=== PATIENT | female | born 1930 | race Caucasian/White ===

== ENCOUNTER 2016-10-19 08:50 | Inpatient (IN) | payer OTHER ==
[2016-10-19] VITALS (21 sets, daily range): BP systolic 119–140; BP diastolic 58–93; PULSE 67–80; RESP 10–22; Ht 152.4 cm; Wt 50.0 kg
[~2016-10-19] VITALS: Ht 152.4 cm; Wt 50.0 kg
[~2016-10-19 08:50] MED LIST: ACET-2047 PO; AMIO100T4 PO; BENA20TA65 PO; BISA5TAB6 PO; CALC-277 PO; CLOP75TA27 PO; CRAN425C PO; DOCU-159 PO; DULR PR; FLEETOIL PR; FURO-109 PO; HYDR-3498 PO; IPRA3AMP HHN; ISOS20TA19 PO; MAGN400O4 PO; METO-448 PO; MULT-551 PO; NIT4 SL; PANT40TA4 PO
[2016-10-19] MEDS ORDERED: CEFAZOLIN 1 GM/50 ML (PMX) 50 ML IVPB ONE (09:00)
[2016-10-19] MEDS ORDERED: IPRA3AMP INHALATION (09:48)
[2016-10-19] MEDS ORDERED: ZOLP5TAB PO (09:48)
[2016-10-19 10:06] LABS: ADD SCAN DIFF NO
[2016-10-19 10:12] LABS: BASOPHIL # 0.1 10^3/ul (0.0-0.1); BASOPHILS % 0.8 % (0.0-2.0); EOSINOPHILS # 0.1 10^3/ul (0.0-0.5); EOSINOPHILS % 1.1 % (0.0-7.0); HEMOGLOBIN 11.5 g/dl (12.0-16.0); LYMPHOCYTES # 1.7 10^3/ul (0.8-2.9); LYMPHOCYTES % 26.8 % (15.0-51.0); MEAN CORPUSCULAR HEMOGLOBIN 27.7 pg (29.0-33.0); MEAN CORPUSCULAR HGB CONC 30.3 g/dl (32.0-37.0); MEAN CORPUSCULAR VOLUME 91.6 fl (82.0-101.0); MEAN PLATELET VOLUME 9.8 fl (7.4-10.4); MONOCYTE # 0.6 10^3/ul (0.3-0.9); MONOCYTES % 8.8 % (0.0-11.0); NEUTROPHILS % 62.2 % (39.0-77.0); PLATELET COUNT 324 10^3/UL (140-415); RED BLOOD COUNT 4.15 10^6/ul (4.20-5.40); RED CELL DISTRIBUTION WIDTH 16.9 % (11.5-14.5); WHITE BLOOD COUNT 6.4 10^3/ul (4.8-10.8)
[2016-10-19] MEDS ORDERED: OMEPRAZOLE (10:22)
[2016-10-19 10:28] LABS: INR 1.15; PARTIAL THROMBOPLASTIN TIME 30.6 Sec (25.0-35.0); POTASSIUM 3.7 mmol/L (3.5-5.1); PROTIME 14.7 Sec (12.2-14.2); PT RATIO 1.1
[2016-10-19 10:29] LABS: CALCIUM 8.6 mg/dl (8.4-10.2); CREATININE 1.03 mg/dl (0.44-1.00)
[2016-10-19] MEDS ORDERED: HEPARIN 1000 UNITS/NS (A-LINE) 1,000 ML ONE (12:32)
[2016-10-19] MEDS ORDERED: LIDOCAINE 1% (MDV) 20 ML INJ ONE (12:32)
[2016-10-19] MEDS ORDERED: IODIXANOL LOCM 100 ML BTL ONE (12:32)
[2016-10-19] MEDS ORDERED: FENTAnyl 50 MCG/ML VIAL ONE (12:55)
[2016-10-19] MEDS ORDERED: IODIXANOL LOCM 50 ML BTL ONE (13:12)
[2016-10-19] MEDS ORDERED: CLOPIDOGREL 75 MG TAB PO SCH (14:00)
[2016-10-19] MEDS: SOD CHLORIDE 0.45% 1,000 ML IV SCH (14:33)
[2016-10-19] MEDS: ASPIRIN 81 MG TAB PO SCH (14:47)
--- NOTE | 2016-10-19 16:01 | RADRPT ---
Vent Rate: 73 bpm RR Interval: 0 msec [place] Interval: 208 msec QRS Duration: 90 msec QT Interval: 420 msec QTC Interval: 462 msec P-R-T [place]: 23 - 58 - 42 degrees Normal sinus rhythm Normal ECG Electronically Signed By: Adelfo Muse [id number]
--- NOTE | 2016-10-19 16:02 | RADRPT ---
Vent Rate: 75 bpm RR Interval: 0 msec VT Interval: 188 msec QRS Duration: 86 msec QT Interval: 400 msec QTC Interval: 446 msec P-R-T [place]: 50 - 59 - 53 degrees Normal sinus rhythm Septal infarct , age undetermined Abnormal ECG Electronically Signed By: Adelfo Muse [id number]
--- NOTE | 2016-10-19 20:23 | QN ---
Documentation Comment [id number] CHANTEL COLLINS MD Oct 19, 2016 20:23
[2016-10-19] MEDS ORDERED: BISACODYL 10 MG SUPP PR PRN (20:30)
[2016-10-19] MEDS ORDERED: MAGNESIUM HYDROXIDE 30ML CUP PO PRN (20:30)
[2016-10-19] MEDS ORDERED: ACETAMINOPHEN 325 MG TAB PO PRN (20:30)
[2016-10-19] MEDS ORDERED: HYDROCODONE/APAP (5/325) TAB PO PRN (20:30)
[2016-10-19] MEDS ORDERED: ZOLPIDEM 5 MG TAB PO PRN (20:30)
[2016-10-19] MEDS ORDERED: DOCUSATE SODIUM 100 MG CAP PO PRN (20:30)
[2016-10-19] MEDS ORDERED: ALBUTEROL/IPRATROPIUM (NEB) 3 ML AMP HHN PRN (20:30)
[2016-10-19] MEDS ORDERED: NITROGLYCERIN (SL) 0.4 MG TAB SL PRN (20:30)
[2016-10-19] MEDS ORDERED: BISACODYL (EC) 5 MG TAB PO PRN (20:30)
[2016-10-19] MEDS ORDERED: FUROSEMIDE 40 MG TAB PO SCH (21:00)
[2016-10-19] MEDS: ALBUTEROL/IPRATROPIUM (NEB) 3 ML AMP HHN SCH (21:39)
[2016-10-19] MEDS: METOPROLOL 25 MG TAB PO SCH (22:12)
[2016-10-19] MEDS: FUROSEMIDE 40 MG TAB PO SCH (22:12)
[2016-10-19] MEDS: ISOSORBIDE DINITRATE 20 MG TAB PO SCH (22:12)
[2016-10-20] VITALS (23 sets, daily range): BP systolic 102–133; BP diastolic 65–91; PULSE 61–73; RESP 10–22
[2016-10-20] MEDS: ALBUTEROL/IPRATROPIUM (NEB) 3 ML AMP HHN SCH ×4 (01:59→19:32)
--- NOTE | 2016-10-20 03:11 | HP ---
DATE OF ADMISSION: 10/19/2016 HISTORY OF PRESENT ILLNESS: The patient is a long term resident with history of CAD, CHF, CKD wh o presented here and underwent left heart catheterization with possible intervention by Dr. Dany sheridan. The patient has electrolyte imbalance and will need further treatment and is admitted for f urther management. The patient herself is unable to give any detailed history. PAST MEDICAL HISTORY: Positive for dyslipidemia, CKD, CAD, CHF. The patient has a history of diabe abdiel mellitus, congestive heart failure, hypertension, hyperlipidemia, atrial fibrillation, CAD, mitr al valve regurgitation, severe aortic stenosis, CAD status post PCI of the LAD. The patient has his tory of decreased ejection fraction, resolving. ALLERGIES: Negative. MEDICATION HISTORY: The patient is on 1. Tylenol. 2. Hydrocodone. 3. Albuterol. 4. Amiodarone. 5. Benazepril. 6. Bisacodyl. 7. Calcium carbonate. 8. Plavix. 9. Cranberry extract. 10. Docusate sodium. 11. Lasix. 12. Isosorbide. 13. Magnesium. 14. Metoprolol. 15. Mineral oil. 16. Multiple vitamin. 17. Nitroglycerin. 18. Protonix. 19. Ambien. REVIEW OF SYSTEMS: Cannot be obtained since the patient has been sleepy, weak. PHYSICAL EXAMINATION: GENERAL: The patient is a thin-looking female, awake, alert. VITAL SIGNS: Pulse 71, blood pressure 122/80. HEENT: Head is atraumatic, normocephalic. Pupils appear reactive. Conjunctivae have no icterus. NECK: Supple. LUNGS: Clear. CARDIOVASCULAR: S1, S2 normal. The patient has at least IV/ systolic murmur noted. ABDOMEN: Soft, nontender. Bowel sounds present. No palpable mass. EXTREMITIES: No cyanosis, clubbing. Edema positive. CENTRAL NERVOUS SYSTEM: The patient is awake, alert, no focal deficit. LABORATORY DATA: Hematocrit 38. Sodium 130, potassium 3.7, BUN 40, creatinine 1.03. IMPRESSION: 1. The patient is status post coronary angiogram. 2. Chronic kidney disease, coronary artery disease, diabetes mellitus, congestive heart failure. T he patient has aortic stenosis. The patient has mitral regurgitation. History of coronary artery d isease status post percutaneous coronary intervention, diabetes mellitus, hyperlipidemia, cardiac ar rhythmia. PLAN: To continue to follow recommendation from Dr. Dany He. The patient will have home med ications reviewed and continued. Orders were done. Dictated By: CHANTEL COLLINS MD BS/NTS Conf#: [id number] DID#: [id number]
--- NOTE | 2016-10-20 04:11 | OPR ---
DATE OF OPERATION: 10/19/2016 INDICATION FOR THE PROCEDURE: Chest pain, shortness of breath, abnormal cardiac stress test, histor y of stent placements. The patient has a stent in the RCA and a stent in the LAD already. PROCEDURE: 1. Left heart catheterization. 2. Selective right coronary angiography. 3. Selective left coronary angiography. 4. Left ventriculogram. 5. Right femoral artery angiography. 6. Conscious sedation for 1 hour. 7. Autonomic nervous system interrogation. 8. Defibrillator pad placement anteriorly and posteriorly. DESCRIPTION OF PROCEDURE: After informed consent was obtained by the patient, the patient was broug ht into the cardiac catheterization laboratory where the patient's right groin and left groin were p repped and draped in usual sterile fashion. Following this, 1% lidocaine was used in order to infil trate the right groin. Then, following this, the patient then received a 6-Luxembourger sheath into the r ight femoral artery with no complications followed by sheaths placed over the wire system into the r ight coronary artery, left coronary artery, as well as the left ventricle. FINDINGS: 1. The left main coronary artery was patent. 2. The patient had a stent in the LAD, proximal region; however, prior to the stent, there was appr oximately 20% to 30% narrowing. 3. The RCA had a stent in the proximal region; however, distally, the patient had diffuse disease, approximately 80% to 90%. 4. The circumflex coronary artery had approximately 60 to 80% lesion. I have recommended for the patient to be seen by Dr. Sandoval for intervention. He will evaluate her and follow through from here. Left ventriculogram was performed, and ejection fraction was not well visualized. As a result, the patient will require an echocardiogram. IMPRESSION AND PLAN: The patient has coronary artery disease which will be stented by Dr. Sandoval to morning. Ejection fraction will be evaluated by an echo. In addition to this, the patient h as chronic kidney disease with a creatinine that is elevated. Therefore, the patient will require I V hydration tonight. Dictated By: DEJAH CAICEDO MD LP/NTS Conf#: [id number] DID#: [id number]
[2016-10-20] MEDS: SOD CHLORIDE 0.45% 1,000 ML IV SCH (04:38)
[2016-10-20] MEDS: FUROSEMIDE 40 MG TAB PO SCH ×2 (06:24→18:19)
[2016-10-20] MEDS ORDERED: IODIXANOL LOCM 100 ML BTL ONE (06:53)
[2016-10-20] MEDS ORDERED: LIDOCAINE 1% (MDV) 20 ML INJ ONE (06:53)
[2016-10-20] MEDS ORDERED: NITROGLYCERIN (IC) 100 MCG/ML INJ ONE (06:54)
[2016-10-20] MEDS ORDERED: VERAPAMIL 5 MG INJ ONE (06:54)
[2016-10-20] MEDS ORDERED: FENTAnyl 50 MCG/ML VIAL ONE (06:55)
[2016-10-20] MEDS ORDERED: MIDAZOLAM 1 MG/ML 2 ML INJ ONE (06:55)
[2016-10-20 07:09] LABS: ADD SCAN DIFF NO
[2016-10-20 07:13] LABS: BASOPHILS % 0.7 % (0.0-2.0); EOSINOPHILS % 0.7 % (0.0-7.0); HEMATOCRIT 33.7 % (37.0-47.0); HEMOGLOBIN 10.4 g/dl (12.0-16.0); LYMPHOCYTES # 1.8 10^3/ul (0.8-2.9); LYMPHOCYTES % 29.9 % (15.0-51.0); MEAN CORPUSCULAR HEMOGLOBIN 28.4 pg (29.0-33.0); MEAN CORPUSCULAR HGB CONC 30.9 g/dl (32.0-37.0); MEAN CORPUSCULAR VOLUME 92.1 fl (82.0-101.0); MONOCYTE # 0.4 10^3/ul (0.3-0.9); NEUTROPHIL # 3.6 10^3/ul (1.6-7.5); NEUTROPHILS % 61.2 % (39.0-77.0); PLATELET COUNT 316 10^3/UL (140-415); RED BLOOD COUNT 3.66 10^6/ul (4.20-5.40); RED CELL DISTRIBUTION WIDTH 16.8 % (11.5-14.5); WHITE BLOOD COUNT 5.9 10^3/ul (4.8-10.8)
[2016-10-20] MEDS ORDERED: BIVALIRUDIN 250MG /NS 50 ML 50 ML IVPB ONE (07:27)
[2016-10-20 07:30] LABS: POTASSIUM 3.8 mmol/L (3.5-5.1)
[2016-10-20 07:32] LABS: BILIRUBIN,INDIRECT 0.4 mg/dl (0-1.1); BILIRUBIN,TOTAL 0.4 mg/dl (0.2-1.3); CREATININE 1.01 mg/dl (0.44-1.00)
[2016-10-20 07:33] LABS: CALCIUM 8.1 mg/dl (8.4-10.2)
[2016-10-20] MEDS ORDERED: CLOPIDOGREL 75 MG TAB ONE (08:28)
[2016-10-20] MEDS ORDERED: ASPIRIN 81 MG TAB ONE (08:29)
--- NOTE | 2016-10-20 08:40 | CONS ---
DATE OF ADMISSION: 10/19/2016 DATE OF CONSULTATION: 10/20/2016 INTERVENTIONAL CARDIOLOGY CONSULTATION REFERRING PHYSICIAN: Dejah He MD REASON FOR CONSULTATION: Coronary artery disease, need for intervention. CHIEF COMPLAINT: Dyspnea on exertion. HISTORY OF PRESENT ILLNESS: Thank you for this referral. History is obtained from the patient, rev iew of the old chart. A patient of Dr. He. This is an 86-year-old female with history of c oronary artery disease, status post PCI of LAD, paroxysmal atrial fibrillation, congestive heart elyssa lure, mitral valve disorder who underwent diagnostic angiography yesterday because of her symptomati c dyspnea on exertion consistent with her anginal equivalent. The patient was noted to have severe right coronary artery stenosis. We were kindly asked to evaluate the patient, and after hydration f or intervention. The patient has chronic kidney disease and was felt, as mentioned, maybe better hy dration prior to intervention. PAST MEDICAL HISTORY: History of coronary artery disease, status post PCI of LAD, history of paroxy smal atrial fibrillation, history of chronic kidney disease, congestive heart failure, history of mi tral valve regurgitation appeared to be CVA, history of aortic stenosis. History of dyslipidemia, d iabetes. MEDICATIONS: As per medication reconciliation, personally reviewed. Eliquis on hold now. ALLERGIES: NO KNOWN DRUG ALLERGIES. SOCIAL HISTORY: Does not smoke, lives in a halfway. FAMILY HISTORY: No reported coronary artery disease. REVIEW OF SYSTEMS: As above mentioned. Is not very active, uses assistance to walk. PHYSICAL EXAMINATION: VITAL SIGNS: Temperature 97.4, heart rate of 66, blood pressure 115/70, respiratory rate of 14, sat urating 96%. HEENT: Normocephalic, atraumatic. Pupils are equal. CARDIOVASCULAR: ____ systolic murmur. PULMONARY: With no wheezes heard. GASTROINTESTINAL: Soft, nontender. EXTREMITIES: No significant trivial lower extremity edema. NEUROLOGIC: Awake and alert, responds. PSYCHIATRIC: Appears to be calm and pleasant. LABORATORY DATA: Shows sodium 137, potassium 3.7, BUN of 40, creatinine of 1.03, glucose of 98. Mo st recent one showed hemoglobin of 10.4, platelets of 316. Cardiac catheterization done by Dr. Dejah He was personally reviewed which showed right [place] ry artery is heavily calcified, diffusely diseased, up to 80% to 90% stenosis. ASSESSMENT AND PLAN: 1. Angina equivalent. 2. Dyspnea on exertion. 3. Significant coronary artery disease. 4. History of paroxysmal atrial fibrillation 5. Hypertension. 6. Dyslipidemia. 7. Diabetes. 8. History of mitral valve regurgitation. 9. Congestive heart failure. 10. Chronic kidney disease. RECOMMENDATIONS: Will plan for PCI of the right coronary artery. Risks and benefits have been disc ussed with the patient including infection, vascular complication, bleeding complication, MD, stroke , arrhythmia, , renal failure, etc., discussed with the patient. Consent has been obtained. Dictated By: MELIDA FENTON MD AV/NTS Conf#: [id number] DID#: [id number] CC: DEJAH HE MD;*End*
[2016-10-20] MEDS ORDERED: SOD CHLORIDE 0.9% 1,000 ML IV SCH (08:45)
[2016-10-20] MEDS: METOPROLOL 25 MG TAB PO SCH ×2 (09:00→20:50)
[2016-10-20] MEDS: ISOSORBIDE DINITRATE 20 MG TAB PO SCH ×3 (09:00→20:50)
[2016-10-20] MEDS ORDERED: ACETAMINOPHEN 325 MG TAB PO PRN (09:00)
[2016-10-20] MEDS: BENAZEPRIL 20 MG TAB PO SCH (09:00)
[2016-10-20] MEDS: PANTOPRAZOLE (EC) 40 MG TAB PO SCH (09:00)
[2016-10-20] MEDS: AMIODARONE 200 MG TAB PO SCH (09:00)
[2016-10-20] MEDS ORDERED: OXYCODONE/ACETAMINOPHEN (5/325) TAB PO PRN (09:00)
[2016-10-20] MEDS: CALCIUM/VITAMIN D (500/200) TAB PO SCH (09:00)
--- NOTE | 2016-10-20 09:17 | SP ---
DATE OF PROCEDURE: 10/20/2016 NAME OF PROCEDURE: 1. Selective right coronary angiography. 2. Successful percutaneous transluminal coronary angioplasty and stenting of the distal right coron brandy artery and subsequent angioplasty of the posterior descending artery. SURGEON: Melida Sandoval MD INDICATIONS: This is a pleasant 86-year-old female who was recommended to undergo PCI of the right coronary artery after diagnostic angiography done by Dr. Dejah He which showed significant rig ht coronary artery stenosis. The patient also with angina equivalent symptoms. FINDINGS: Right coronary is diffusely diseased. Distally, up to 80 to 90% stenosis. The posterior descending artery is a small vessel and had about 90% stenosis. After successful PTCA stenting of the distal right coronary artery and angioplasty of the PDA, there was less than 10% residual stenos is left. DESCRIPTION OF PROCEDURE: Written informed consent was obtained after risks and benefits discussed with the patient in detail. The patient was brought to the phlebotomist lab assistant and placed in supine position, prepped and draped in sterile fashion. Right coronary was anesthetized with 1% lidocaine, modified Seldinger technique, a 6-Slovak sheath in the right femoral artery. Right femoral angiogram was per formed. The right side was perclosed, and a 6-Slovak long sheath was placed in right femoral artery . JR4 catheter was advanced to the right coronary artery. Angiogram was obtained. BMW wire used t o cross the lesion in the posterior descending artery. A 2.0 balloon was used and inflated in the p osterior descending artery as well as distal right coronary artery. Angiogram was obtained. She ap peared to have a heavily calcified lesion in the distal right coronary artery. A 2.0 noncompliant b alloon was used to predilate this vessel with a noncompliant balloon. Angiogram was obtained. Then , I used a yudi wire to advance a 2.5 x 24 mm Seldinger drug-eluting to the distal right coronary a rtery. Angiogram was obtained. It was deployed. Then, another 2.5 x 32 mm was placed proximal to i t into the mid to distal right coronary artery and deployed at 18 atmospheres. The balloon was adva nced. The overlapping area was post-dilated up to 16 atmospheres. Angiogram was obtained. Then, I used a 3.0 noncompliant balloon to open up the distal portion which appeared to be not completely e xpanding. It was postdilated up to 20 atmospheres. Finally, I used a 2.0 balloon which was placed across the posterior descending artery which was ballooned and dilated at 8 atmospheres. Final rito ogram was obtained with LISA 3 flow, no evidence of dissection, and less than 10% residual stenosis. Catheter and Glidewire were removed. Perclose was successfully deployed. The patient tolerated t he procedure well with no apparent complication. TOTAL CONTRAST USED: 45 mL RECOMMENDATIONS: Aggressive medical therapy, dual antiplatelet therapy. Dictated By: MELIDA SANDOVAL MD AV/JOVANY Conf#: [id number] DID#: [id number] CC: DEJAH HE MD;*End*
[2016-10-20] MEDS: ASPIRIN 81 MG TAB PO SCH (10:05)
[2016-10-20] MEDS: CLOPIDOGREL 75 MG TAB PO SCH (10:11)
--- NOTE | 2016-10-20 12:12 | CONS ---
Date/Time of Note Date/Time of Note DATE: 10/20/16 TIME: 12:09 Assessment/Plan Assessment/Plan Chief Complaint/Hosp Course 1. Status post coronary angiogram, pt is stable. 2. Chronic kidney disease, 3. coronary artery disease, 4. Diabetes mellitus, controlled 5. CHF, exacerbation 6. hyperlipidemia, Problems: Additional Assessment/Plan 1/. PT can be transferred to telemetry service 2. continue oxygen therapy Consultation Date/Type/Reason Admit Date/Time Oct 19, 2016 at 15:45 Initial Consult Date 24 HR Interval Summary Constitutional: improved Exam/Review of Systems Vital Signs Vitals Vital Signs Date Time Temp Pulse Resp B/P Pulse Ox O2 Delivery O2 Flow Rate FiO2 10/20/16 10:30 61 17 127/91 100 Nasal Cannula 10/20/16 09:30 97.5 10/20/16 09:15 2.0 10/19/16 21:48 21 Intake and Output 10/19/16 10/19/16 10/20/16 15:00 23:00 07:00 Intake Total 120 ml 1550 ml Balance 120 ml 1550 ml Exam Constitutional: alert, oriented Psych: no complaints Head: normocephalic Eyes: nl conjunctiva ENMT: nl external ears & nose Neck: supple Respiratory: crackles/rales Cardiovascular: regular rate and rhythm Gastrointestinal: soft Musculoskeletal: muscle weakness Results Result Diagram: 10/20/16 0648 10/20/16 0635 Results 24 hrs Laboratory Tests Test 10/20/16 06:35 10/20/16 06:48 Sodium Level 133 L Potassium Level 3.8 Chloride Level 97 Carbon Dioxide Level 29 Anion Gap 11 Blood Urea Nitrogen 35 H Creatinine 1.01 H Glucose Level 84 Calcium Level 8.1 L Total Bilirubin 0.4 Direct Bilirubin 0.00 Indirect Bilirubin 0.4 Aspartate Amino Transf (AST/SGOT) 31 Alanine Aminotransferase (ALT/SGPT) 28 Alkaline Phosphatase 132 H Total Protein 6.0 L Albumin 3.0 L Globulin 3.00 Albumin/Globulin Ratio 1.00 White Blood Count 5.9 Red Blood Count 3.66 L Hemoglobin 10.4 L Hematocrit 33.7 L Mean Corpuscular Volume 92.1 Mean Corpuscular Hemoglobin 28.4 L Mean Corpuscular Hemoglobin Concent 30.9 L Red Cell Distribution Width 16.8 H Platelet Count 316 Mean Platelet Volume 10.0 Neutrophils % 61.2 Lymphocytes % 29.9 Monocytes % 7.0 Eosinophils % 0.7 Basophils % 0.7 Nucleated Red Blood Cells % 0.0 Neutrophils # 3.6 Lymphocytes # 1.8 Monocytes # 0.4 Eosinophils # 0.0 Basophils # 0.0 Nucleated Red Blood Cells # 0.0 Medications Medications Current Medications Sodium Chloride (1/2 NS) 1,000 ml @ 75 mls/hr [id number] IV Last administered on 10/20/16 04:38; Admin Dose 75 MLS/HR; Start 10/19/16 at 14:00; Stop 10/20/16 at 14:00 Aspirin (Aspirin) 81 mg DAILY PO Last administered on 10/20/16 10:05; Admin Dose 81 MG; Start 10/19/16 at 14:00 Acetaminophen (Tylenol Tab) 650 mg Q6H PRN PO PAIN AND OR ELEVATED TEMP; Start 10/19/16 at 20:30 Amiodarone HCl (Cordarone) 100 mg DAILY PO ; Start 10/20/16 at 09:00 Benazepril HCl (Lotensin) 20 mg DAILY PO ; Start 10/20/16 at 09:00 Bisacodyl (Dulcolax) 5 mg DAILY PRN PO CONSTIPATION; Start 10/19/16 at 20:30 Bisacodyl (Dulcolax Supp) 10 mg DAILY PRN [place] CONSTIPATION; Start 10/19/16 at 20 :30 Calcium/Vitamin D (Oyster Shell/ Vit-D (500/200)) 1 tab DAILY PO ; Start at 09:00 Clopidogrel Bisulfate (plaVIX) 75 mg DAILY PO Last administered on 10/20/16 10 :11; Admin Dose 75 MG; Start 10/20/16 at 09:00 Docusate Sodium (Colace) 200 mg QHS PRN PO CONSTIPATION; Start 10/19/16 at 20: 30 Isosorbide Dinitrate (Isordil) 20 mg TID PO Last administered on 10/19/16 22: 12; Admin Dose 20 MG; Start 10/19/16 at 21:00 Magnesium Hydroxide (Milk Of Mag) 30 ml DAILY PRN PO CONSTIPATION; Start at 20:30 Metoprolol Tartrate (Lopressor) 25 mg BID PO Last administered on 10/19/16 22: 12; Admin Dose 25 MG; Start 10/19/16 at 21:00 Nitroglycerin (Nitroglycerin (Sl Tab) 0.4 Mg) 1 tab Q5M PRN SL ANGINA; Start at 20:30 Pantoprazole (Protonix Tab) 40 mg DAILY PO ; Start 10/20/16 at 09:00 Zolpidem Tartrate (Ambien) 2.5 mg QHS PRN PO INSOMNIA; Start 10/19/16 at 20:30 Influenza Virus Vaccine (Fluzone) 0.5 ml ONCE ONCE IM* ; Start 10/23/16 at 09:00 ; Stop 10/23/16 at 09:01 Acetaminophen (Tylenol Tab) 650 mg Q4H PRN PO NON-CARDIAC PAIN LEVEL 1-3; Start 10/20/16 at 09:00 Oxycodone/ Acetaminophen 1 tab 1 tab Q4H PRN PO REPORTED NON-CARDIAC PAIN 4-7; Start 10/20/16 at 09:00 Sodium Chloride (NS) 1,000 ml @ 75 mls/hr [id number] IV Last administered on 10/20t 10:05; Admin Dose 75 MLS/HR; Start 10/20/16 at 08:45; Stop 10/20/16 at 22: 04 Atorvastatin Calcium (Lipitor) 20 mg HS PO ; Start 10/20/16 at 21:00 KAVON BLANK Oct 20, 2016 12:12
--- NOTE | 2016-10-20 14:14 | RADRPT ---
Vent Rate: 64 bpm RR Interval: 0 msec [place] Interval: 230 msec QRS Duration: 92 msec QT Interval: 456 msec QTC Interval: 470 msec P-R-T [place]: 24 - 54 - 36 degrees Sinus rhythm with 1st degree AV block Otherwise normal ECG Electronically Signed By: Adelfo Muse [id number]
[2016-10-20] MEDS ORDERED: GLUCOSE GEL 15 GRAM TUBE PO PRN ×2 (18:30)
[2016-10-20] MEDS ORDERED: DEXTROSE 50% 50 ML SYRINGE IV PRN ×2 (18:30)
[2016-10-20] MEDS ORDERED: GLUCAGON 1 MG INJ IM PRN (18:30)
[2016-10-20] MEDS ORDERED: GLUCOSE GEL 15 GRAM TUBE BUCCAL PRN (18:30)
[2016-10-20] MEDS ORDERED: ONDANSETRON 4 MG INJ IV PRN (18:30)
[2016-10-20] MEDS: INSULIN ASPART [NOVOLOG] 3 ML PEN SC SCH (20:50)
[2016-10-20] MEDS ORDERED: ATORVASTATIN 20 MG TAB PO SCH (21:00)
[2016-10-21] VITALS (17 sets, daily range): BP systolic 107–146; BP diastolic 69–85; PULSE 60–83; RESP 11–25
[2016-10-21] MEDS: ALBUTEROL/IPRATROPIUM (NEB) 3 ML AMP HHN SCH ×3 (01:08→14:44)
[2016-10-21] MEDS ORDERED: ACCU-CHEK XX SCH (02:00)
[2016-10-21 05:08] LABS: ADD SCAN DIFF NO
[2016-10-21 05:17] LABS: BASOPHIL # 0.1 10^3/ul (0.0-0.1); BASOPHILS % 0.8 % (0.0-2.0); EOSINOPHILS # 0.1 10^3/ul (0.0-0.5); EOSINOPHILS % 0.9 % (0.0-7.0); HEMATOCRIT 34.6 % (37.0-47.0); HEMOGLOBIN 10.3 g/dl (12.0-16.0); LYMPHOCYTES # 1.6 10^3/ul (0.8-2.9); MEAN CORPUSCULAR HEMOGLOBIN 27.5 pg (29.0-33.0); MEAN CORPUSCULAR HGB CONC 29.8 g/dl (32.0-37.0); MEAN CORPUSCULAR VOLUME 92.5 fl (82.0-101.0); MEAN PLATELET VOLUME 9.9 fl (7.4-10.4); MONOCYTE # 0.7 10^3/ul (0.3-0.9); MONOCYTES % 10.9 % (0.0-11.0); NEUTROPHIL # 4.1 10^3/ul (1.6-7.5); NEUTROPHILS % 62.8 % (39.0-77.0); PLATELET COUNT 280 10^3/UL (140-415); RED BLOOD COUNT 3.74 10^6/ul (4.20-5.40); RED CELL DISTRIBUTION WIDTH 17.1 % (11.5-14.5); WHITE BLOOD COUNT 6.6 10^3/ul (4.8-10.8)
[2016-10-21] MEDS: FUROSEMIDE 40 MG TAB PO SCH (05:26)
[2016-10-21 05:33] LABS: POTASSIUM 3.8 mmol/L (3.5-5.1)
[2016-10-21 05:36] LABS: CREATININE 1.09 mg/dl (0.44-1.00)
[2016-10-21 05:37] LABS: CALCIUM 7.9 mg/dl (8.4-10.2)
[2016-10-21] MEDS: INSULIN ASPART [NOVOLOG] 3 ML PEN SC SCH ×2 (07:35→11:30)
--- NOTE | 2016-10-21 07:45 | PDOCDIS ---
Discharge Instructions CONDITION Patient Condition: Stable HOME CARE INSTRUCTIONS: Diet Instructions: Low Fat /Cholesterol ACTIVITY: Activity Restrictions: Slowly Increase Activity FOLLOW UP/APPOINTMENTS Appointments F/U W DR COLLINS AT [facility] [address] [address] CHANTEL COLLINS MD Oct 21, 2016 07:45
[2016-10-21] MEDS ORDERED: ASPI81TA3 PO (07:47)
[2016-10-21] MEDS ORDERED: ACET325T40 PO (07:47)
[2016-10-21] MEDS ORDERED: Oxycodone/Acetamin (5/325) PO (07:47)
[2016-10-21] MEDS ORDERED: ATOR20TA65 PO (07:47)
[2016-10-21] MEDS: METOPROLOL 25 MG TAB PO SCH (09:00)
[2016-10-21] MEDS: PANTOPRAZOLE (EC) 40 MG TAB PO SCH (09:19)
[2016-10-21] MEDS: CLOPIDOGREL 75 MG TAB PO SCH (09:19)
[2016-10-21] MEDS: ISOSORBIDE DINITRATE 20 MG TAB PO SCH ×2 (09:20→13:18)
[2016-10-21] MEDS: CALCIUM/VITAMIN D (500/200) TAB PO SCH (09:20)
[2016-10-21] MEDS: BENAZEPRIL 20 MG TAB PO SCH (09:21)
[2016-10-21] MEDS: AMIODARONE 200 MG TAB PO SCH (09:23)
[2016-10-21] MEDS: ASPIRIN 81 MG TAB PO SCH (09:24)
[2016-10-23] MEDS ORDERED: INFLUENZA VIRUS VACCINE 0.5 ML SYG IM* ONE (09:00)
== END 2016-10-21 17:50 | DRG 247 ==
LOC: SDS 08:50 → MS4 15:45 → ICU 10-20 08:57
PROVIDERS: ADMIT Internal Medicine; ATTEND Internal Medicine
PROC: B2111ZZ Fluoroscopy of Multiple Coronary Arteries using Low Osmolar Contrast (ICD-10-PCS; 2016-10-19)
PROC: B2151ZZ Fluoroscopy of Left Heart using Low Osmolar Contrast (ICD-10-PCS; 2016-10-19)
PROC: 4A023N7 Measurement of Cardiac Sampling and Pressure, Left Heart, Percutaneous Approach (ICD-10-PCS; principal; 2016-10-19 11:30)
PROC: 027035Z Dilation of Coronary Artery, One Artery with Two Drug-eluting Intraluminal Devices, Percutaneous Approach (ICD-10-PCS; 2016-10-20 07:30)
DX: I25.119 Atherosclerotic heart disease of native coronary artery with unspecified angina pectoris (principal); E11.9 Type 2 diabetes mellitus without complications; I12.9 Hypertensive chronic kidney disease with stage 1 through stage 4 chronic kidney disease, or unspecified chronic kidney disease; Z95.5 Presence of coronary angioplasty implant and graft; Z79.02 Long term (current) use of antithrombotics/antiplatelets; N18.9 Chronic kidney disease, unspecified
CPT/HCPCS: 80048; 80053; 82962; 85025; 85610; 85730; 87081; 93005; 93454; 93458; 94640; 94664; C1725; C1760; C1769; C1874; C1887; C1894; J0583; J1644; J1815; J2250; J2405; J3010; J7030; Q9967

== ENCOUNTER 2017-02-15 15:03 | Emergency (ER) | payer OTHER ==
[~2017-02-15] VITALS: Ht 149.9 cm; Wt 55.0 kg
[~2017-02-15 15:03] MED LIST changes: +ACET325T40 PO; +ASPI81TA3 PO; +ATOR20TA65 PO; +BISA10SU75 PR; -DULR PR; -FLEETOIL PR; +IPRA3AMP INHALATION; +MINE133E23 PR; +OMEPRAZOLE; +Oxycodone/Acetamin (5/325) PO; +ZOLP5TAB PO
[2017-02-15] MEDS ORDERED: SOD CHLORIDE 0.9% 500 ML IV STA (15:13)
[2017-02-15 15:20] VITALS: Ht 149.9 cm; Wt 55.0 kg
[2017-02-15 15:27] LABS: BASOPHIL # 0.1 10^3/ul (0.0-0.1); BASOPHILS % 0.9 % (0.0-2.0); EOSINOPHILS # 0.2 10^3/ul (0.0-0.5); EOSINOPHILS % 2.4 % (0.0-7.0); HEMATOCRIT 28.5 % (37.0-47.0); HEMOGLOBIN 9.3 g/dl (12.0-16.0); LYMPHOCYTES # 1.1 10^3/ul (0.8-2.9); LYMPHOCYTES % 16.6 % (15.0-51.0); MEAN CORPUSCULAR HEMOGLOBIN 32.1 pg (29.0-33.0); MEAN CORPUSCULAR HGB CONC 32.6 g/dl (32.0-37.0); MEAN CORPUSCULAR VOLUME 98.3 fl (82.0-101.0); MEAN PLATELET VOLUME 9.3 fl (7.4-10.4); MONOCYTE # 0.5 10^3/ul (0.3-0.9); MONOCYTES % 8.2 % (0.0-11.0); NEUTROPHIL # 4.5 10^3/ul (1.6-7.5); NEUTROPHILS % 71.3 % (39.0-77.0); PLATELET COUNT 359 10^3/UL (140-415); RED CELL DISTRIBUTION WIDTH 14.6 % (11.5-14.5); WHITE BLOOD COUNT 6.3 10^3/ul (4.8-10.8)
[2017-02-15 15:45] LABS: INR 1.24; PARTIAL THROMBOPLASTIN TIME 30.8 Sec (25.0-35.0); PROTIME 15.7 Sec (12.2-14.2); PT RATIO 1.2
--- NOTE | 2017-02-15 15:48 | RADRPT ---
PROCEDURE: XR Chest. CLINICAL INDICATION: Shortness of breath. TECHNIQUE: A single portable view of the chest was obtained. COMPARISON: 09/12/2016 FINDINGS: The aorta is tortuous and atherosclerotic. The cardiomediastinal silhouette is otherwise enlarged. Diffuse pulmonary vascular congestion is seen with underlying pulmonary edema. Bilateral pleural eff usions are seen. The soft tissues and osseous structures demonstrate benign age related senescent ch anges. IMPRESSION: Radiographic findings consistent with congestive heart failure as described above. RPTAT: [facility] Physician Marla Date Time Electronically viewed and signed by Physician Marla on 02/15/2017 15:47 /
[2017-02-15 16:42] LABS: ALANINE AMINOTRANSFERASE 23 IU/L (13-69); ALBUMIN 2.3 g/dl (3.3-4.9); ALBUMIN/GLOBULIN RATIO 0.88; ALKALINE PHOSPHATASE 87 IU/L (42-121); ANION GAP 18 (8-16); ASPARTATE AMINO TRANSFERASE 18 IU/L (15-46); BILIRUBIN,INDIRECT 0.2 mg/dl (0-1.1); BILIRUBIN,TOTAL 0.2 mg/dl (0.2-1.3); BLOOD UREA NITROGEN 37 mg/dl (7-20); CALCIUM 7.9 mg/dl (8.4-10.2); CARBON DIOXIDE 25 mmol/L (21-31); CHLORIDE 103 mmol/L (97-110); CREATININE 0.68 mg/dl (0.44-1.00); GLUCOSE 117 mg/dl (70-220); POTASSIUM 3.6 mmol/L (3.5-5.1); SODIUM 142 mmol/L (135-144); TOTAL PROTEIN 4.9 g/dl (6.1-8.1)
[2017-02-15 16:55] LABS: TROPONIN-I < 0.012 ng/ml (0.00-0.12)
[2017-02-15] MEDS ORDERED: HYDR-906 PO (16:55)
[2017-02-15] MEDS ORDERED: RTPRO5 IH (16:57)
[2017-02-15] MEDS ORDERED: AMIO200T2 PO (16:59)
[2017-02-15] MEDS ORDERED: ASPI-664 PO (17:00)
[2017-02-15] MEDS ORDERED: BENA5TAB2 PO (17:00)
[2017-02-15] MEDS ORDERED: BRIM15DR7 BOTH EYES (17:01)
[2017-02-15] MEDS ORDERED: CILO100T PO (17:02)
[2017-02-15] MEDS ORDERED: DOCU-159 PO (17:02)
[2017-02-15] MEDS ORDERED: FER325 PO (17:03)
[2017-02-15] MEDS ORDERED: IPRA12.93 INHALATION (17:04)
[2017-02-15] MEDS ORDERED: MAGN400T28 PO (17:04)
[2017-02-15] MEDS ORDERED: MULT-105 PO (17:05)
--- NOTE | 2017-02-15 17:05 | ERD ---
ER Documentation Chief Complaint Date/Time DATE: 02/15/17 TIME: 17:03 Chief Complaint pt was recently discharged and sent to [facility]; pt hypotensive HPI This is an 87-year-old female who presents to the emergency room for evaluation of hypotension. The patient is unable to give a history secondary to her cognitive deficits at this time. This patient was recently discharged and was sent to a rehabilitation facility by her primary care physician, Dr. collins, the patient has been afebrile, and the snf was not comfortable accepting this patient in transfer the patient to the emergency room. ROS All systems reviewed and are negative except as per history of present illness. Medications Home Meds Active Scripts [Oxycodone/Acetamin (5/325)] 1 TAB TAB No Conflict Check, 1 TAB PO Q4H Y for REPORTED NON-CARDIAC PAIN 4-7 for 10 Days Prov:CHANTEL COLLINS MD 10/21/16 Acetaminophen (MAPAP) 325 Mg Tablet, 650 MG PO Q4H Y for NON-CARDIAC PAIN LEVEL 1-3 for 10 Days, TAB Prov:CHANTEL COLLINS MD 10/21/16 Atorvastatin Calcium (Atorvastatin Calcium) 20 Mg Tablet, 20 MG PO HS for 28 Days, #30 TAB Prov:CHANTEL COLLINS MD 10/21/16 Nitroglycerin* (Nitrostat*) 0.4 Mg Tab.subl, 1 TAB SL Q5M Y for ANGINA for 28 Days Prov:CHANTEL COLLINS MD 03/20/16 Metoprolol Tartrate* (Lopressor*) 25 Mg Tab, 25 MG PO BID for 28 Days, TAB Prov:CHANTEL COLLINS MD 03/20/16 Clopidogrel Bisulfate (Clopidogrel) 75 Mg Tablet, 75 MG PO DAILY for 28 Days, TAB Prov:CHANTEL COLLINS MD 03/20/16 Reported Medications Docusate Sodium* (Docusate Sodium*) 100 Mg Capsule, 100 MG PO BID, #60 CAP 02/15/17 Cilostazol* (Cilostazol*) 100 Mg Tablet, 100 MG PO DAILY, TAB 02/15/17 Brimonidine Tartrate* (Brimonidine Tartrate*) 0.2%-15ML Drop Opht, 1 DROP BOTH EYES BID, #1 EA 02/15/17 Benazepril Hcl* (Benazepril Hcl*) 5 Mg Tablet, 5 MG PO DAILY, #30 TAB 02/15/17 Aspirin* (Aspirin* EC) 81 Mg Tablet.dr, 81 MG PO DAILY, TAB 02/15/17 Amiodarone Hcl* (Amiodarone Hcl*) 200 Mg Tablet, 100 MG PO DAILY, #30 TAB 02/15/17 Albuterol Sulfate (Albuterol Sulfate) 2.5 Mg/0.5 Ml Vial.neb, 0.5 ML IH Q6H AND Q4H NEEDED DYSPNEA 02/15/17 Hydrocodone/Acetaminophen ([place] 5-325 Tablet) 1 Each Tablet, 1 EACH PO Q4H Y for PAIN, TAB 02/15/17 [Omeprazole] No Conflict Check 10/19/16 Magnesium Hydroxide* (Milk Of Magnesia*) 400 Mg/5 Ml Oral.susp, 30 ML PO DAILY Y for CONSTIPATION, ML 09/12/16 Furosemide* (Lasix*) 40 Mg Tablet, 40 MG PO BID, TAB 09/12/16 Bisacodyl* (Bisacodyl*) 10 Mg Supp, 10 MG [place] DAILY Y for CONSTIPATION, SUPP 09/12/16 Cranberry Extract (Cranberry) 425 Mg Capsule, 425 MG PO DAILY, CAP 09/12/16 Calcium Carbonate/Vitamin D3 (OYSTER SHELL 500 MG + VIT D TB) 1 Each Tablet, 1 EACH PO DAILY, TAB 09/12/16 Pantoprazole* (Pantoprazole*) 40 Mg Tablet.dr, 40 MG PO DAILY, TAB 04/07/16 Discontinued Reported Medications Ipratropium-Albuterol (Ipratropium-Albuterol) 0.5-3 Mg/3 Ml Ampul.neb, 3 ML INHALATION Q6, #30 VIAL 10/19/16 Zolpidem Tartrate* (Ambien*) 5 Mg Tablet, 2.5 MG PO QHS Y for INSOMNIA, #30 TAB 10/19/16 Acetaminophen* (Acetaminophen*) 650 Mg Tablet, 650 MG PO Q6H Y for PAIN AND OR ELEVATED TEMP, #30 TAB 09/12/16 Multivitamin (Once Daily) 1 Each Tablet, 1 EACH PO DAILY, TAB 09/12/16 Benazepril Hcl* (Lotensin*) 20 Mg Tablet, 20 MG PO DAILY, #30 TAB 09/12/16 Mineral Oil* (Fleet* Mineral Oil Enema) 133 Ml Oil, 133 ML [place] NEEDED Y for CONSTIPATION, ENEMA 2/21/17 Docusate Sodium* (Docusate Sodium*) 100 Mg Capsule, 200 MG PO QHS Y for CONSTIPATION, #30 CAP 09/12/16 Amiodarone Hcl* (Amiodarone Hcl*) 100 Mg Tablet, 100 MG PO DAILY, #30 TAB HOLD IF HR BELOW 60 09/12/16 Isosorbide Dinitrate* (Isosorbide Dinitrate*) 20 Mg Tablet, 20 MG PO TID, TAB 04/07/16 Discontinued Scripts Aspirin (Aspirin) 81 Mg Chew, 81 MG PO DAILY for 28 Days, TAB Prov:CHANTEL COLLINS MD 10/21/16 Ipratropium-Albuterol (Ipratropium-Albuterol) 0.5-3 Mg/3 Ml Ampul.neb, 3 ML HHN Q2H RESP THERAPY Y for SHORTNESS OF BREATH for 28 Days Prov:CHANTEL COLLINS MD 04/13/16 Hydrocodone Bit-Acetaminophen (Hydrocodone Bit-APAP) 5-325MG Tablet, 1 TAB PO Q6H Y for MODERATE PAIN LEVEL 4-6 for 14 Days, TAB Prov:CHANTEL COLLINS MD 04/13/16 Bisacodyl* (Bisacodyl*) 5 Mg Tablet.dr, 5 MG PO DAILY Y for CONSTIPATION for 28 Days Prov:CHANTEL COLLINS MD 03/20/16 Allergies Allergies: Coded Allergies: No Known Allergy (Unverified , 02/15/17) PMhx/Soc History of Surgery: Yes (HERNIA SX, RT LOWER EXT FOR CIRCULATION) Anesthesia Reaction: No Hx Neurological Disorder: No Hx Respiratory Disorders: No Hx Cardiac Disorders: Yes (ASHD, PVD, CAD,HTN) Hx Psychiatric Problems: No Hx Miscellaneous Medical Probl: Yes (HX MRSA) Hx Alcohol Use: No Hx Substance Use: No Hx Tobacco Use: No Smoking Status: Never smoker Physical Exam Vitals Vital Signs Date Time Temp Pulse Resp B/P Pulse Ox O2 Delivery O2 Flow Rate FiO2 02/15/17 16:46 63 18 99/53 97 Room Air 02/15/17 15:20 97.1 72 18 86/47 96 Physical Exam INITIAL VITAL SIGNS: Reviewed by me GENERAL: The patient is frail-appearing elderly female in no acute distress HEENT: Dry mucous members, pupils equal, round, and reactive to light. EOMI. There is no scleral icterus. NECK: C-spine is soft and supple, there is no meningismus. There is no cervical lymphadenopathy. LUNGS: Clear to auscultation bilaterally. There are no rales, wheezes or rhonchi. HEART: Regular rate and rhythm, no murmurs, clicks, rubs or gallops. ABDOMEN: Soft, non-tender, non-distended. There are bowel sounds in all four quadrants. No rebound or guarding. EXTREMITIES: There is no peripheral cyanosis or edema. No focal swelling or erythema. NEUROLOGICAL: The patient moves all four extremities with 5/5 strength. Cranial nerves II - XII are intact. Normal gait. Alert and oriented SKIN: There is no apparent rash or petechiae. HEME/LYMPHATIC: There is no evidence of excessive bruising or lymphedema. PSYCHIATRIC: The patient does not appear anxious or depressed. Result Diagram: 02/15/17 1515 02/15/17 1515 Results 24 hrs Laboratory Tests Test 02/15/17 15:15 White Blood Count 6.310^3/ul Red Blood Count 2.9010^6/ul Hemoglobin 9.3g/dl Hematocrit 28.5% Mean Corpuscular Volume 98.3fl Mean Corpuscular Hemoglobin 32.1pg Mean Corpuscular Hemoglobin Concent 32.6g/dl Red Cell Distribution Width 14.6% Platelet Count 20954^3/UL Mean Platelet Volume 9.3fl Neutrophils % 71.3% Lymphocytes % 16.6% Monocytes % 8.2% Eosinophils % 2.4% Basophils % 0.9% Nucleated Red Blood Cells % 0.0/100WBC Neutrophils # 4.510^3/ul Lymphocytes # 1.110^3/ul Monocytes # 0.510^3/ul Eosinophils # 0.210^3/ul Basophils # 0.110^3/ul Nucleated Red Blood Cells # 0.010^3/ul Prothrombin Time 15.7Sec Prothrombin Time Ratio 1.2 INR International Normalized Ratio 1.24 Activated Partial Thromboplast Time 30.8Sec Sodium Level 142mmol/L Potassium Level 3.6mmol/L Chloride Level 103mmol/L Carbon Dioxide Level 25mmol/L Anion Gap 18 Blood Urea Nitrogen 37mg/dl Creatinine 0.68mg/dl Glucose Level 117mg/dl Calcium Level 7.9mg/dl Total Bilirubin 0.2mg/dl Direct Bilirubin 0.00mg/dl Indirect Bilirubin 0.2mg/dl Aspartate Amino Transf (AST/SGOT) 18IU/L Alanine Aminotransferase (ALT/SGPT) 23IU/L Alkaline Phosphatase 87IU/L Troponin I < 0.012ng/ml Total Protein 4.9g/dl Albumin 2.3g/dl Globulin 2.60g/dl Albumin/Globulin Ratio 0.88 Lipase 34U/L Current Medications Medications (Trade) Dose Ordered Sig/You Route PRN Reason Start Time Stop Time Status Last Admin Dose Admin Sodium Chloride (NS) 500 ml @ 500 mls/hr Q1H STAT IV 02/15/17 15:13 02/15/17 16:12 DC Procedures/MDM EKG: Rate/Rhythm: [Normal Sinus Rhythm] QRS, ST, T-waves: [No changes consistent w/ acute ischemia] Impression: [No evidence of ischemia or arrhythmia] Chest X-ray 1V Interpreted by me: Soft Tissue: No acute abnormalities Bones: No acute abnormalities Mediastinum/Cardiac Silhouette/Lungs: [No acute abnormalities] This 87-year-old female presents to the emergency room for evaluation of hypotension. When I evaluated this patient she was nontoxic-appearing, was afebrile. She was not tachycardic and not hypoxic. Lab work was obtained including a urinalysis which is within normal limits. Chest x-ray does show mild pulmonary vascular congestion EKG is nonischemic. The patient was given 500 cc of IV normal saline and upon my reevaluation she does have a systolic blood pressure of 99. I have contacted her primary care physician, Dr. Collins who states this patient's normal blood pressure is 90 systolic. He states that the patient can be discharged back to the snf. I have relayed this information to the patient's nurse who will coordinate with the snf and advised him of the patient's baseline blood pressure is 90 systolic. Departure Diagnosis: Primary Impression: Hypotension Additional Impression: Normocytic anemia Condition: Stable DIANA RIBEIRO DO Feb 15, 2017 17:05
[2017-02-15] MEDS ORDERED: SENN-53 PO (17:06)
[2017-02-15] MEDS ORDERED: ZOLP5TAB7 PO (17:07)
[2017-02-15 17:21] LABS: ADD UMIC YES; UR ASCORBIC ACID NEGATIVE (NEGATIVE); UR BACTERIA MODERATE /HPF (NONE SEEN); UR BILIRUBIN (Dip) NEGATIVE (NEGATIVE); UR BLOOD (Dip) 3+ mg/dL (NEGATIVE); UR CLARITY CLOUDY (CLEAR); UR COLOR YELLOW (YELLOW); UR GLUCOSE (Dip) NEGATIVE (NEGATIVE); UR KETONES (Dip) NEGATIVE (NEGATIVE); UR LEUKOCYTE ESTERASE (Dip) 3+ Leu/ul (NEGATIVE); UR NITRITE (Dip) NEGATIVE (NEGATIVE); UR RBC 20 /HPF (0-5); UR SQUAMOUS EPITHELIAL CELL FEW /HPF (FEW); UR TOTAL PROTEIN (Dip) NEGATIVE (NEGATIVE); UR UROBILINOGEN (Dip) NEGATIVE (NEGATIVE); UR WBC CLUMPS MANY /HPF (NONE SEEN)
[2017-02-15 18:25] VITALS: BP 94/54; PULSE 66; RESP 18
== END 2017-02-15 18:29 | disposition home or self-care (01) ==
LOC: E/R 15:03
DX: I95.9 Hypotension, unspecified (principal); D64.9 Anemia, unspecified; I10 Essential (primary) hypertension; I25.10 Atherosclerotic heart disease of native coronary artery without angina pectoris; Z79.01 Long term (current) use of anticoagulants; Z79.82 Long term (current) use of aspirin
CPT/HCPCS: 36415; 71010; 80053; 81001; 83690; 84484; 85025; 85610; 85730; 93005; J7040; Z7502

== ENCOUNTER 2017-05-15 18:34 | Inpatient (IN) | payer OTHER ==
[~2017-05-15] VITALS: Ht 147.3 cm; Wt 40.0 kg
[~2017-05-15 18:34] MED LIST changes: -ACET-2047 PO; -AMIO100T4 PO; +AMIO200T2 PO; +ASPI-664 PO; -ASPI81TA3 PO; -BENA20TA65 PO; +BENA5TAB2 PO; -BISA5TAB6 PO; +BRIM15DR7 BOTH EYES; +CILO100T PO; -CRAN425C PO; +CRAN425C2 PO; +FER325 PO; -HYDR-3498 PO; +HYDR-906 PO; +IPRA12.93 INHALATION; -IPRA3AMP HHN; -IPRA3AMP INHALATION; -ISOS20TA19 PO; +MAGN400T28 PO; -MINE133E23 PR; +MULT-105 PO; -MULT-551 PO; -OMEPRAZOLE; +RTPRO5 IH; +SENN-53 PO; -ZOLP5TAB PO; +ZOLP5TAB7 PO
[2017-05-15] MEDS ORDERED: FUROSEMIDE 40 MG INJ IV STA (18:43)
[2017-05-15] MEDS ORDERED: ONDANSETRON 4 MG INJ IV PRN (19:30)
[2017-05-15] MEDS ORDERED: ACETAMINOPHEN 325 MG TAB PO PRN (19:30)
--- NOTE | 2017-05-15 20:18 | RADRPT ---
PROCEDURE: XR Chest. CLINICAL INDICATION: Chest pain. TECHNIQUE: Portable AP semi erect view of the chest was obtained. COMPARISON: 02/15/2017 FINDINGS: Marked cardiac silhouette enlargement is again noted. Diffuse pulmonary vascular congestion is gio lar to the prior study. Interval increase in right greater than left pleural effusions and compress praveena atelectasis of the right lower lobe. Right lower lobe pneumonia is difficult to entirely exclude in the proper clinical setting. Diffuse demineralization is again identified but there is no evide nce of acute osseous abnormality. RPTAT:HJJR IMPRESSION: 1. Chronic congestive heart failure changes are worse compared to 02/15/2017. 2. Interval enlargement of right greater than left pleural effusions with worsening right lower lob e consolidation possibly atelectasis however pneumonia with parapneumonic effusion is difficult to e xclude in the proper clinical setting. Correlation with fever and leukocytosis is recommended. Physician Sahra Date Time Electronically viewed and signed by Physician Sahra on 05/15/2017 20:18 /
[2017-05-15] MEDS ORDERED: ASCO-110 PO (22:09)
[2017-05-15] MEDS ORDERED: CRAN3875 PO (22:09)
[2017-05-15] MEDS ORDERED: TYL500 PO (22:11)
[2017-05-15] MEDS ORDERED: LEVO50TA74 PO (22:11)
[2017-05-15] MEDS ORDERED: MYL80 PO (22:12)
[2017-05-15] MEDS ORDERED: SILD20TA13 PO (22:12)
[2017-05-15] MEDS ORDERED: METO25TA4 PO (22:15)
[2017-05-15] MEDS ORDERED: AMIO100T4 PO (22:17)
[2017-05-15] MEDS ORDERED: DOCU-144 PO (22:21)
[2017-05-15] MEDS ORDERED: FLEETPED PR (22:22)
[2017-05-15 22:24] VITALS: TEMP 97.7
[2017-05-15] MEDS ORDERED: FURO-110 PO (22:24)
[2017-05-15] MEDS ORDERED: IPRA3AMP INHALATION (22:25)
--- NOTE | 2017-05-15 22:34 | ERD ---
ER Documentation Chief Complaint Chief Complaint FROM [facility],SENT BY DR. COLLINS FOR BILAT FEET SWELLING HPI Patient is an 87-year-old female with coronary disease, CHF, and hypertension who presents with bilateral feet swelling. The patient was brought in by ambulance. The patient has a history of CHF. The patient has anemia as well. The patient was given oxycodone prior to transfer. The patient has no pain currently. Please note the history and physical exam is limited secondary to the patient's mental status. Upon review of old medical records the patient has multiple visits to the ER with admissions for CHF. She was previously admitted to Dr. Collins. ROS All systems reviewed and are negative except as per history of present illness. Medications Home Meds Active Scripts [Oxycodone/Acetamin (5/325)] 1 TAB TAB No Conflict Check, 1 TAB PO Q4H Y for REPORTED NON-CARDIAC PAIN 4-7 for 10 Days Prov:CHANTEL COLLINS MD 10/21/16 Acetaminophen (MAPAP) 325 Mg Tablet, 650 MG PO Q4H Y for NON-CARDIAC PAIN LEVEL 1-3 for 10 Days, TAB Prov:CHANTEL COLLINS MD 10/21/16 Atorvastatin Calcium (Atorvastatin Calcium) 20 Mg Tablet, 20 MG PO HS for 28 Days, #30 TAB Prov:CHANTEL COLLINS MD 10/21/16 Nitroglycerin* (Nitrostat*) 0.4 Mg Tab.subl, 1 TAB SL Q5M Y for ANGINA for 28 Days Prov:CHANTEL COLLINS MD 03/20/16 Clopidogrel Bisulfate (Clopidogrel) 75 Mg Tablet, 75 MG PO DAILY for 28 Days, TAB Prov:CHANTEL COLLINS MD 03/20/16 Reported Medications Ipratropium-Albuterol (Ipratropium-Albuterol) 0.5-3 Mg/3 Ml Ampul.neb, 3 ML INHALATION Q6, #30 VIAL 05/15/17 Furosemide* (Lasix*) 20 Mg Tablet, 10 MG PO BID, TAB 05/15/17 Sod Phosphate/Sod Biphosphate* (Fleet* Enema Pediatric) 66.6 Ml Soln, 66.6 ML [place] Q2D Y for CONSTIPATION, ENEMA 05/15/17 Docusate Sodium* (Colace*) 100 Mg Capsule, 200 MG PO QHS, #30 CAP 05/15/17 Amiodarone Hcl* (Amiodarone Hcl*) 100 Mg Tablet, 100 MG PO DAILY, #30 TAB HOLD FOR HR BELOW60/MIN 05/15/17 Metoprolol Tartrate* (Lopressor*) 25 Mg Tablet, 25 MG PO BID, #60 TAB HOLD FOR SBP BELOW 110 OR HR BELOW 60 05/15/17 Sildenafil Citrate* (Revatio*) 20 Mg Tab, 20 MG PO TID, TAB 05/15/17 Simethicone* (Mylicon*) 80 Mg Tab, 80 MG PO BID, TAB 05/15/17 Levothyroxine Sodium* (Levothyroxine Sodium*) 50 Mcg Tablet, 50 MCG PO BEFORE BREAKFAST, #30 TAB 05/15/17 Acetaminophen* (Tylenol*) 500 Mg Tab, 1000 MG PO Q4H Y for PAIN, TAB FOR PAIN 4-12/3005/15/17 Cran/Vitc/Mannose/Inulin/Brom (Uti-Stat Liquid) 3,875 Mg/30 Ml Liquid, 30 ML PO DAILY 05/15/17 Ascorbate Calcium (Vitamin C) 500 Mg Tablet, 500 MG PO DAILY, TAB 05/15/17 Sennosides* (Senna Lax*) 8.6 Mg Tablet, 2 TAB PO NEEDED, TAB 02/15/17 Multivitamin with Minerals (Multivitamins with Minerals) 1 Each Tablet, 1 EACH PO DAILY, TAB 02/15/17 Magnesium Oxide* (Magnesium Oxide*) 400 Mg Tablet, 400 MG PO BID, TAB 02/15/17 Ferrous Sulfate* (Ferrous Sulfate*) 325 Mg Tabec, 325 MG PO DAILY, TAB 02/15/17 Docusate Sodium* (Docusate Sodium*) 100 Mg Capsule, 100 MG PO DAILY, #60 CAP 02/15/17 Cilostazol* (Cilostazol*) 100 Mg Tablet, 100 MG PO DAILY, TAB 02/15/17 Brimonidine Tartrate* (Brimonidine Tartrate*) 0.2%-15ML Drop Opht, 1 DROP BOTH EYES BID, #1 EA 02/15/17 Benazepril Hcl* (Benazepril Hcl*) 5 Mg Tablet, 5 MG PO DAILY, #30 TAB HOLD FOR SBP BELOW 110 OR HR BELOW 60 02/15/17 Aspirin* (Aspirin* EC) 81 Mg Tablet.dr, 81 MG PO DAILY, TAB 02/15/17 Magnesium Hydroxide* (Milk Of Magnesia*) 400 Mg/5 Ml Oral.susp, 30 ML PO QHS Y for CONSTIPATION, ML 09/12/16 Bisacodyl* (Bisacodyl*) 10 Mg Supp, 10 MG [place] DAILY Y for CONSTIPATION, SUPP 09/12/16 Cranberry Extract (Cranberry) 425 Mg Capsule, 425 MG PO DAILY, CAP 09/12/16 Calcium Carbonate/Vitamin D3 ([place] 500 MG + VIT D TB) 1 Each Tablet, 1 EACH PO DAILY, TAB 09/12/16 Pantoprazole* (Pantoprazole*) 40 Mg Tablet.dr, 40 MG PO DAILY, TAB 04/07/16 Discontinued Reported Medications Zolpidem Tartrate* (Zolpidem Tartrate*) 5 Mg Tablet, 2.5 MG PO QHS Y for INSOMNIA, #30 TAB 02/15/17 Ipratropium [place]* (Atrovent HFA*) 12.9 Gm Aer.w.adap, 2 PUFF INHALATION QID, #1 INHALER 02/15/17 Amiodarone Hcl* (Amiodarone Hcl*) 200 Mg Tablet, 100 MG PO DAILY, #30 TAB 02/15/17 Albuterol Sulfate (Albuterol Sulfate) 2.5 Mg/0.5 Ml Vial.neb, 0.5 ML IH Q6H AND Q4H NEEDED DYSPNEA 02/15/17 Hydrocodone/Acetaminophen ([place] 5-325 Tablet) 1 Each Tablet, 1 EACH PO Q4H Y for PAIN, TAB 02/15/17 Furosemide* (Lasix*) 40 Mg Tablet, 40 MG PO BID, TAB 09/12/16 Discontinued Scripts Metoprolol Tartrate* (Lopressor*) 25 Mg Tab, 25 MG PO BID for 28 Days, TAB Prov:CHANTEL COLLINS MD 03/20/16 Allergies Allergies: Coded Allergies: No Known Allergy (Unverified , 05/15/17) PMhx/Soc History of Surgery: Yes (HERNIA SX, RT LOWER EXT FOR CIRCULATION) Anesthesia Reaction: No Hx Neurological Disorder: No Hx Respiratory Disorders: Yes (ARF) Hx Cardiac Disorders: Yes (ASHD, PVD, CAD,HTN) Hx Psychiatric Problems: No Hx Miscellaneous Medical Probl: Yes (HX MRSA, RENAL FAILURE , GERD) Hx Alcohol Use: No Hx Substance Use: No Hx Tobacco Use: No Smoking Status: Never smoker FmHx Unable to obtain Physical Exam Vitals Vital Signs Date Time Temp Pulse Resp B/P Pulse Ox O2 Delivery O2 Flow Rate FiO2 05/15/17 22:24 97.7 86 16 138/107 100 Nasal Cannula 2.0 05/15/17 20:25 Nasal Cannula 2 05/15/17 19:44 81 14 147/110 100 Room Air 05/15/17 18:39 98.5 81 18 142/87 98 Physical Exam Const: No acute distress Head: Atraumatic Eyes: Normal Conjunctiva ENT: Normal External Ears, Nose and Mouth. Neck: Full range of motion..~ No meningismus. Resp: Decreased breath sounds bilaterally Cardio: Regular rate and rhythm, no murmurs Abd: Soft, non tender, non distended. Normal bowel sounds Skin: No petechiae or rashes Back: No midline or flank tenderness Ext: 1+ bilateral lower extremity edema Neur: Awake and alert Psych: Normal Mood and Affect Result Diagram: 05/15/17192905/15/171929 Results 24 hrs Laboratory Tests Test 05/15/17 19:30 White Blood Count 7.110^3/ul Red Blood Count 3.7210^6/ul Hemoglobin 10.5g/dl Hematocrit 34.6% Mean Corpuscular Volume 93.0fl Mean Corpuscular Hemoglobin 28.2pg Mean Corpuscular Hemoglobin Concent 30.3g/dl Red Cell Distribution Width 15.6% Platelet Count 09917^3/UL Mean Platelet Volume 9.6fl Neutrophils % 61.4% Lymphocytes % 23.8% Monocytes % 10.9% Eosinophils % 2.7% Basophils % 0.8% Nucleated Red Blood Cells % 0.3/100WBC Neutrophils # 4.410^3/ul Lymphocytes # 1.710^3/ul Monocytes # 0.810^3/ul Eosinophils # 0.210^3/ul Basophils # 0.110^3/ul Nucleated Red Blood Cells # 0.010^3/ul Prothrombin Time 16.4Sec Prothrombin Time Ratio 1.3 INR International Normalized Ratio 1.31 Activated Partial Thromboplast Time 31.4Sec Sodium Level 143mmol/L Potassium Level 4.9mmol/L Chloride Level 110mmol/L Carbon Dioxide Level 23mmol/L Anion Gap 15 Blood Urea Nitrogen 39mg/dl Creatinine 0.91mg/dl Glucose Level 118mg/dl Calcium Level 8.9mg/dl Troponin I 0.014ng/ml B-Type Natriuretic Peptide 21070RU/ML Current Medications Medications (Trade) Dose Ordered Sig/You Route PRN Reason Start Time Stop Time Status Last Admin Dose Admin Furosemide (Lasix) 40 mg ONCE STAT IV 05/15/17 18:43 05/15/17 18:44 DC 05/15/17 19:48 Ondansetron HCl (Zofran Inj) 4 mg ER BRIDGE PRN IV NAUSEA AND/OR VOMITING 05/15/17 19:30 05/16/17 19:29 Acetaminophen (Tylenol Tab) 650 mg ER BRIDGE PRN PO MILD PAIN/FEVER 05/15/17 19:30 05/16/17 19:29 Procedures/MDM EKG read by me: Rate/Rhythm: Regular rate and rhythm at a normal rate Intervals: Normal Impression: No evidence of ischemia or arrhythmia Chest x-ray shows cardiomegaly and pulmonary edema per radiology. Patient is a 87-year-old female presents with what appears to be acute congestive heart failure. I doubt pneumonia or pneumothorax or pulmonary embolism. The patient was given aspirin, nitroglycerin, and Lasix. The patient will be admitted to the care of Dr. Horton who will admit the patient to a telemetry bed. The patient has an elevated BNP as well. Departure Diagnosis: Primary Impression: Anemia Anemia type: unspecified type Qualified Code: D64.9 - Anemia, unspecified type Additional Impression: Acute CHF Congestive heart failure type: unspecified congestive heart failure type Qualified Code: I50.9 - Acute congestive heart failure, unspecified congestive heart failure type Condition: VELVET Turk MD May 15, 2017 22:34
[2017-05-15 22:38] VITALS: PULSE 85
[2017-05-15 23:00] VITALS: Ht 147.3 cm; Wt 40.0 kg
[2017-05-15 23:39] VITALS: BP 140/85; RESP 20
[2017-05-16] VITALS (11 sets, daily range): BP systolic 95–142; BP diastolic 55–87; PULSE 59–85; RESP 17–20
[2017-05-16] MEDS ORDERED: ONDANSETRON 4 MG INJ IV PRN
[2017-05-16] MEDS ORDERED: ZOLPIDEM 5 MG TAB PO PRN
[2017-05-16] MEDS ORDERED: DOCUSATE SODIUM 100 MG CAP PO PRN
[2017-05-16] MEDS ORDERED: NACL 0.9% 3 ML SYG IV SCH
[2017-05-16] MEDS ORDERED: HYDROCODONE/APAP (5/325) TAB PO PRN
[2017-05-16] MEDS: FUROSEMIDE 40 MG INJ IV SCH ×3 (00:25→18:31)
[2017-05-16] MEDS ORDERED: NITROGLYCERIN (SL) 0.4 MG TAB SL PRN (00:30)
[2017-05-16] MEDS ORDERED: ACETAMINOPHEN 325 MG TAB PO PRN ×2 (00:30)
[2017-05-16] MEDS ORDERED: BISACODYL 10 MG SUPP PR PRN (00:30)
[2017-05-16] MEDS: ALBUTEROL/IPRATROPIUM (NEB) 3 ML AMP INH SCH ×4 (01:55→19:37)
[2017-05-16] MEDS: LEVOTHYROXINE 50 MCG TAB PO SCH (06:39)
[2017-05-16] MEDS ORDERED: METOPROLOL 25 MG TAB PO SCH (09:00)
[2017-05-16] MEDS ORDERED: CALCIUM/VITAMIN D (500/200) TAB PO SCH (09:00)
[2017-05-16] MEDS: SILDENAFIL 20 MG TAB PO SCH ×3 (09:00→21:00)
[2017-05-16] MEDS: FERROUS SULFATE (EC) 325 MG TAB PO SCH (09:21)
[2017-05-16] MEDS: FAMOTIDINE 20 MG TAB PO SCH (09:21)
[2017-05-16] MEDS: BRIMONIDINE 0.2% 5 ML BTL BOTH EYES SCH ×2 (09:21→21:14)
[2017-05-16] MEDS: CLOPIDOGREL 75 MG TAB PO SCH (09:21)
[2017-05-16] MEDS: MAGNESIUM OXIDE 400 MG TAB PO SCH ×2 (09:21→21:15)
[2017-05-16] MEDS: CILOSTAZOL 100 MG TAB PO SCH (09:21)
[2017-05-16] MEDS: ASPIRIN (EC) 81 MG TAB PO SCH (09:21)
[2017-05-16] MEDS: AMIODARONE 200 MG TAB PO SCH (09:22)
[2017-05-16] MEDS: BENAZEPRIL 5 MG TAB PO SCH (09:22)
[2017-05-16] MEDS ORDERED: CALCIUM/VITAMIN D (500/200) TAB PO ONE (13:00)
--- NOTE | 2017-05-16 14:24 | HP ---
DATE OF ADMISSION: 05/15/2017 REASON FOR ADMISSION: Bilateral lower extremity swelling and shortness of breath. HISTORY OF PRESENT ILLNESS: Ms. 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 The patient was brought in by the ambulance. Patient's history is limited from the patient because of the mental status. History is currently obtained from the art. As per the [facility] notes, the patient was not on any Lasix. On arrival to ED, the vital signs were temperature 98.8, heart rate 83, respiratory rate 17, blood pressure 148/87, saturating 9 6% on 2 liters nasal cannula. Labs showed a BNP was 37,600. Chest x-ray showed chronic congestive heart failure worse. Interval enlargement of right greater than left pleural effusions, worsening r ight lower lobe consolidation, possibly atelectasis, pneumonia with parapneumonic effusion is diffic ult to exclude. PAST MEDICAL HISTORY: Coronary artery disease, congestive heart failure, hyperlipidemia, nonrheumat ic mitral valve insufficiency, hyperlipidemia, coronary artery disease status post angioplasty, acut e respiratory failure with hypoxia, bronchitis, peripheral vascular disease, GERD without esophagiti s, glaucoma, cardiomegaly, coronary angioplasty. ALLERGIES: NO KNOWN ALLERGIES. PAST SURGICAL HISTORY: The patient is status post pneumothorax, has a history of pleural effusion, history of coronary artery stenting. PAST MEDICAL HISTORY: Iatrogenic new right pneumothorax status post ultrasound-guided right thorace ntesis, right pleural effusion, CHF, coronary artery disease, atherosclerotic heart disease, MA, pne umonia, anemia, hypertension, dyslipidemia, cardiomegaly, glaucoma. History of left-sided pneumothorax, status post thoracentesis. MEDICATIONS AT THE LONG-TERM: 1. Amiodarone 100. 2. Aspirin 81. 3. Lipitor 20. 4. Benazepril 5. 5. Brimonidine. 6. Plavix 75. 7. Colace. 8. Cranberry capsule. 9. Iron tablet, 325 once daily. 10. Fleet enema. 11. Lasix 10 b.i.d. 12. Ipratropium. 13. Magnesium oxide 400 b.i.d. 14. Metoprolol 250 b.i.d. 15. Multivitamin. 16. Milk of magnesia. 17. Nitroglycerin. 18. Percocet. 19. Pletal 100 mg. 20. Pantoprazole 21. Sildenafil 20 mg 3 times a day. 22. Synthroid 50. 23. Tylenol. 24. Vitamin C. SOCIAL HISTORY: Noncontributory. REVIEW OF SYSTEMS: Unable to obtain. PHYSICAL EXAMINATION: VITAL SIGNS: Temperature 98.8, heart rate is 84, respirations 17, blood pressure 148/87. GENERAL: Patient opens his closed eyes, only responds to his name, tries to follow basic commands. NECK: Supple, JVD. HEART: Regular rate and rhythm. LUNGS: Decreased breath sounds on the right, . Also, on the left. ABDOMEN: Soft, nontender, nondistended, positive normoactive bowel sounds. EXTREMITIES: 1+ edema. DIAGNOSTIC DATA: Sodium 145, potassium 4.7, chloride 109, bicarb 26, BUN of 38, creatinine 0.8, alb umin 3.0. Troponin 0.05. BNP 37,600, white count 6.8, hemoglobin 10.7, platelet count 15.5. Chest x-ray shows chronic congestive heart failure worse. Interval enlargement of right greater natalee n left pleural effusions with worsening right lower lobe consolidation, probably atelectasis, pneumo giovanny, parapneumonic effusion is difficult to exclude. ASSESSMENT AND PLAN: This is an 87-year-old woman presenting with: 1. Congestive heart failure exacerbation with elevated BNP, shortness of breath, lower extremity ed dawn based on the chest x-ray. 2. Bilateral pleural effusions, left greater than right. 3. History of coronary artery disease status post angioplasty. 4. History of atrial fibrillation, on amiodarone. 5. Hypertension 6. Hyperlipidemia. 7. History of peripheral vascular disease. 8. History of gastroesophageal reflux disease. 9. History of insufficiency. 10. Anemia. 11. Cardiomegaly. 12. Glaucoma. PLAN: At this period of time the patient is admitted to [facility]. We will continue the patient on aspir in, Plavix, beta jade, MORIS and also aggressive diuresis with Lasix. We will also get an echo. Th e patient will most likely need thoracentesis. We will call cardiology and pulmonary consultation. Dictated By: SPEEDY ALANIS/JOVANY Conf#: [id number] DID#: [id number]
--- NOTE | 2017-05-16 14:24 | HP ---
DATE OF ADMISSION: 05/15/2017 REASON FOR ADMISSION: Bilateral lower extremity swelling and shortness of breath. HISTORY OF PRESENT ILLNESS: Ms. 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 The patient was brought in by the ambulance. Patient's history is limited from the patient because of the mental status. History is currently obtained from the art. As per the [facility] notes, the patient was not on any Lasix. On arrival to ED, the vital signs were temperature 98.8, heart rate 83, respiratory rate 17, blood pressure 148/87, saturating 9 6% on 2 liters nasal cannula. Labs showed a BNP was 37,600. Chest x-ray showed chronic congestive heart failure worse. Interval enlargement of right greater than left pleural effusions, worsening r ight lower lobe consolidation, possibly atelectasis, pneumonia with parapneumonic effusion is diffic ult to exclude. PAST MEDICAL HISTORY: Coronary artery disease, congestive heart failure, hyperlipidemia, nonrheumat ic mitral valve insufficiency, hyperlipidemia, coronary artery disease status post angioplasty, acut e respiratory failure with hypoxia, bronchitis, peripheral vascular disease, GERD without esophagiti s, glaucoma, cardiomegaly, coronary angioplasty. ALLERGIES: NO KNOWN ALLERGIES. PAST SURGICAL HISTORY: The patient is status post pneumothorax, has a history of pleural effusion, history of coronary artery stenting. PAST MEDICAL HISTORY: Iatrogenic new right pneumothorax status post ultrasound-guided right thorace ntesis, right pleural effusion, CHF, coronary artery disease, atherosclerotic heart disease, [place], pne umonia, anemia, hypertension, dyslipidemia, cardiomegaly, glaucoma. History of left-sided pneumothorax, status post thoracentesis. MEDICATIONS AT THE SKILLED NURSING: 1. Amiodarone 100. 2. Aspirin 81. 3. Lipitor 20. 4. Benazepril 5. 5. Brimonidine. 6. Plavix 75. 7. Colace. 8. Cranberry capsule. 9. Iron tablet, 325 once daily. 10. Fleet enema. 11. Lasix 10 b.i.d. 12. Ipratropium. 13. Magnesium oxide 400 b.i.d. 14. Metoprolol 250 b.i.d. 15. Multivitamin. 16. Milk of magnesia. 17. Nitroglycerin. 18. Percocet. 19. Pletal 100 mg. 20. Pantoprazole 21. Sildenafil 20 mg 3 times a day. 22. Synthroid 50. 23. Tylenol. 24. Vitamin C. SOCIAL HISTORY: Noncontributory. REVIEW OF SYSTEMS: Unable to obtain. PHYSICAL EXAMINATION: VITAL SIGNS: Temperature 98.8, heart rate is 84, respirations 17, blood pressure 148/87. GENERAL: Patient opens his closed eyes, only responds to his name, tries to follow basic commands. NECK: Supple, JVD. HEART: Regular rate and rhythm. LUNGS: Decreased breath sounds on the right, . Also, on the left. ABDOMEN: Soft, nontender, nondistended, positive normoactive bowel sounds. EXTREMITIES: 1+ edema. DIAGNOSTIC DATA: Sodium 145, potassium 4.7, chloride 109, bicarb 26, BUN of 38, creatinine 0.8, alb umin 3.0. Troponin 0.05. BNP 37,600, white count 6.8, hemoglobin 10.7, platelet count 15.5. Chest x-ray shows chronic congestive heart failure worse. Interval enlargement of right greater natalee n left pleural effusions with worsening right lower lobe consolidation, probably atelectasis, pneumo giovanny, parapneumonic effusion is difficult to exclude. ASSESSMENT AND PLAN: This is an 87-year-old woman presenting with: 1. Congestive heart failure exacerbation with elevated BNP, shortness of breath, lower extremity ed dawn based on the chest x-ray. 2. Bilateral pleural effusions, left greater than right. 3. History of coronary artery disease status post angioplasty. 4. History of atrial fibrillation, on amiodarone. 5. Hypertension 6. Hyperlipidemia. 7. History of peripheral vascular disease. 8. History of gastroesophageal reflux disease. 9. History of insufficiency. 10. Anemia. 11. Cardiomegaly. 12. Glaucoma. PLAN: At this period of time the patient is admitted to [facility]. We will continue the patient on aspir in, Plavix, beta jade, MORIS and also aggressive diuresis with Lasix. We will also get an echo. Th e patient will most likely need thoracentesis. We will call cardiology and pulmonary consultation. Dictated By: SPEEDY ALANIS/JOVANY Conf#: [id number] DID#: [id number]
--- NOTE | 2017-05-16 14:24 | HP ---
DATE OF ADMISSION: 05/15/2017 REASON FOR ADMISSION: Bilateral lower extremity swelling and shortness of breath. HISTORY OF PRESENT ILLNESS: Ms. 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 The patient was brought in by the ambulance. Patient's history is limited from the patient because of the mental status. History is currently obtained from the art. As per the [facility] notes, the patient was not on any Lasix. On arrival to ED, the vital signs were temperature 98.8, heart rate 83, respiratory rate 17, blood pressure 148/87, saturating 9 6% on 2 liters nasal cannula. Labs showed a BNP was 37,600. Chest x-ray showed chronic congestive heart failure worse. Interval enlargement of right greater than left pleural effusions, worsening r ight lower lobe consolidation, possibly atelectasis, pneumonia with parapneumonic effusion is diffic ult to exclude. PAST MEDICAL HISTORY: Coronary artery disease, congestive heart failure, hyperlipidemia, nonrheumat ic mitral valve insufficiency, hyperlipidemia, coronary artery disease status post angioplasty, acut e respiratory failure with hypoxia, bronchitis, peripheral vascular disease, GERD without esophagiti s, glaucoma, cardiomegaly, coronary angioplasty. ALLERGIES: NO KNOWN ALLERGIES. PAST SURGICAL HISTORY: The patient is status post pneumothorax, has a history of pleural effusion, history of coronary artery stenting. PAST MEDICAL HISTORY: Iatrogenic new right pneumothorax status post ultrasound-guided right thorace ntesis, right pleural effusion, CHF, coronary artery disease, atherosclerotic heart disease, [place], pne umonia, anemia, hypertension, dyslipidemia, cardiomegaly, glaucoma. History of left-sided pneumothorax, status post thoracentesis. MEDICATIONS AT THE [facility]ENTI[facility]: 1. Amiodarone 100. 2. Aspirin 81. 3. Lipitor 20. 4. Benazepril 5. 5. Brimonidine. 6. Plavix 75. 7. Colace. 8. Cranberry capsule. 9. Iron tablet, 325 once daily. 10. Fleet enema. 11. Lasix 10 b.i.d. 12. Ipratropium. 13. Magnesium oxide 400 b.i.d. 14. Metoprolol 250 b.i.d. 15. Multivitamin. 16. Milk of magnesia. 17. Nitroglycerin. 18. Percocet. 19. Pletal 100 mg. 20. Pantoprazole 21. Sildenafil 20 mg 3 times a day. 22. Synthroid 50. 23. Tylenol. 24. Vitamin C. SOCIAL HISTORY: Noncontributory. REVIEW OF SYSTEMS: Unable to obtain. PHYSICAL EXAMINATION: VITAL SIGNS: Temperature 98.8, heart rate is 84, respirations 17, blood pressure 148/87. GENERAL: Patient opens his closed eyes, only responds to his name, tries to follow basic commands. NECK: Supple, JVD. HEART: Regular rate and rhythm. LUNGS: Decreased breath sounds on the right, . Also, on the left. ABDOMEN: Soft, nontender, nondistended, positive normoactive bowel sounds. EXTREMITIES: 1+ edema. DIAGNOSTIC DATA: Sodium 145, potassium 4.7, chloride 109, bicarb 26, BUN of 38, creatinine 0.8, alb umin 3.0. Troponin 0.05. BNP 37,600, white count 6.8, hemoglobin 10.7, platelet count 15.5. Chest x-ray shows chronic congestive heart failure worse. Interval enlargement of right greater natalee n left pleural effusions with worsening right lower lobe consolidation, probably atelectasis, pneumo giovanny, parapneumonic effusion is difficult to exclude. ASSESSMENT AND PLAN: This is an 87-year-old woman presenting with: 1. Congestive heart failure exacerbation with elevated BNP, shortness of breath, lower extremity ed dawn based on the chest x-ray. 2. Bilateral pleural effusions, left greater than right. 3. History of coronary artery disease status post angioplasty. 4. History of atrial fibrillation, on amiodarone. 5. Hypertension 6. Hyperlipidemia. 7. History of peripheral vascular disease. 8. History of gastroesophageal reflux disease. 9. History of insufficiency. 10. Anemia. 11. Cardiomegaly. 12. Glaucoma. PLAN: At this period of time the patient is admitted to [facility]. We will continue the patient on aspir in, Plavix, beta jade, MORIS and also aggressive diuresis with Lasix. We will also get an echo. Th e patient will most likely need thoracentesis. We will call cardiology and pulmonary consultation. Dictated By: SPEEDY ALANIS/JOVANY Conf#: [id number] DID#: [id number]
--- NOTE | 2017-05-16 17:28 | RADRPT ---
Echocardiogram Report Patient Name: OSMAR PELAYO Gender: Female Date: 1930 Study Date: 16-May-2017 Mill Representative: SAY Location: [id number] Ref. Physician: SPEEDY YOST Quality: Good Procedures: Transthoracic echocardiogram with complete 2D, M-Mode, and doppler examination. Indications: Congestive Heart Failure. 2D/M Mode Doppler Measurement Value Normal Ranges Measurement Value Normal Ranges AoR Diam MM 3.0 cm MALINA Vmax 0.8 cm2 LA/Ao MM 1.6 MALINA VTI 0.6 cm2 LA Dimen MM 4.8 cm AV Mean Corby 2.4 m/sec RVDd 2D 3.9 0.9 - 2.6 cm AV Mean PG 25.1 mmHg LVIDd 2D 4.7 3.5 - 5.6 cm AV Peak Corby 5.7 m/sec LVIDs 2D 3.3 2.1 - 4.1 cm AV Peak PG 45.9 mmHg LVPWd 2D 1.1 0.6 - 1.1 cm AV VTI 75.2 cm EF 2D 55.0 50.0 - 65.0 % LVOT Mean Corby 0.6 m/sec LVOT Diam 2.0 cm LVOT Mean PG 1.6 mmHg LVOT Peak Corby 0.9 m/sec LVOT Peak PG 3.1 mmHg LVOT VTI 13.2 cm MV E Peak PG 1.5 mmHg MV A Peak PG 0.9 mmHg MV Decel Time 134 msec MR Peak PG 148.7 mmHg MR Peak Corby 6.0 m/sec TR Peak Corby 4.1 m/sec TR Peak PG 65.8 mmHg RVSP 81.0 mmHg RA Pressure 15.0 Findings Left Ventricle: Normal left ventricular systolic function. Normal left ventricular cavity size. Normal left ventricular wall thickness. Ejection fraction is visually estimated at 55 %. Abnormal Diastolic Function. These segments of the LV are hypokinetic anteroseptum mid segment. Right Ventricle: Mild right ventricular systolic dysfunction. Severe enlargement of right ventricle. Left Atrium: There is severe enlargement of left atrium. Right Atrium: There is mild enlargement of right atrium. Mitral Valve: Mild posterior mitral leaflet calcification. Mild mitral annular calcification. Severe mitral valve regurgitation. Aortic Valve: Moderate to severe aortic stenosis. Aortic valve Max velocity 3.39 m/sec. Max PG 45.90 mmHg. Mean PG 25.10 mmHg. Aortic valve area 0.60 cm2. Aortic cusps appear severely restricted. Trace to mild aortic valve regurgitation. Tricuspid Valve: Normal appearance of the tricuspid valve. Estimated peak PA systolic pressure 81 mmHg. There is severe tricuspid regurgitation. Pulmonic Valve: Pulmonic valve not well visualized. There is mild pulmonic regurgitation. Pericardium: Normal pericardium with no significant pericardial effusion. Bilateral pleural effusion seen. IVC: Dilated inferior vena cava with poor inspiratory collapse consistent with elevated right atrial pressures. Conclusions 1.Normal systolic function. Normal left ventricular cavity size. Normal left ventricular wall thickness. Ejection fraction is visually estimated at 55 %. Abnormal Diastolic Function. These segments of the LV are hypokinetic anteroseptum mid segment. 2.Mild right ventricular systolic dysfunction.. Severe enlargement of right ventricle. 3.There is severe enlargement of left atrium. 4.There is mild enlargement of right atrium. 5.Severe mitral valve regurgitation. 6.Moderate to severe aortic stenosis given significant mismatch between calculated aortic valve area and derived gradient across the aortic valve. Aortic valve Max velocity 3.39 m/sec. Max PG 45.90 mmHg. Mean PG 25.10 mmHg. Aortic valve area 0.60 cm2. Aortic cusps appear severely restricted. Trace to mild aortic valve regurgitation. 7.Normal appearance of the tricuspid valve. Estimated peak PA systolic pressure 81 mmHg. There is severe tricuspid regurgitation. 8.Pulmonic valve not well visualized. There is mild pulmonic regurgitation. 9.Normal pericardium with no significant pericardial effusion. Bilateral pleural effusion seen. Electronically Signed By: Toñito Zapata 16-May-2017 17:26:39 -0700 Patient Name: OSMAR PELAYO Study Date: 16-May-[id number]
[2017-05-16] MEDS: ATORVASTATIN 20 MG TAB PO SCH (21:15)
[2017-05-17] VITALS (12 sets, daily range): BP systolic 99–121; BP diastolic 53–67; PULSE 66–79; RESP 16–20
[2017-05-17] MEDS: ALBUTEROL/IPRATROPIUM (NEB) 3 ML AMP INH SCH ×4 (01:09→20:07)
[2017-05-17] MEDS: LEVOTHYROXINE 50 MCG TAB PO SCH (06:02)
[2017-05-17] MEDS: FUROSEMIDE 40 MG INJ IV SCH (06:03)
[2017-05-17] MEDS: CLOPIDOGREL 75 MG TAB PO SCH (09:32)
[2017-05-17] MEDS: FERROUS SULFATE (EC) 325 MG TAB PO SCH (09:32)
[2017-05-17] MEDS: MAGNESIUM OXIDE 400 MG TAB PO SCH ×2 (09:32→20:36)
[2017-05-17] MEDS: CALCIUM/VITAMIN D (500/200) TAB PO SCH (09:32)
[2017-05-17] MEDS: ASPIRIN (EC) 81 MG TAB PO SCH (09:32)
[2017-05-17] MEDS: FAMOTIDINE 20 MG TAB PO SCH (09:32)
[2017-05-17] MEDS: SILDENAFIL 20 MG TAB PO SCH ×3 (09:35→20:36)
[2017-05-17] MEDS: AMIODARONE 200 MG TAB PO SCH (09:36)
[2017-05-17] MEDS: BRIMONIDINE 0.2% 5 ML BTL BOTH EYES SCH ×2 (09:36→20:37)
[2017-05-17] MEDS: BENAZEPRIL 5 MG TAB PO SCH (09:37)
[2017-05-17] MEDS: CILOSTAZOL 100 MG TAB PO SCH (09:38)
--- NOTE | 2017-05-17 10:26 | PN ---
Date/Time of Note Date/Time of Note DATE: 05/17/17 TIME: : Assessment/Plan VTE Prophylaxis VTE Prophylaxis Intervention: contraindicated Lines/C[facility]ters [facility] Urinary Cath still in place: Yes Reason Cath still needed: urinary retention Assessment/Plan Chief Complaint/Hosp Course This is an 87-year-old woman presenting with: 1. Congestive heart failure exacerbation with elevated BNP, shortness of breath , lower extremity edema based on the chest x-ray. ECHO+ Mod to severe with Pulmonary HTN 2. Bilateral pleural effusions, left greater than right. 3. History of coronary artery disease status post angioplasty. 4. History of atrial fibrillation, on amiodarone. 5. Hypertension 6. Hyperlipidemia. 7. History of peripheral vascular disease. 8. History of gastroesophageal reflux disease. 9. History of insufficiency. 10. Anemia. 11. Cardiomegaly. 12. Glaucoma. Recs - Thoracentesis today - Repeat Chest Xray tmw - c.w lasix 40 - C/W ASA/ Plavix/ Coreg/ Benazepril, will uptitrate based on BP - Cards consult - Pulm consult Problems: Subjective 24 Hr Interval Summary Free Text/Dictation Scheduled for thoracentesis today On 3 L Oxygen Exam/Review of Systems Vital Signs Vitals Vital Signs Date Time Temp Pulse Resp B/P Pulse Ox O2 Delivery O2 Flow Rate FiO2 05/17/17 08:35 78 05/17/17 08:12 18 Nasal Cannula 2.0 28 05/17/17 07:24 98.8 121/67 98 Intake and Output 05/16/17 05/16/17 05/17/17 15:00 23:00 07:00 Intake Total 300 ml 150 ml Output Total 600 ml 700 ml Balance -300 ml -550 ml Exam GENERAL: Patient opens his closed eyes, only responds to his name, tries to follow basic commands. Lens implant NECK: Supple, JVD. HEART: FAMILIA+ LUNGS: Decreased breath sounds on the right, . Also, on the left. ABDOMEN: Soft, nontender, nondistended, positive normoactive bowel sounds. EXTREMITIES: 1+ edema. Results Result Diagram: 05/17/1718 05/17/1718 Results 24 hrs Laboratory Tests Test 05/17/17 07:18 White Blood Count 6.8 Red Blood Count 3.73 L Hemoglobin 10.5 L Hematocrit 34.7 L Mean Corpuscular Volume 93.0 Mean Corpuscular Hemoglobin 28.2 L Mean Corpuscular Hemoglobin Concent 30.3 L Red Cell Distribution Width 15.3 H Platelet Count 285 Mean Platelet Volume 9.9 Neutrophils % 69.0 Lymphocytes % 16.2 Monocytes % 10.2 Eosinophils % 3.1 Basophils % 0.9 Nucleated Red Blood Cells % 0.0 Neutrophils # 4.7 Lymphocytes # 1.1 Monocytes # 0.7 Eosinophils # 0.2 Basophils # 0.1 Nucleated Red Blood Cells # 0.0 Sodium Level 146 H Potassium Level 3.7 Chloride Level 101 Carbon Dioxide Level 37 #H Anion Gap 12 Blood Urea Nitrogen 35 H Creatinine 0.92 Glucose Level 105 Calcium Level 8.9 Phosphorus Level 4.0 Magnesium Level 1.7 Total Bilirubin 0.4 Direct Bilirubin 0.00 Indirect Bilirubin 0.4 Aspartate Amino Transf (AST/SGOT) 17 Alanine Aminotransferase (ALT/SGPT) 23 Alkaline Phosphatase 89 Total Protein 6.3 Albumin 2.9 L Globulin 3.40 H Albumin/Globulin Ratio 0.85 Medications Medications Current Medications Ondansetron HCl (Zofran Inj) 4 mg Q6H PRN IV NAUSEA AND/OR VOMITING; Start at 00:00 Acetaminophen (Tylenol Tab) 650 mg Q6H PRN PO PAIN LEVEL 1-3 OR FEVER; Start 05/16/17 at 00:00 Acetaminophen/ Hydrocodone Bitart ([place] (5/325)) 1 tab Q6H PRN PO MODERATE PAIN LEVEL 4-6; Start 05/16/17 at 00:00 Docusate Sodium (Colace) 100 mg Q12H PRN PO CONSTIPATION; Start 05/16/17 at 00 :00 Zolpidem Tartrate (Ambien) 5 mg QHS PRN PO SLEEP; Start 05/16/17 at 00:00 Famotidine (Pepcid) 20 mg DAILY PO Last administered on 05/17/17 09:32; Admin Dose 20 MG; Start 05/16/17 at 09:00 Acetaminophen (Tylenol Tab) 650 mg Q4H PRN PO NON-CARDIAC PAIN LEVEL 1-3; Start 05/16/17 at 00:30 Amiodarone HCl (Cordarone) 100 mg DAILY PO Last administered on 05/17/17 09: 36; Admin Dose 100 MG; Start 05/16/17 at 09:00 Aspirin (Halfprin) 81 mg DAILY PO Last administered on 05/17/17 09:32; Admin Dose 81 MG; Start 05/16/17 at 09:00 Atorvastatin Calcium (Lipitor) 20 mg HS PO Last administered on 05/16/17 21: 15; Admin Dose 20 MG; Start 05/16/17 at 21:00 Benazepril HCl (Lotensin) 5 mg DAILY PO Last administered on 05/17/17 09:37; Admin Dose 5 MG; Start 05/16/17 at 09:00 Bisacodyl (Dulcolax Supp) 10 mg DAILY PRN SC CONSTIPATION; Start 05/16/17 at 00:30 Brimonidine Tartrate (Alphagan 0.2%) 1 drop BID BOTH EYES Last administered on 05/17/17 09:36; Admin Dose 1 DROP; Start 05/16/17 at 09:00 Cilostazol (Pletal) 100 mg DAILY PO Last administered on 05/17/17 09:38; Admin Dose 100 MG; Start 05/16/17 at 09:00 Clopidogrel Bisulfate (plaVIX) 75 mg DAILY PO Last administered on 05/17/17 09:32; Admin Dose 75 MG; Start 05/16/17 at 09:00 Ferrous Sulfate (Ferrous Sulfate (Ec)) 325 mg DAILY PO Last administered on 09:32; Admin Dose 325 MG; Start 05/16/17 at 09:00 Magnesium Oxide (Mag-Ox 400) 400 mg BID PO Last administered on 05/17/17 09: 32; Admin Dose 400 MG; Start 05/16/17 at 09:00 Nitroglycerin (Nitroglycerin (Sl Tab) 0.4 Mg) 1 tab Q5M PRN SL ANGINA; Start 05/16/17 at 00:30 Sildenafil Citrate (Revatio) 20 mg TID PO Last administered on 05/17/17 09:35 ; Admin Dose 20 MG; Start 05/16/17 at 09:00 Carvedilol (Coreg) 3.125 mg BID PO Last administered on 05/17/17 09:37; Admin Dose 3.125 MG; Start 05/16/17 at 21:00 Calcium/Vitamin D (Oyster Shell/ Vit-D (500/200)) 1 tab DAILY PO Last administered on 05/17/17t 09:32; Admin Dose 1 TAB; Start 05/17/17 at 09:00 SPEEDY YOST MD May 17, 2017 10:26
--- NOTE | 2017-05-17 12:35 | CONS ---
Date/Time of Note Date/Time of Note DATE: 05/17/17 TIME: 12:30 Assessment/Plan Assessment/Plan Additional Assessment/Plan Chest x-ray was reviewed from of this month which is showing massive cardiomegaly. 2D echocardiogram is showing preserved LV function with evidence of severe pulmonary hypertension and right ventricular and left atrial enlargement. There is severe aortic stenosis. As well as moderate mitral regurgitation. Assessment and recommendations; 1. Patient admitted with shortness of breath due to severe underlying pulmonary hypertension with evidence of right heart failure. 2. Condition is compounded by underlying severe aortic stenosis. 3. Multiple other stable comorbidities as outlined above. Continue current supportive care. Continue gentle diuresis. Prevent intravascular volume depletion due to underlying severe pulmonary hypertension as well as aortic stenosis. Consultation Date/Type/Reason Admit Date/Time May 15, 2017 at 22:28 Date of Consultation: May 17, 2017 Type of Consultation: Pulmonary Reason for Consultation Pulmonary consultation requested for evaluation of shortness of breath. History of presenting illness; patient is a 87-year-old lady who was admitted on the of this month with complaints of shortness of breath. Patient resides in a [facility] facility. Patient is feeling better since admission. Still complains of dyspnea on minimal exertion. But denies any chest pain, wheezing, sputum production. Past medical history; 1. Patient with a history of severe pulmonary hypertension. 2. History of systemic hypertension. 3. Coronary artery disease. 4. Aortic stenosis. 5. Mitral regurgitation. 6. Hypothyroidism. 7. Glaucoma. 8. History of left pneumothorax. 9. History of left thoracentesis. Medications; reviewed. Allergies; none. Social history; patient never smoked. Family history; patient is single and resides in a [facility]. Review of systems; denies any headache, visual changes. Any chest pain. Shortness of breath has improved. Denies any abdominal pain. General exam; elderly woman, awake and alert. Currently in no distress. Past Surgical History Past Surgical Hx: no surgical history Social History Smoking Status: Unknown if ever smoked Exam/Review of Systems Vital Signs Vitals Vital Signs Date Time Temp Pulse Resp B/P Pulse Ox O2 Delivery O2 Flow Rate FiO2 05/17/17 12:27 74 05/17/17 11:23 98.5 17 106/59 95 05/17/17 08:12 Nasal Cannula 2.0 28 Intake and Output 10/05/16/17 05/17/17 15:00 23:00 07:00 Intake Total 300 ml 150 ml Output Total 600 ml 700 ml Balance -300 ml -550 ml Exam HEENT exam; supple neck, positive JVD. No lymphadenopathy. Midline trachea. No thyromegaly. Patient is edentulous. Has bilateral intraocular lens implants. Chest exam; diminished but clear breath sounds. S1-S2 audible, there is a loud aortic stenosis murmur grade 2/6. Abdomen exam; soft, nontender. No organomegaly. Bowel sounds audible. Extremity exam; no peripheral edema. RISK MANAGEMENT DIRECTOR exam; no focal motor deficit. Results Result Diagram: 05/17/1771705/17/1718 Results 24 hrs Laboratory Tests Test 05/17/17 07:18 White Blood Count 6.8 Red Blood Count 3.73 L Hemoglobin 10.5 L Hematocrit 34.7 L Mean Corpuscular Volume 93.0 Mean Corpuscular Hemoglobin 28.2 L Mean Corpuscular Hemoglobin Concent 30.3 L Red Cell Distribution Width 15.3 H Platelet Count 285 Mean Platelet Volume 9.9 Neutrophils % 69.0 Lymphocytes % 16.2 Monocytes % 10.2 Eosinophils % 3.1 Basophils % 0.9 Nucleated Red Blood Cells % 0.0 Neutrophils # 4.7 Lymphocytes # 1.1 Monocytes # 0.7 Eosinophils # 0.2 Basophils # 0.1 Nucleated Red Blood Cells # 0.0 Sodium Level 146 H Potassium Level 3.7 Chloride Level 101 Carbon Dioxide Level 37 #H Anion Gap 12 Blood Urea Nitrogen 35 H Creatinine 0.92 Glucose Level 105 Calcium Level 8.9 Phosphorus Level 4.0 Magnesium Level 1.7 Total Bilirubin 0.4 Direct Bilirubin 0.00 Indirect Bilirubin 0.4 Aspartate Amino Transf (AST/SGOT) 17 Alanine Aminotransferase (ALT/SGPT) 23 Alkaline Phosphatase 89 Total Protein 6.3 Albumin 2.9 L Globulin 3.40 H Albumin/Globulin Ratio 0.85 Medications Medications Current Medications Ondansetron HCl (Zofran Inj) 4 mg Q6H PRN IV NAUSEA AND/OR VOMITING; Start at 00:00 Acetaminophen (Tylenol Tab) 650 mg Q6H PRN PO PAIN LEVEL 1-3 OR FEVER; Start 05/16/17 at 00:00 Acetaminophen/ Hydrocodone Bitart ([place] (5/325)) 1 tab Q6H PRN PO MODERATE PAIN LEVEL 4-6; Start 05/16/17 at 00:00 Docusate Sodium (Colace) 100 mg Q12H PRN PO CONSTIPATION; Start 05/16/17 at 00 :00 Zolpidem Tartrate (Ambien) 5 mg QHS PRN PO SLEEP; Start 05/16/17 at 00:00 Famotidine (Pepcid) 20 mg DAILY PO Last administered on 05/17/17 09:32; Admin Dose 20 MG; Start 05/16/17 at 09:00 Acetaminophen (Tylenol Tab) 650 mg Q4H PRN PO NON-CARDIAC PAIN LEVEL 1-3; Start 05/16/17 at 00:30 Amiodarone HCl (Cordarone) 100 mg DAILY PO Last administered on 05/17/17 09: 36; Admin Dose 100 MG; Start 05/16/17 at 09:00 Aspirin (Halfprin) 81 mg DAILY PO Last administered on 05/17/17 09:32; Admin Dose 81 MG; Start 05/16/17 at 09:00 Atorvastatin Calcium (Lipitor) 20 mg HS PO Last administered on 05/16/17 21: 15; Admin Dose 20 MG; Start 05/16/17 at 21:00 Benazepril HCl (Lotensin) 5 mg DAILY PO Last administered on 05/17/17 09:37; Admin Dose 5 MG; Start 05/16/17 at 09:00 Bisacodyl (Dulcolax Supp) 10 mg DAILY PRN [place] CONSTIPATION; Start 05/16/17 at 00:30 Brimonidine Tartrate (Alphagan 0.2%) 1 drop BID BOTH EYES Last administered on 05/17/17 09:36; Admin Dose 1 DROP; Start 05/16/17 at 09:00 Cilostazol (Pletal) 100 mg DAILY PO Last administered on 05/17/17 09:38; Admin Dose 100 MG; Start 05/16/17 at 09:00 Clopidogrel Bisulfate (plaVIX) 75 mg DAILY PO Last administered on 05/17/17 09:32; Admin Dose 75 MG; Start 05/16/17 at 09:00 Ferrous Sulfate (Ferrous Sulfate (Ec)) 325 mg DAILY PO Last administered on 09:32; Admin Dose 325 MG; Start 05/16/17 at 09:00 Magnesium Oxide (Mag-Ox 400) 400 mg BID PO Last administered on 05/17/17 09: 32; Admin Dose 400 MG; Start 05/16/17 at 09:00 Nitroglycerin (Nitroglycerin (Sl Tab) 0.4 Mg) 1 tab Q5M PRN SL ANGINA; Start 05/16/17 at 00:30 Sildenafil Citrate (Revatio) 20 mg TID PO Last administered on 05/17/17 09:35 ; Admin Dose 20 MG; Start 05/16/17 at 09:00 Carvedilol (Coreg) 3.125 mg BID PO Last administered on 05/17/17 09:37; Admin Dose 3.125 MG; Start 05/16/17 at 21:00 Calcium/Vitamin D (Oyster Shell/ Vit-D (500/200)) 1 tab DAILY PO Last administered on 05/17/17 09:32; Admin Dose 1 TAB; Start 05/17/17 at 09:00 WAN RICK May 17, 2017 12:34
[2017-05-17] MEDS ORDERED: LIDOCAINE 1% (MPF) 5 ML VIAL ONE (13:49)
--- NOTE | 2017-05-17 13:49 | RADRPT ---
PROCEDURE: US guided right thoracentesis. CLINICAL INDICATION: Shortness of breath. Right pleural effusion. TECHNIQUE: Prior to the procedure, informed consent was obtained. The risks, benefits, and alternatives were e xplained to the patient or the patient's family, including but not limited to bleeding, infection, p ain, visceral or vascular damage, shock, pneumothorax, chest tube placement, air embolism, and . The patient or the patient's family understood the risks and the alternatives and wished to proce ed with the study. Informed written consent was obtained. A procedural pause was performed. The patient's name, date of , and procedure to be performed were verified. Ultrasound of the right hemithorax was performed in the axial and sagittal planes. A right pleural e ffusion is noted. Utilizing ultrasound guidance, optimal location for entry to the pleural cavity wa s ascertained. The overlying skin was prepped and draped in the usual sterile fashion. Approximate ly 10 ml of 1% Xylocaine was injected locally for pain control. Using ultrasound guidance, a 5-Fren Yueh catheter was introduced into the right pleural space without difficulty. Fluid was aspirated . COMPARISON: Chest x-ray dated 05/15/2017. FINDINGS: Initial ultrasound demonstrates fluid in the right pleural space. Approximately 0.810 liters of ser ous fluid was aspirated and sent to the laboratory. IMPRESSION: 1. Satisfactory ultrasound-guided right thoracentesis. RPTAT: QQ .Manjit Lobato MD, Date Time Electronically viewed and signed by .Manjit Lobato MD, on 05/17/2017 13:48 .R/
--- NOTE | 2017-05-17 13:57 | RADRPT ---
PROCEDURE: XR Chest. CLINICAL INDICATION: Shortness of breath. Post right thoracentesis. TECHNIQUE: Single frontal view. COMPARISON: 05/15/2017. FINDINGS: There is markedly improved aeration of the right lung. There is mild atelectasis at the lung bases. The heart is enlarged. There is no right pleural effusion. There is a small left pleural effusion. There is no pneumothorax. IMPRESSION: 1. No pneumothorax following right thoracentesis. 2. Cardiomegaly. 3. Marked improved aeration of the right lung. RPTAT: QQ .Manjit Lobato MD, MD Date Time Electronically viewed and signed by .Manjit Lobato MD, MD on 05/17/2017 13:56 .R/
[2017-05-17] MEDS: MUPIROCIN 2% 22 GM OINT TOP SCH ×2 (16:29→20:38)
[2017-05-17] MEDS: ATORVASTATIN 20 MG TAB PO SCH (20:36)
[2017-05-18] VITALS (11 sets, daily range): BP systolic 90–131; BP diastolic 52–75; PULSE 72–84; RESP 18–19
--- NOTE | 2017-05-18 01:27 | CONS ---
DATE OF ADMISSION: 05/15/2017 DATE OF CONSULTATION: 05/17/2017 REASON FOR CONSULTATION: Congestive heart failure. REQUESTING PHYSICIAN: Dr. Horton HISTORY OF PRESENT ILLNESS: Ms. Ndiaye is an 87-year-old female known to myself from prior [facility] with a history of mitral and tricuspid valve severe regurgitation, PTCA and stent placement to right coronary artery 03/22/2017, aortic stenosis, hypertension, dyslipidemia, gastroesophageal r eflux disease, peripheral arterial disease, chronic kidney disease who presented with shortness of b reath and worsening lower extremity edema. Upon arrival in the emergency department, temperature 98 .5, blood pressure 142/87, pulse 81, respiratory rate 18, saturating 98%. The patient's labs reveal ed white count 7.1, hemoglobin 10.5, platelet count 292. Sodium of 143, potassium 4.9, creatinine 0 .91, BUN 39. Troponin negative. BNP of 37,600. INR 1.31. White blood cell count 7.1, hemoglobin 10.5, platelet count 292. The patient underwent a chest x-ray revealing chronic congestive heart fa ilure changes, interval enlargement of right greater than left pleural effusions with worsening righ t lower lobe consolidation. Patient's electrocardiogram revealed normal sinus rhythm, rate of 82, n ormal axis, normal intervals, low voltage in the limb leads. The patient subsequently has been admi tted to the floor where since admitted to the floor, the patient has been placed on Lasix diuresis, baseline carvedilol, amiodarone, benazepril, Plavix and aspirin as well as receiving sildenafil. Th e patient has additionally undergone thoracentesis on the right side -0.8 liters. The patient under went a 2D echo by myself revealing an EF of approximately 55% with severe mitral regurgitation, mode rate to severe tricuspid regurgitation, and moderate to severe aortic stenosis. PAST MEDICAL HISTORY: As above in HPI. MEDICATIONS CURRENTLY IN HOSPITAL: 1. Lasix 20 mg IV daily. 2. Lipitor 20 mg at bedtime. 3. Carvedilol 3.125 mg p.o. b.i.d. 4. Pepcid 20 mg daily. 5. Amiodarone 100 mg daily. 6. Aspirin 81 mg daily. 7. Benazepril 5 mg daily. 8. Pletal 100 mg daily. 9. Plavix 75 mg daily. 10. Ferrous sulfate 325 mg daily. 11. Magnesium oxide. 12. Sildenafil 20 mg p.o. t.i.d. 13. Synthroid 50 mcg daily. 14. Tylenol p.r.n. 15. Dulcolax p.r.n. 16. Zofran p.r.n. 17. ____ p.r.n. ALLERGIES: NO KNOWN DRUG ALLERGIES. SOCIAL HISTORY: No tobacco, ETOH or illicit drug use. FAMILY HISTORY: No history of sudden cardiac or early CAD. REVIEW OF SYSTEMS: As above in HPI. CONSTITUTIONAL: No fevers, chills. PULMONARY: Shortness of breath. CARDIOVASCULAR: Congestive heart failure and mitral and tricuspid insufficiency. GASTROINTESTINAL: No vomiting. GENITOURINARY: No hematuria. MUSCULOSKELETAL: Degenerative joint disease. PSYCHIATRIC: The patient denies depression. NEUROLOGIC: No documented history of CVA. PHYSICAL EXAMINATION VITAL SIGNS: Temperature of 98.5, blood pressure 113/66, pulse 74, respirations 17, saturating 98%. GENERAL: The patient is alert, awake, in no acute distress. NECK: JVP approximately 9 cm of water. CHEST: Fair movement throughout with decreased breath sounds at bases bilaterally. At this point, left greater than right. HEART: Regular rate and rhythm. Normal S1, increased S2, I/ systolic murmur, nondisplaced PMI. ABDOMEN: Positive bowel sounds, soft. EXTREMITIES: Trace edema, 1+ pulses bilaterally posterior tibial. LABORATORY DATA: As above in HPI, with most recent from today, sodium 142, potassium 3.7, creatinin e 0.92, BUN 35. Troponin negative x3. Albumin 2.9. White blood cell count 6.8, hemoglobin 10.5, p latelet count 285. IMAGING STUDIES: As above in HPI with a chest x-ray from today revealing no pneumothorax following right thoracentesis, cardiomegaly, marked improvement in aeration of the right lung, small left pleu ral effusion. ELECTROCARDIOGRAM: As above in HPI. No further electrocardiograms for my review at this time. IMPRESSION: 1. Congestive heart failure exacerbation, diastolic, acute on chronic. 2. Mitral regurgitation, severe. 3. Tricuspid regurgitation, moderate to severe. 4. Aortic stenosis, moderate to severe followed by echo, visually looks more moderate. The mitral valve area was severe. 5. History of percutaneous transluminal coronary angioplasty and stent placement to right coronary artery most recently 09/2016. 6. Pleural effusion status post thoracentesis. 7. Hypernatremia. 8. Anemia. RECOMMENDATIONS: 1. At this time, would maintain patient on gentle Lasix diuresis, following strict I's and O's to g rade diuresis closely. 2. Continue the patient's benazepril for afterload reduction and carvedilol. Control heart rate an d blood pressure. Additionally continue the amiodarone in an attempt to maintain the patient in sin us rhythm and continue the patient's aspirin and Plavix for stent patency. 3. Continue the patient's current statin therapy and adjust it according to fasting lipid panel to be checked. 4. Continue the patient's Synthroid. Check a TSH, adjust as necessary and follow the patient's vol ume status and creatinine closely. Thank you for allowing me to take part in the care of this patient. I will continue to follow very closely with you with further recommendations to be made as the patient progresses through her [facility] course. Dictated By: HANNAH MATOS/JOVANY Conf#: [id number] DID#: [id number] CC: SPEEDY HORTON;*EndCC*
[2017-05-18] MEDS: ALBUTEROL/IPRATROPIUM (NEB) 3 ML AMP INH SCH ×4 (01:44→19:32)
[2017-05-18] MEDS: LEVOTHYROXINE 50 MCG TAB PO SCH (06:29)
[2017-05-18] MEDS ORDERED: FUROSEMIDE 40 MG INJ IV SCH (09:00)
[2017-05-18] MEDS: MUPIROCIN 2% 22 GM OINT TOP SCH ×2 (09:16→20:43)
[2017-05-18] MEDS: FERROUS SULFATE (EC) 325 MG TAB PO SCH (09:18)
[2017-05-18] MEDS: CALCIUM/VITAMIN D (500/200) TAB PO SCH (09:18)
[2017-05-18] MEDS: CLOPIDOGREL 75 MG TAB PO SCH (09:18)
[2017-05-18] MEDS: FAMOTIDINE 20 MG TAB PO SCH (09:19)
[2017-05-18] MEDS: MAGNESIUM OXIDE 400 MG TAB PO SCH ×2 (09:19→20:43)
[2017-05-18] MEDS: ASPIRIN (EC) 81 MG TAB PO SCH (09:19)
[2017-05-18] MEDS: CILOSTAZOL 100 MG TAB PO SCH (09:19)
[2017-05-18] MEDS: AMIODARONE 200 MG TAB PO SCH (09:19)
[2017-05-18] MEDS: BRIMONIDINE 0.2% 5 ML BTL BOTH EYES SCH ×2 (09:20→20:42)
[2017-05-18] MEDS: BENAZEPRIL 5 MG TAB PO SCH (09:20)
[2017-05-18] MEDS: SILDENAFIL 20 MG TAB PO SCH ×3 (09:29→20:44)
--- NOTE | 2017-05-18 11:15 | CONS ---
Date/Time of Note Date/Time of Note DATE: 05/18/17 TIME: 11:14 Consult Date/Type/Reason Admit Date/Time May 15, 2017 at 22:28 Initial Consult Date 05/17/17 Type of Consultation: Pulmonary Subjective Patient improved following thoracentesis. Less dyspnea this morning. Appears comfortable at rest. Objective Vital Signs Date Time Temp Pulse Resp B/P Pulse Ox O2 Delivery O2 Flow Rate FiO2 05/18/17 09:03 2.0 28 05/18/17 09:03 76 20 Nasal Cannula 05/18/17 07:57 98.5 131/75 100 Intake and Output 05/17/17 05/17/17 05/18/17 15:00 23:00 07:00 Intake Total 600 ml 450 ml Output Total 650 ml 550 ml Balance -50 ml -100 ml Exam GENERAL: Elderly appearing lady comfortable at rest VITAL SIGNS: per chart NECK: Supple. No JVD or lymphadenopathy. CARDIAC EXAM: S1, S2. 2 out of 6 systolic ejection murmur. CHEST: Diminished air entry both lung bases. ABDOMEN: Soft, nontender. No guarding or rebound. EXTREMITIES: No cyanosis, clubbing or edema. NEUROLOGIC: Generalized weakness. No focal deficits. Results/Medications Result Diagram: 05/17/1771705/17/17717 Medications Current Medications Ondansetron HCl (Zofran Inj) 4 mg Q6H PRN IV NAUSEA AND/OR VOMITING; Start at 00:00 Acetaminophen (Tylenol Tab) 650 mg Q6H PRN PO PAIN LEVEL 1-3 OR FEVER Last administered on 05/17/17 21:44; Admin Dose 650 MG; Start 05/16/17 at 00:00 Acetaminophen/ Hydrocodone Bitart ([place] (5/325)) 1 tab Q6H PRN PO MODERATE PAIN LEVEL 4-6; Start 05/16/17 at 00:00 Docusate Sodium (Colace) 100 mg Q12H PRN PO CONSTIPATION; Start 05/16/17 at 00 :00 Zolpidem Tartrate (Ambien) 5 mg QHS PRN PO SLEEP; Start 05/16/17 at 00:00 Famotidine (Pepcid) 20 mg DAILY PO Last administered on 05/18/17 09:19; Admin Dose 20 MG; Start 05/16/17 at 09:00 Acetaminophen (Tylenol Tab) 650 mg Q4H PRN PO NON-CARDIAC PAIN LEVEL 1-3; Start 05/16/17 at 00:30 Amiodarone HCl (Cordarone) 100 mg DAILY PO Last administered on 05/18/17 09: 19; Admin Dose 100 MG; Start 05/16/17 at 09:00 Aspirin (Halfprin) 81 mg DAILY PO Last administered on 05/18/17 09:19; Admin Dose 81 MG; Start 05/16/17 at 09:00 Atorvastatin Calcium (Lipitor) 20 mg HS PO Last administered on 05/17/17 20: 36; Admin Dose 20 MG; Start 05/16/17 at 21:00 Benazepril HCl (Lotensin) 5 mg DAILY PO Last administered on 05/18/17 09:20; Admin Dose 5 MG; Start 05/16/17 at 09:00 Bisacodyl (Dulcolax Supp) 10 mg DAILY PRN [place] CONSTIPATION; Start 05/16/17 at 00:30 Brimonidine Tartrate (Alphagan 0.2%) 1 drop BID BOTH EYES Last administered on 05/18/17 09:20; Admin Dose 1 DROP; Start 05/16/17 at 09:00 Cilostazol (Pletal) 100 mg DAILY PO Last administered on 05/18/17 09:19; Admin Dose 100 MG; Start 05/16/17 at 09:00 Clopidogrel Bisulfate (plaVIX) 75 mg DAILY PO Last administered on 05/18/17 09:18; Admin Dose 75 MG; Start 05/16/17 at 09:00 Ferrous Sulfate (Ferrous Sulfate (Ec)) 325 mg DAILY PO Last administered on 09:18; Admin Dose 325 MG; Start 05/16/17 at 09:00 Magnesium Oxide (Mag-Ox 400) 400 mg BID PO Last administered on 05/18/17 09: 19; Admin Dose 400 MG; Start 05/16/17 at 09:00 Nitroglycerin (Nitroglycerin (Sl Tab) 0.4 Mg) 1 tab Q5M PRN SL ANGINA; Start 05/16/17 at 00:30 Sildenafil Citrate (Revatio) 20 mg TID PO Last administered on 05/18/17 09:29 ; Admin Dose 20 MG; Start 05/16/17 at 09:00 Carvedilol (Coreg) 3.125 mg BID PO Last administered on 05/18/17 09:20; Admin Dose 3.125 MG; Start 05/16/17 at 21:00 Calcium/Vitamin D (Oyster Shell/ Vit-D (500/200)) 1 tab DAILY PO Last administered on 05/18/17 09:18; Admin Dose 1 TAB; Start 05/17/17 at 09:00 Mupirocin (Bactroban) 1 applic BID TOP Last administered on 05/18/17 09:16; Admin Dose 1 APPLIC; Start 05/17/17 at 15:00 Furosemide (Lasix) 40 mg DAILY IV Last administered on 05/18/17 09:18; Admin Dose 40 MG; Start 05/18/17 at 09:00 Assessment/Plan Chief Complaint/Hosp Course Assessment 1. Hypoxemic respiratory failure secondary to pleural effusion and congestive cardiac failure 2. Pleural effusion likely secondary to heart failure status post thoracentesis 3. Severe aortic stenosis 4. Pulmonary hypertension Plan 1. Continue gentle diuresis 2. Aspiration precautions 3. Will likely require group home facility 4. Repeat chest x-ray in a.m. Problems: PONCHO DE SANTIAGO MD, [facility] May 18, 2017 11:15
--- NOTE | 2017-05-18 13:52 | PN ---
Date/Time of Note Date/Time of Note DATE: 05/18/17 TIME: 13:52 Assessment/Plan VTE Prophylaxis VTE Prophylaxis Intervention: SCD's Lines/Catheters IV Catheter Type (from Nrs): Saline Lock Urinary Cath still in place: Yes Reason Cath still needed: urinary retention Assessment/Plan Chief Complaint/Hosp Course 1. Congestive heart failure exacerbation with elevated BNP, shortness of breath , lower extremity edema based on the chest x-ray. ECHO+ Mod to severe with Pulmonary HTN 2. Bilateral pleural effusions, left greater than right. 3. History of coronary artery disease status post angioplasty. 4. History of atrial fibrillation, on amiodarone. 5. Hypertension 6. Hyperlipidemia. 7. History of peripheral vascular disease. 8. History of gastroesophageal reflux disease. 9. History of insufficiency. 10. Anemia. 11. Cardiomegaly. 12. Glaucoma. Problems: Assessment/Plan 1. ccontinue current regime Subjective 24 Hr Interval Summary Constitutional: improved, no complaints Exam/Review of Systems Vital Signs Vitals Vital Signs Date Time Temp Pulse Resp B/P Pulse Ox O2 Delivery O2 Flow Rate FiO2 05/18/17 13:43 2.0 28 05/18/17 13:43 72 20 Nasal Cannula 05/18/17 11:45 98.1 104/59 95 Intake and Output 05/17/17 05/17/17 05/18/17 15:00 23:00 07:00 Intake Total 600 ml 450 ml Output Total 650 ml 550 ml Balance -50 ml -100 ml Exam Constitutional: alert, oriented Results Result Diagram: 05/17/1718 05/17/1718 Results 24 hrs Laboratory Tests Test 05/18/17 12:50 Body Fluid Type THORACENTESIS FLUID Body Fluid Volume 900.0 Body Fluid Color YELLOW Body Fluid Appearance CLEAR Body Fluid WBC 13 Body Fluid RBC (Auto) 200 Body Fluid Polynuclear WBCs (%) 30.8 Body Fluid Mononuclear Cells % Auto 69.2 Body Fluid Glucose 102 Body Fluid Total Protein 2.4 Body Fluid Lactate Dehydrogenase 201 Medications Medications Current Medications Ondansetron HCl (Zofran Inj) 4 mg Q6H PRN IV NAUSEA AND/OR VOMITING; Start at 00:00 Acetaminophen (Tylenol Tab) 650 mg Q6H PRN PO PAIN LEVEL 1-3 OR FEVER Last administered on 05/17/17t 21:44; Admin Dose 650 MG; Start 05/16/17 at 00:00 Acetaminophen/ Hydrocodone Bitart ([place] (5/325)) 1 tab Q6H PRN PO MODERATE PAIN LEVEL 4-6; Start 05/16/17 at 00:00 Docusate Sodium (Colace) 100 mg Q12H PRN PO CONSTIPATION; Start 05/16/17 at 00 :00 Zolpidem Tartrate (Ambien) 5 mg QHS PRN PO SLEEP; Start 05/16/17 at 00:00 Famotidine (Pepcid) 20 mg DAILY PO Last administered on 05/18/17 09:19; Admin Dose 20 MG; Start 05/16/17 at 09:00 Acetaminophen (Tylenol Tab) 650 mg Q4H PRN PO NON-CARDIAC PAIN LEVEL 1-3; Start 05/16/17 at 00:30 Amiodarone HCl (Cordarone) 100 mg DAILY PO Last administered on 05/18/17 09: 19; Admin Dose 100 MG; Start 05/16/17 at 09:00 Aspirin (Halfprin) 81 mg DAILY PO Last administered on 05/18/17 09:19; Admin Dose 81 MG; Start 05/16/17 at 09:00 Atorvastatin Calcium (Lipitor) 20 mg HS PO Last administered on 05/17/17 20: 36; Admin Dose 20 MG; Start 05/16/17 at 21:00 Benazepril HCl (Lotensin) 5 mg DAILY PO Last administered on 05/18/17 09:20; Admin Dose 5 MG; Start 05/16/17 at 09:00 Bisacodyl (Dulcolax Supp) 10 mg DAILY PRN [place] CONSTIPATION; Start 05/16/17 at 00:30 Brimonidine Tartrate (Alphagan 0.2%) 1 drop BID BOTH EYES Last administered on 05/18/17 09:20; Admin Dose 1 DROP; Start 05/16/17 at 09:00 Cilostazol (Pletal) 100 mg DAILY PO Last administered on 05/18/17 09:19; Admin Dose 100 MG; Start 05/16/17 at 09:00 Clopidogrel Bisulfate (plaVIX) 75 mg DAILY PO Last administered on 05/18/17 09:18; Admin Dose 75 MG; Start 05/16/17 at 09:00 Ferrous Sulfate (Ferrous Sulfate (Ec)) 325 mg DAILY PO Last administered on 09:18; Admin Dose 325 MG; Start 05/16/17 at 09:00 Magnesium Oxide (Mag-Ox 400) 400 mg BID PO Last administered on 05/18/17 09: 19; Admin Dose 400 MG; Start 05/16/17 at 09:00 Nitroglycerin (Nitroglycerin (Sl Tab) 0.4 Mg) 1 tab Q5M PRN SL ANGINA; Start 05/16/17 at 00:30 Sildenafil Citrate (Revatio) 20 mg TID PO Last administered on 05/18/17 13:35 ; Admin Dose 20 MG; Start 05/16/17 at 09:00 Carvedilol (Coreg) 3.125 mg BID PO Last administered on 05/18/17 09:20; Admin Dose 3.125 MG; Start 05/16/17 at 21:00 Calcium/Vitamin D (Oyster Shell/ Vit-D (500/200)) 1 tab DAILY PO Last administered on 05/18/17 09:18; Admin Dose 1 TAB; Start 05/17/17 at 09:00 Mupirocin (Bactroban) 1 applic BID TOP Last administered on 05/18/17 09:16; Admin Dose 1 APPLIC; Start 05/17/17 at 15:00 Furosemide (Lasix) 40 mg DAILY IV Last administered on 05/18/17 09:18; Admin Dose 40 MG; Start 05/18/17 at 09:00 KAVON BLANK May 18, 2017 13:52
--- NOTE | 2017-05-18 14:14 | CONS ---
Date/Time of Note Date/Time of Note DATE: 05/18/17 TIME: 14:05 Assessment/Plan Assessment/Plan Chief Complaint/Hosp Course IMPRESSION: 1. Congestive heart failure exacerbation, diastolic, acute on chronic. 2. Mitral regurgitation, severe. 3. Tricuspid regurgitation, moderate to severe. 4. Aortic stenosis, moderate to severe followed by echo, visually looks more moderate. The mitral valve area was severe. 5. History of percutaneous transluminal coronary angioplasty and stent placement to right coronary artery most recently 09/2016. 6. Pleural effusion status post thoracentesis. 7. Hypernatremia. 8. Anemia. Recc: -Tele -serial ecg's -Continue asa/plavix -Continue benazepril/coreg -Contineu amio -Continue lasix diuresis Problems: Consultation Date/Type/Reason Admit Date/Time May 15, 2017 at 22:28 Initial Consult Date 05/17/17 Type of Consultation: cardiology Reason for Consultation CHF Referring Provider: SPEEDY YOST MD Exam/Review of Systems Vital Signs Vitals Vital Signs Date Time Temp Pulse Resp B/P Pulse Ox O2 Delivery O2 Flow Rate FiO2 05/18/17 13:43 2.0 28 05/18/17 13:43 72 20 Nasal Cannula 05/18/17 11:45 98.1 104/59 95 Intake and Output 05/17/17 05/17/17 05/18/17 15:00 23:00 07:00 Intake Total 600 ml 450 ml Output Total 650 ml 550 ml Balance -50 ml -100 ml Exam Review of Systems: CONSTITUTIONAL: No fevers, chills. PULMONARY: No sob CARDIOVASCULAR: No chest pain/palpitations GASTROINTESTINAL: No nausea/vomiting. GENITOURINARY: No hematuria/dysuria. MUSCULOSKELETAL: No myagias/arthalgias. PSYCHIATRIC: The patient denies depression. NEUROLOGIC: No weakness Constitutional: alert, oriented Psych: no complaints Head: normocephalic ENMT: mucosa pink and moist Neck: jvd, supple Respiratory: diminished breath sounds Cardiovascular: regular rate and rhythm Gastrointestinal: non-tender, soft Musculoskeletal: muscle weakness Extremities: edema Neurological: other (No focal deficits) Results Result Diagram: 05/17/1718 05/17/1718 Results 24 hrs Laboratory Tests Test 05/18/17 12:50 Body Fluid Type THORACENTESIS FLUID Body Fluid Volume 900.0 Body Fluid Color YELLOW Body Fluid Appearance CLEAR Body Fluid WBC 13 Body Fluid RBC (Auto) 200 Body Fluid Polynuclear WBCs (%) 30.8 Body Fluid Mononuclear Cells % Auto 69.2 Body Fluid Glucose 102 Body Fluid Total Protein 2.4 Body Fluid Lactate Dehydrogenase 201 Medications Medications Current Medications Ondansetron HCl (Zofran Inj) 4 mg Q6H PRN IV NAUSEA AND/OR VOMITING; Start at 00:00 Acetaminophen (Tylenol Tab) 650 mg Q6H PRN PO PAIN LEVEL 1-3 OR FEVER Last administered on 05/17/17 21:44; Admin Dose 650 MG; Start 05/16/17 at 00:00 Acetaminophen/ Hydrocodone Bitart ([place] (5/325)) 1 tab Q6H PRN PO MODERATE PAIN LEVEL 4-6; Start 05/16/17 at 00:00 Docusate Sodium (Colace) 100 mg Q12H PRN PO CONSTIPATION; Start 05/16/17 at 00 :00 Zolpidem Tartrate (Ambien) 5 mg QHS PRN PO SLEEP; Start 05/16/17 at 00:00 Famotidine (Pepcid) 20 mg DAILY PO Last administered on 05/18/17 09:19; Admin Dose 20 MG; Start 05/16/17 at 09:00 Acetaminophen (Tylenol Tab) 650 mg Q4H PRN PO NON-CARDIAC PAIN LEVEL 1-3; Start 05/16/17 at 00:30 Amiodarone HCl (Cordarone) 100 mg DAILY PO Last administered on 05/18/17 09: 19; Admin Dose 100 MG; Start 05/16/17 at 09:00 Aspirin (Halfprin) 81 mg DAILY PO Last administered on 05/18/17 09:19; Admin Dose 81 MG; Start 05/16/17 at 09:00 Atorvastatin Calcium (Lipitor) 20 mg HS PO Last administered on 05/17/17 20: 36; Admin Dose 20 MG; Start 05/16/17 at 21:00 Benazepril HCl (Lotensin) 5 mg DAILY PO Last administered on 05/18/17 09:20; Admin Dose 5 MG; Start 05/16/17 at 09:00 Bisacodyl (Dulcolax Supp) 10 mg DAILY PRN [place] CONSTIPATION; Start 05/16/17 at 00:30 Brimonidine Tartrate (Alphagan 0.2%) 1 drop BID BOTH EYES Last administered on 05/18/17 09:20; Admin Dose 1 DROP; Start 05/16/17 at 09:00 Cilostazol (Pletal) 100 mg DAILY PO Last administered on 05/18/17 09:19; Admin Dose 100 MG; Start 05/16/17 at 09:00 Clopidogrel Bisulfate (plaVIX) 75 mg DAILY PO Last administered on 05/18/17 09:18; Admin Dose 75 MG; Start 05/16/17 at 09:00 Ferrous Sulfate (Ferrous Sulfate (Ec)) 325 mg DAILY PO Last administered on 09:18; Admin Dose 325 MG; Start 05/16/17 at 09:00 Magnesium Oxide (Mag-Ox 400) 400 mg BID PO Last administered on 05/18/17 09: 19; Admin Dose 400 MG; Start 05/16/17 at 09:00 Nitroglycerin (Nitroglycerin (Sl Tab) 0.4 Mg) 1 tab Q5M PRN [place] ANGINA; Start 05/16/17 at 00:30 Sildenafil Citrate (Revatio) 20 mg TID PO Last administered on 05/18/17 13:35 ; Admin Dose 20 MG; Start 05/16/17 at 09:00 Carvedilol (Coreg) 3.125 mg BID PO Last administered on 05/18/17 09:20; Admin Dose 3.125 MG; Start 05/16/17 at 21:00 Calcium/Vitamin D (Oyster Shell/ Vit-D (500/200)) 1 tab DAILY PO Last administered on 05/18/17 09:18; Admin Dose 1 TAB; Start 05/17/17 at 09:00 Mupirocin (Bactroban) 1 applic BID TOP Last administered on 05/18/17 09:16; Admin Dose 1 APPLIC; Start 05/17/17 at 15:00 Furosemide (Lasix) 40 mg DAILY IV Last administered on 05/18/17 09:18; Admin Dose 40 MG; Start 05/18/17 at 09:00 HANNAH COLUNGA May 18, 2017 14:14
[2017-05-18] MEDS: FUROSEMIDE 40 MG INJ IV SCH (18:00)
[2017-05-18] MEDS: ATORVASTATIN 20 MG TAB PO SCH (20:43)
[2017-05-19] VITALS (11 sets, daily range): BP systolic 99–130; BP diastolic 56–75; PULSE 71–82; RESP 18–21
[2017-05-19] MEDS: ALBUTEROL/IPRATROPIUM (NEB) 3 ML AMP INH SCH ×4 (01:26→20:02)
[2017-05-19] MEDS: FUROSEMIDE 40 MG INJ IV SCH ×2 (05:09→17:40)
[2017-05-19] MEDS: SILDENAFIL 20 MG TAB PO SCH ×3 (09:00→21:00)
[2017-05-19] MEDS: FAMOTIDINE 20 MG TAB PO SCH (09:47)
[2017-05-19] MEDS: AMIODARONE 200 MG TAB PO SCH (09:48)
[2017-05-19] MEDS: CALCIUM/VITAMIN D (500/200) TAB PO SCH (09:49)
[2017-05-19] MEDS: CLOPIDOGREL 75 MG TAB PO SCH (09:49)
[2017-05-19] MEDS: ASPIRIN (EC) 81 MG TAB PO SCH (09:49)
[2017-05-19] MEDS: CILOSTAZOL 100 MG TAB PO SCH (09:49)
[2017-05-19] MEDS: LEVOTHYROXINE 50 MCG TAB PO SCH (09:50)
[2017-05-19] MEDS: BENAZEPRIL 5 MG TAB PO SCH (09:51)
[2017-05-19] MEDS: FERROUS SULFATE (EC) 325 MG TAB PO SCH (09:52)
[2017-05-19] MEDS: MAGNESIUM OXIDE 400 MG TAB PO SCH ×2 (09:54→21:12)
[2017-05-19] MEDS: MUPIROCIN 2% 22 GM OINT TOP SCH ×2 (09:55→21:12)
[2017-05-19] MEDS: BRIMONIDINE 0.2% 5 ML BTL BOTH EYES SCH ×2 (09:55→21:11)
--- NOTE | 2017-05-19 11:20 | RADRPT ---
PROCEDURE: XR Chest. CLINICAL INDICATION: Shortness of breath. TECHNIQUE: Single frontal view. COMPARISON: 05/17/2017. FINDINGS: There is air space disease bilaterally at the lung bases with right worse than left. The lungs are o therwise clear. The heart is enlarged. There is calcification in the aorta consistent with atherosclerosis. There is no pleural effusion. There is no pneumothorax. IMPRESSION: 1. Worse appearance of the lungs. 2. No other change from 05/17/2017. RPTAT: QQ .Manjit Lobato MD, MD Date Time Electronically viewed and signed by .Manjit Lobato MD, MD on 05/19/2017 11:20 .R/
--- NOTE | 2017-05-19 12:18 | CONS ---
Date/Time of Note Date/Time of Note DATE: 05/19/17 TIME: 12:16 Consult Date/Type/Reason Admit Date/Time May 15, 2017 at 22:28 Initial Consult Date 05/17/17 Type of Consultation: Pulmonary Ordering Provider: SPEEDY YOST MD Subjective Patient comfortable no new events. Objective Vital Signs Date Time Temp Pulse Resp B/P Pulse Ox O2 Delivery O2 Flow Rate FiO2 05/19/17 11:55 98.5 73 20 106/73 96 05/19/17 08:28 Nasal Cannula 2.0 05/18/17 17:05 28 Intake and Output 05/18/17 05/18/17 05/19/17 15:00 23:00 07:00 Intake Total 550 ml 300 ml Output Total 1000 ml 450 ml Balance -450 ml -150 ml Exam GENERAL: Elderly appearing lady comfortable at rest VITAL SIGNS: per chart NECK: Supple. No JVD or lymphadenopathy. CARDIAC EXAM: S1, S2. 2 out of 6 systolic ejection murmur. CHEST: Diminished air entry both lung bases. ABDOMEN: Soft, nontender. No guarding or rebound. EXTREMITIES: No cyanosis, clubbing or edema. NEUROLOGIC: Generalized weakness. No focal deficits. Results/Medications Result Diagram: 05/19/17 0543 05/19/17 0542 Results 24 hrs Laboratory Tests Test 05/18/17 12:50 05/19/17 05:42 05/19/17 05:43 05/19/17 07:00 Body Fluid Type THORACENTESIS FLUID Body Fluid Volume 900.0 Body Fluid Color YELLOW Body Fluid Appearance CLEAR Body Fluid WBC 13 Body Fluid RBC (Auto) 200 Body Fluid Polynuclear WBCs (%) 30.8 Body Fluid Mononuclear Cells % Auto 69.2 Body Fluid Glucose 102 Body Fluid Total Protein 2.4 Body Fluid Lactate Dehydrogenase 201 Sodium Level 138 Potassium Level 4.0 Chloride Level 96 L Carbon Dioxide Level 32 H Anion Gap 14 Blood Urea Nitrogen 30 H Creatinine 0.91 Glucose Level 71 Calcium Level 8.7 White Blood Count 5.8 Red Blood Count 4.03 L Hemoglobin 11.5 L Hematocrit 37.4 Mean Corpuscular Volume 92.8 Mean Corpuscular Hemoglobin 28.5 L Mean Corpuscular Hemoglobin Concent 30.7 L Red Cell Distribution Width 14.8 H Platelet Count 318 Mean Platelet Volume 9.7 Neutrophils % 66.0 Lymphocytes % 17.1 Monocytes % 11.1 H Eosinophils % 4.6 Basophils % 0.9 Nucleated Red Blood Cells % 0.0 Neutrophils # 3.9 Lymphocytes # 1.0 Monocytes # 0.7 Eosinophils # 0.3 Basophils # 0.1 Nucleated Red Blood Cells # 0.0 Blood Gas Specimen Source Blood arterial Arterial Blood Date Drawn 05/19/2017 8:26:23 AM Rohan Test ACCEPTAB Arterial Blood Gas Puncture Site Left Radial Blood Gas Modality NASAL CANNULA Blood Gas Notified Whom [facility] Blood Gas Notified Time 05/19/2017 8:30:49 AM Test 05/19/17 09:37 Blood Gas Specimen Source Blood arterial Arterial Blood Date Drawn 05/19/2017 9:50:36 AM Arterial Blood pH (Temp corrected) 7.474 H Arterial Blood pCO2 (Temp correct) 47.2 H Arterial Blood pO2 (Temp corrected) 55.8 L Arterial Blood HCO3 33.9 H Arterial Blood Base Excess 9.1 H Arterial Blood Oxygen Saturation 89.2 L Rohan Test ACCEPTAB Arterial Blood Gas Puncture Site Right Radial Arterial Blood Carboxyhemoglobin 0.5 Arterial Blood Methemoglobin 0.4 Blood Gas A-a O2 Differential 80.9 H Oxyhemoglobin Percent 88.4 L Total Hemoglobin 12.3 Blood Gas Temperature 37.0 Blood Gas Modality NASAL CANNULA FiO2 27.0 Blood Gas Notified Whom [facility] Blood Gas Notified Time 05/19/2017 9:57:00 AM Medications Current Medications Ondansetron HCl (Zofran Inj) 4 mg Q6H PRN IV NAUSEA AND/OR VOMITING; Start at 00:00 Acetaminophen (Tylenol Tab) 650 mg Q6H PRN PO PAIN LEVEL 1-3 OR FEVER Last administered on 05/17/17 21:44; Admin Dose 650 MG; Start 05/16/17 at 00:00 Acetaminophen/ Hydrocodone Bitart ([place] (5/325)) 1 tab Q6H PRN PO MODERATE PAIN LEVEL 4-6; Start 05/16/17 at 00:00 Docusate Sodium (Colace) 100 mg Q12H PRN PO CONSTIPATION; Start 05/16/17 at 00 :00 Zolpidem Tartrate (Ambien) 5 mg QHS PRN PO SLEEP; Start 05/16/17 at 00:00 Famotidine (Pepcid) 20 mg DAILY PO Last administered on 05/19/17 09:47; Admin Dose 20 MG; Start 05/16/17 at 09:00 Acetaminophen (Tylenol Tab) 650 mg Q4H PRN PO NON-CARDIAC PAIN LEVEL 1-3; Start 05/16/17 at 00:30 Amiodarone HCl (Cordarone) 100 mg DAILY PO Last administered on 05/19/17 09: 48; Admin Dose 100 MG; Start 05/16/17 at 09:00 Aspirin (Halfprin) 81 mg DAILY PO Last administered on 05/19/17 09:49; Admin Dose 81 MG; Start 05/16/17 at 09:00 Atorvastatin Calcium (Lipitor) 20 mg HS PO Last administered on 05/18/17 20: 43; Admin Dose 20 MG; Start 05/16/17 at 21:00 Benazepril HCl (Lotensin) 5 mg DAILY PO Last administered on 05/19/17 09:51; Admin Dose 5 MG; Start 05/16/17 at 09:00 Bisacodyl (Dulcolax Supp) 10 mg DAILY PRN [place] CONSTIPATION; Start 05/16/17 at 00:30 Brimonidine Tartrate (Alphagan 0.2%) 1 drop BID BOTH EYES Last administered on 05/19/17 09:55; Admin Dose 1 DROP; Start 05/16/17 at 09:00 Cilostazol (Pletal) 100 mg DAILY PO Last administered on 05/19/17 09:49; Admin Dose 100 MG; Start 05/16/17 at 09:00 Clopidogrel Bisulfate (plaVIX) 75 mg DAILY PO Last administered on 05/19/17 09:49; Admin Dose 75 MG; Start 05/16/17 at 09:00 Ferrous Sulfate (Ferrous Sulfate (Ec)) 325 mg DAILY PO Last administered on 09:52; Admin Dose 325 MG; Start 05/16/17 at 09:00 Magnesium Oxide (Mag-Ox 400) 400 mg BID PO Last administered on 05/19/17 09: 54; Admin Dose 400 MG; Start 05/16/17 at 09:00 Nitroglycerin (Nitroglycerin (Sl Tab) 0.4 Mg) 1 tab Q5M PRN SL ANGINA; Start 05/16/17 at 00:30 Sildenafil Citrate (Revatio) 20 mg TID PO Last administered on 05/18/17 13:35 ; Admin Dose 20 MG; Start 05/16/17 at 09:00 Carvedilol (Coreg) 3.125 mg BID PO Last administered on 05/19/17 09:53; Admin Dose 3.125 MG; Start 05/16/17 at 21:00 Calcium/Vitamin D (Oyster Shell/ Vit-D (500/200)) 1 tab DAILY PO Last administered on 05/19/17 09:49; Admin Dose 1 TAB; Start 05/17/17 at 09:00 Mupirocin (Bactroban) 1 applic BID TOP Last administered on 05/19/17 09:55; Admin Dose 1 APPLIC; Start 05/17/17 at 15:00 Assessment/Plan Chief Complaint/Hosp Course Assessment 1. Hypoxemic respiratory failure secondary to pleural effusion and congestive cardiac failure repeat chest x-ray shows ongoing congestive cardiac failure and pleural effusions 2. Pleural effusion likely secondary to heart failure status post thoracentesis 3. Severe aortic stenosis 4. Pulmonary hypertension Plan 1. Continue gentle diuresis 2. Aspiration precautions 3. Will likely require snf facility Overall prognosis remains guarded given her valvular disease and ongoing heart failure with renal insufficiency. Consider addressing CODE STATUS given her advanced age. Problems: PONCHO DE SANTIAGO MD, [facility] May 19, 2017 12:18
--- NOTE | 2017-05-19 13:05 | PN ---
Date/Time of Note Date/Time of Note DATE: 05/19/17 TIME: 13:04 Assessment/Plan VTE Prophylaxis VTE Prophylaxis Intervention: ambulation, LMWH Lines/Catheters IV Catheter Type (from Nrs): Saline Lock Urinary Cath still in place: Yes Reason Cath still needed: urinary retention Assessment/Plan Chief Complaint/Hosp Course 1. Congestive heart failure exacerbation with elevated BNP, shortness of breath , lower extremity edema based on the chest x-ray. ECHO+ Mod to severe with Pulmonary HTN 2. Bilateral pleural effusions, left greater than right. 3. History of coronary artery disease status post angioplasty. 4. History of atrial fibrillation, on amiodarone. 5. Hypertension 6. Hyperlipidemia. 7. History of peripheral vascular disease. 8. History of gastroesophageal reflux disease. 9. History of renal insufficiency. 10. Anemia. 11. Cardiomegaly. 12. Glaucoma. Problems: Assessment/Plan 1. grain i farmworker for code status 2. continue current treatment Subjective 24 Hr Interval Summary Constitutional: improved, no complaints Exam/Review of Systems Vital Signs Vitals Vital Signs Date Time Temp Pulse Resp B/P Pulse Ox O2 Delivery O2 Flow Rate FiO2 05/19/17 12:31 71 05/19/17 11:55 98.5 20 106/73 96 05/19/17 08:28 Nasal Cannula 2.0 05/18/17 17:05 28 Intake and Output 05/18/17 05/18/17 05/19/17 15:00 23:00 07:00 Intake Total 550 ml 300 ml Output Total 1000 ml 450 ml Balance -450 ml -150 ml Exam Constitutional: alert Head: normocephalic Eyes: nl conjunctiva ENMT: nl external ears & nose Neck: supple Respiratory: diminished breath sounds Cardiovascular: regular rate and rhythm Results Result Diagram: 05/19/17 0543 05/19/17 0542 Results 24 hrs Laboratory Tests Test 05/19/17 05:42 05/19/17 05:43 05/19/17 07:00 05/19/17 09:37 Sodium Level 138 Potassium Level 4.0 Chloride Level 96 L Carbon Dioxide Level 32 H Anion Gap 14 Blood Urea Nitrogen 30 H Creatinine 0.91 Glucose Level 71 Calcium Level 8.7 White Blood Count 5.8 Red Blood Count 4.03 L Hemoglobin 11.5 L Hematocrit 37.4 Mean Corpuscular Volume 92.8 Mean Corpuscular Hemoglobin 28.5 L Mean Corpuscular Hemoglobin Concent 30.7 L Red Cell Distribution Width 14.8 H Platelet Count 318 Mean Platelet Volume 9.7 Neutrophils % 66.0 Lymphocytes % 17.1 Monocytes % 11.1 H Eosinophils % 4.6 Basophils % 0.9 Nucleated Red Blood Cells % 0.0 Neutrophils # 3.9 Lymphocytes # 1.0 Monocytes # 0.7 Eosinophils # 0.3 Basophils # 0.1 Nucleated Red Blood Cells # 0.0 Blood Gas Specimen Source Blood arterial Blood arterial Arterial Blood Date Drawn 05/19/2017 8:26:23 AM 05/19/2017 9:50:36 AM Rohan Test ACCEPTAB ACCEPTAB Arterial Blood Gas Puncture Site Left Radial Right Radial Blood Gas Modality NASAL CANNULA NASAL CANNULA Blood Gas Notified Whom MDA MDA Blood Gas Notified Time 05/19/2017 8:30:49 AM 05/19/2017 9:57:00 AM Arterial Blood pH (Temp corrected) 7.474 H Arterial Blood pCO2 (Temp correct) 47.2 H Arterial Blood pO2 (Temp corrected) 55.8 L Arterial Blood HCO3 33.9 H Arterial Blood Base Excess 9.1 H Arterial Blood Oxygen Saturation 89.2 L Arterial Blood Carboxyhemoglobin 0.5 Arterial Blood Methemoglobin 0.4 Blood Gas A-a O2 Differential 80.9 H Oxyhemoglobin Percent 88.4 L Total Hemoglobin 12.3 Blood Gas Temperature 37.0 FiO2 27.0 Medications Medications Current Medications Ondansetron HCl (Zofran Inj) 4 mg Q6H PRN IV NAUSEA AND/OR VOMITING; Start at 00:00 Acetaminophen (Tylenol Tab) 650 mg Q6H PRN PO PAIN LEVEL 1-3 OR FEVER Last administered on 05/17/17t 21:44; Admin Dose 650 MG; Start 05/16/17 at 00:00 Acetaminophen/ Hydrocodone Bitart ([place] (5/325)) 1 tab Q6H PRN PO MODERATE PAIN LEVEL 4-6; Start 05/16/17 at 00:00 Docusate Sodium (Colace) 100 mg Q12H PRN PO CONSTIPATION; Start 05/16/17 at 00 :00 Zolpidem Tartrate (Ambien) 5 mg QHS PRN PO SLEEP; Start 05/16/17 at 00:00 Famotidine (Pepcid) 20 mg DAILY PO Last administered on 05/19/17 09:47; Admin Dose 20 MG; Start 05/16/17 at 09:00 Acetaminophen (Tylenol Tab) 650 mg Q4H PRN PO NON-CARDIAC PAIN LEVEL 1-3; Start 05/16/17 at 00:30 Amiodarone HCl (Cordarone) 100 mg DAILY PO Last administered on 05/19/17 09: 48; Admin Dose 100 MG; Start 05/16/17 at 09:00 Aspirin (Halfprin) 81 mg DAILY PO Last administered on 05/19/17 09:49; Admin Dose 81 MG; Start 05/16/17 at 09:00 Atorvastatin Calcium (Lipitor) 20 mg HS PO Last administered on 05/18/17 20: 43; Admin Dose 20 MG; Start 05/16/17 at 21:00 Benazepril HCl (Lotensin) 5 mg DAILY PO Last administered on 05/19/17 09:51; Admin Dose 5 MG; Start 05/16/17 at 09:00 Bisacodyl (Dulcolax Supp) 10 mg DAILY PRN [place] CONSTIPATION; Start 05/16/17 at 00:30 Brimonidine Tartrate (Alphagan 0.2%) 1 drop BID BOTH EYES Last administered on 05/19/17 09:55; Admin Dose 1 DROP; Start 05/16/17 at 09:00 Cilostazol (Pletal) 100 mg DAILY PO Last administered on 05/19/17 09:49; Admin Dose 100 MG; Start 05/16/17 at 09:00 Clopidogrel Bisulfate (plaVIX) 75 mg DAILY PO Last administered on 05/19/17 09:49; Admin Dose 75 MG; Start 05/16/17 at 09:00 Ferrous Sulfate (Ferrous Sulfate (Ec)) 325 mg DAILY PO Last administered on 09:52; Admin Dose 325 MG; Start 05/16/17 at 09:00 Magnesium Oxide (Mag-Ox 400) 400 mg BID PO Last administered on 05/19/17 09: 54; Admin Dose 400 MG; Start 05/16/17 at 09:00 Nitroglycerin (Nitroglycerin (Sl Tab) 0.4 Mg) 1 tab Q5M PRN SL ANGINA; Start 05/16/17 at 00:30 Sildenafil Citrate (Revatio) 20 mg TID PO Last administered on 05/19/17 12:28 ; Admin Dose 20 MG; Start 05/16/17 at 09:00 Carvedilol (Coreg) 3.125 mg BID PO Last administered on 05/19/17 09:53; Admin Dose 3.125 MG; Start 05/16/17 at 21:00 Calcium/Vitamin D (Oyster Shell/ Vit-D (500/200)) 1 tab DAILY PO Last administered on 05/19/17 09:49; Admin Dose 1 TAB; Start 05/17/17 at 09:00 Mupirocin (Bactroban) 1 applic BID TOP Last administered on 05/19/17 09:55; Admin Dose 1 APPLIC; Start 05/17/17 at 15:00 KAVON BLANK May 19, 2017 13:05
--- NOTE | 2017-05-19 15:03 | CONS ---
Date/Time of Note Date/Time of Note DATE: 05/19/17 TIME: 14:58 Assessment/Plan Assessment/Plan Additional Assessment/Plan 1. Congestive heart failure exacerbation, diastolic, acute on chronic. 2. Mitral regurgitation, severe. 3. Tricuspid regurgitation, moderate to severe. 4. Aortic stenosis 5. CAD percutaneous transluminal coronary angioplasty and stent placement to right coronary artery most recently 09/2016. 6. Pleural effusion status post thoracentesis. 7. Severe Pulmonary Hypertension 8. Anemia. hemodynamically stable Continue diuresis with Lasix Avoid Volume Overload Continue Sildenafil Continue Coreg Continue Amiodarone Continue benazepril Continue Lipitor Continue ASA and Plavix Continue Levothyroxine Consultation Date/Type/Reason Admit Date/Time May 15, 2017 at 22:28 Constitutional: improved, no complaints Psychological: no complaints Past Surgical History Past Surgical Hx: no surgical history Social History Smoking Status: Unknown if ever smoked Exam/Review of Systems Vital Signs Vitals Vital Signs Date Time Temp Pulse Resp B/P Pulse Ox O2 Delivery O2 Flow Rate FiO2 05/19/17 12:31 71 05/19/17 11:55 98.5 20 106/73 96 05/19/17 08:28 Nasal Cannula 2.0 05/18/17 17:05 28 Intake and Output 05/18/17 05/18/17 05/19/17 14:59 22:59 06:59 Intake Total 550 ml 300 ml Output Total 1000 ml 450 ml Balance -450 ml -150 ml Exam Constitutional: alert Head: atraumatic, normocephalic Neck: non-tender, supple Respiratory: diminished breath sounds Cardiovascular: irregular rhythm, other (systolic murmru heard at LSB and 5thLICS) Gastrointestinal: nl liver, spleen, non-tender, soft Extremities: normal pulses Results Result Diagram: 05/19/17 0543 05/19/17 0542 Results 24 hrs Laboratory Tests Test 05/19/17 05:42 05/19/17 05:43 05/19/17 07:00 05/19/17 09:37 Sodium Level 138 Potassium Level 4.0 Chloride Level 96 L Carbon Dioxide Level 32 H Anion Gap 14 Blood Urea Nitrogen 30 H Creatinine 0.91 Glucose Level 71 Calcium Level 8.7 White Blood Count 5.8 Red Blood Count 4.03 L Hemoglobin 11.5 L Hematocrit 37.4 Mean Corpuscular Volume 92.8 Mean Corpuscular Hemoglobin 28.5 L Mean Corpuscular Hemoglobin Concent 30.7 L Red Cell Distribution Width 14.8 H Platelet Count 318 Mean Platelet Volume 9.7 Neutrophils % 66.0 Lymphocytes % 17.1 Monocytes % 11.1 H Eosinophils % 4.6 Basophils % 0.9 Nucleated Red Blood Cells % 0.0 Neutrophils # 3.9 Lymphocytes # 1.0 Monocytes # 0.7 Eosinophils # 0.3 Basophils # 0.1 Nucleated Red Blood Cells # 0.0 Blood Gas Specimen Source Blood arterial Blood arterial Arterial Blood Date Drawn 05/19/2017 8:26:23 AM 05/19/2017 9:50:36 AM Rohan Test ACCEPTAB ACCEPTAB Arterial Blood Gas Puncture Site Left Radial Right Radial Blood Gas Modality NASAL CANNULA NASAL CANNULA Blood Gas Notified Whom MDA MDA Blood Gas Notified Time 05/19/2017 8:30:49 AM 05/19/2017 9:57:00 AM Arterial Blood pH (Temp corrected) 7.474 H Arterial Blood pCO2 (Temp correct) 47.2 H Arterial Blood pO2 (Temp corrected) 55.8 L Arterial Blood HCO3 33.9 H Arterial Blood Base Excess 9.1 H Arterial Blood Oxygen Saturation 89.2 L Arterial Blood Carboxyhemoglobin 0.5 Arterial Blood Methemoglobin 0.4 Blood Gas A-a O2 Differential 80.9 H Oxyhemoglobin Percent 88.4 L Total Hemoglobin 12.3 Blood Gas Temperature 37.0 FiO2 27.0 Medications Medications Current Medications Ondansetron HCl (Zofran Inj) 4 mg Q6H PRN IV NAUSEA AND/OR VOMITING; Start at 00:00 Acetaminophen (Tylenol Tab) 650 mg Q6H PRN PO PAIN LEVEL 1-3 OR FEVER Last administered on 05/17/17t 21:44; Admin Dose 650 MG; Start 05/16/17 at 00:00 Acetaminophen/ Hydrocodone Bitart ([place] (5/325)) 1 tab Q6H PRN PO MODERATE PAIN LEVEL 4-6; Start 05/16/17 at 00:00 Docusate Sodium (Colace) 100 mg Q12H PRN PO CONSTIPATION; Start 05/16/17 at 00 :00 Zolpidem Tartrate (Ambien) 5 mg QHS PRN PO SLEEP; Start 05/16/17 at 00:00 Famotidine (Pepcid) 20 mg DAILY PO Last administered on 05/19/17 09:47; Admin Dose 20 MG; Start 05/16/17 at 09:00 Acetaminophen (Tylenol Tab) 650 mg Q4H PRN PO NON-CARDIAC PAIN LEVEL 1-3; Start 05/16/17 at 00:30 Amiodarone HCl (Cordarone) 100 mg DAILY PO Last administered on 05/19/17 09: 48; Admin Dose 100 MG; Start 05/16/17 at 09:00 Aspirin (Halfprin) 81 mg DAILY PO Last administered on 05/19/17 09:49; Admin Dose 81 MG; Start 05/16/17 at 09:00 Atorvastatin Calcium (Lipitor) 20 mg HS PO Last administered on 05/18/17 20: 43; Admin Dose 20 MG; Start 05/16/17 at 21:00 Benazepril HCl (Lotensin) 5 mg DAILY PO Last administered on 05/19/17 09:51; Admin Dose 5 MG; Start 05/16/17 at 09:00 Bisacodyl (Dulcolax Supp) 10 mg DAILY PRN [place] CONSTIPATION; Start 05/16/17 at 00:30 Brimonidine Tartrate (Alphagan 0.2%) 1 drop BID BOTH EYES Last administered on 05/19/17 09:55; Admin Dose 1 DROP; Start 05/16/17 at 09:00 Cilostazol (Pletal) 100 mg DAILY PO Last administered on 05/19/17 09:49; Admin Dose 100 MG; Start 05/16/17 at 09:00 Clopidogrel Bisulfate (plaVIX) 75 mg DAILY PO Last administered on 05/19/17 09:49; Admin Dose 75 MG; Start 05/16/17 at 09:00 Ferrous Sulfate (Ferrous Sulfate (Ec)) 325 mg DAILY PO Last administered on 09:52; Admin Dose 325 MG; Start 05/16/17 at 09:00 Magnesium Oxide (Mag-Ox 400) 400 mg BID PO Last administered on 05/19/17 09: 54; Admin Dose 400 MG; Start 05/16/17 at 09:00 Nitroglycerin (Nitroglycerin (Sl Tab) 0.4 Mg) 1 tab Q5M PRN SL ANGINA; Start 05/16/17 at 00:30 Sildenafil Citrate (Revatio) 20 mg TID PO Last administered on 05/19/17 12:28 ; Admin Dose 20 MG; Start 05/16/17 at 09:00 Carvedilol (Coreg) 3.125 mg BID PO Last administered on 05/19/17 09:53; Admin Dose 3.125 MG; Start 05/16/17 at 21:00 Calcium/Vitamin D (Oyster Shell/ Vit-D (500/200)) 1 tab DAILY PO Last administered on 05/19/17 09:49; Admin Dose 1 TAB; Start 05/17/17 at 09:00 Mupirocin (Bactroban) 1 applic BID TOP Last administered on 05/19/17 09:55; Admin Dose 1 APPLIC; Start 05/17/17 at 15:00 KENNY VENEGAS M.D. May 19, 2017 15:03
[2017-05-19] MEDS: ATORVASTATIN 20 MG TAB PO SCH (21:12)
[2017-05-20] VITALS (14 sets, daily range): BP systolic 83–117; BP diastolic 50–72; PULSE 69–78; RESP 18–21
[2017-05-20] MEDS: ALBUTEROL/IPRATROPIUM (NEB) 3 ML AMP INH SCH ×4 (01:48→20:30)
[2017-05-20] MEDS: LEVOTHYROXINE 50 MCG TAB PO SCH (06:36)
[2017-05-20] MEDS: CILOSTAZOL 100 MG TAB PO SCH (09:14)
[2017-05-20] MEDS: FUROSEMIDE 40 MG INJ IV SCH (09:14)
[2017-05-20] MEDS: MAGNESIUM OXIDE 400 MG TAB PO SCH ×2 (09:14→21:26)
[2017-05-20] MEDS: CALCIUM/VITAMIN D (500/200) TAB PO SCH (09:15)
[2017-05-20] MEDS: SILDENAFIL 20 MG TAB PO SCH ×3 (09:15→21:00)
[2017-05-20] MEDS: FAMOTIDINE 20 MG TAB PO SCH (09:15)
[2017-05-20] MEDS: ASPIRIN (EC) 81 MG TAB PO SCH (09:18)
[2017-05-20] MEDS: CLOPIDOGREL 75 MG TAB PO SCH (09:18)
[2017-05-20] MEDS: AMIODARONE 200 MG TAB PO SCH (09:19)
[2017-05-20] MEDS: BENAZEPRIL 5 MG TAB PO SCH (09:21)
[2017-05-20] MEDS: BRIMONIDINE 0.2% 5 ML BTL BOTH EYES SCH ×2 (09:21→21:26)
[2017-05-20] MEDS: FERROUS SULFATE (EC) 325 MG TAB PO SCH (09:22)
[2017-05-20] MEDS: MUPIROCIN 2% 22 GM OINT TOP SCH ×2 (09:22→21:26)
--- NOTE | 2017-05-20 10:50 | CONS ---
Date/Time of Note Date/Time of Note DATE: 05/20/17 TIME: 10:49 Consult Date/Type/Reason Admit Date/Time May 15, 2017 at 22:28 Initial Consult Date 05/17/17 Type of Consultation: Pulmonary Ordering Provider: SPEEDY YOST MD Subjective Patient doing okay this morning. No new events. Objective Vital Signs Date Time Temp Pulse Resp B/P Pulse Ox O2 Delivery O2 Flow Rate FiO2 05/20/17 08:24 78 05/20/17 07:47 97.8 18 117/72 99 05/20/17 07:32 Nasal Cannula 2.0 05/18/17 17:05 28 Intake and Output 05/19/17 05/19/17 05/20/17 15:00 23:00 07:00 Intake Total 780 ml Output Total 1200 ml Balance -420 ml Exam GENERAL: Elderly appearing lady comfortable at rest VITAL SIGNS: per chart NECK: Supple. No JVD or lymphadenopathy. CARDIAC EXAM: S1, S2. 2 out of 6 systolic ejection murmur. CHEST: Diminished air entry both lung bases. ABDOMEN: Soft, nontender. No guarding or rebound. EXTREMITIES: No cyanosis, clubbing or edema. NEUROLOGIC: Generalized weakness. No focal deficits. Results/Medications Result Diagram: 05/20/1752105/20/17521 Results 24 hrs Laboratory Tests Test 05/20/17 05:22 White Blood Count 6.1 Red Blood Count 4.03 L Hemoglobin 11.1 L Hematocrit 37.0 Mean Corpuscular Volume 91.8 Mean Corpuscular Hemoglobin 27.5 L Mean Corpuscular Hemoglobin Concent 30.0 L Red Cell Distribution Width 14.8 H Platelet Count 344 Mean Platelet Volume 9.4 Neutrophils % 62.1 Lymphocytes % 18.8 Monocytes % 12.4 H Eosinophils % 5.4 Basophils % 1.0 Nucleated Red Blood Cells % 0.0 Neutrophils # 3.8 Lymphocytes # 1.2 Monocytes # 0.8 Eosinophils # 0.3 Basophils # 0.1 Nucleated Red Blood Cells # 0.0 Sodium Level 140 Potassium Level 3.8 Chloride Level 96 L Carbon Dioxide Level 35 H Anion Gap 13 Blood Urea Nitrogen 34 H Creatinine 0.96 Glucose Level 82 Calcium Level 8.5 Medications Current Medications Ondansetron HCl (Zofran Inj) 4 mg Q6H PRN IV NAUSEA AND/OR VOMITING; Start at 00:00 Acetaminophen (Tylenol Tab) 650 mg Q6H PRN PO PAIN LEVEL 1-3 OR FEVER Last administered on 05/17/17 21:44; Admin Dose 650 MG; Start 05/16/17 at 00:00 Acetaminophen/ Hydrocodone Bitart ([place] (5/325)) 1 tab Q6H PRN PO MODERATE PAIN LEVEL 4-6; Start 05/16/17 at 00:00 Docusate Sodium (Colace) 100 mg Q12H PRN PO CONSTIPATION; Start 05/16/17 at 00 :00 Zolpidem Tartrate (Ambien) 5 mg QHS PRN PO SLEEP; Start 05/16/17 at 00:00 Famotidine (Pepcid) 20 mg DAILY PO Last administered on 05/20/17 09:15; Admin Dose 20 MG; Start 05/16/17 at 09:00 Acetaminophen (Tylenol Tab) 650 mg Q4H PRN PO NON-CARDIAC PAIN LEVEL 1-3; Start 05/16/17 at 00:30 Amiodarone HCl (Cordarone) 100 mg DAILY PO Last administered on 05/20/17 09: 19; Admin Dose 100 MG; Start 05/16/17 at 09:00 Aspirin (Halfprin) 81 mg DAILY PO Last administered on 05/20/17 09:18; Admin Dose 81 MG; Start 05/16/17 at 09:00 Atorvastatin Calcium (Lipitor) 20 mg HS PO Last administered on 05/19/17 21: 12; Admin Dose 20 MG; Start 05/16/17 at 21:00 Benazepril HCl (Lotensin) 5 mg DAILY PO Last administered on 05/20/17 09:21; Admin Dose 5 MG; Start 05/16/17 at 09:00 Bisacodyl (Dulcolax Supp) 10 mg DAILY PRN [place] CONSTIPATION; Start 05/16/17 at 00:30 Brimonidine Tartrate (Alphagan 0.2%) 1 drop BID BOTH EYES Last administered on 05/20/17 09:21; Admin Dose 1 DROP; Start 05/16/17 at 09:00 Cilostazol (Pletal) 100 mg DAILY PO Last administered on 05/20/17 09:14; Admin Dose 100 MG; Start 05/16/17 at 09:00 Clopidogrel Bisulfate (plaVIX) 75 mg DAILY PO Last administered on 05/20/17 09:18; Admin Dose 75 MG; Start 05/16/17 at 09:00 Ferrous Sulfate (Ferrous Sulfate (Ec)) 325 mg DAILY PO Last administered on 09:22; Admin Dose 325 MG; Start 05/16/17 at 09:00 Magnesium Oxide (Mag-Ox 400) 400 mg BID PO Last administered on 05/20/17 09: 14; Admin Dose 400 MG; Start 05/16/17 at 09:00 Nitroglycerin (Nitroglycerin (Sl Tab) 0.4 Mg) 1 tab Q5M PRN SL ANGINA; Start 05/16/17 at 00:30 Sildenafil Citrate (Revatio) 20 mg TID PO Last administered on 05/20/17 09:15 ; Admin Dose 20 MG; Start 05/16/17 at 09:00 Carvedilol (Coreg) 3.125 mg BID PO Last administered on 05/20/17 09:16; Admin Dose 3.125 MG; Start 05/16/17 at 21:00 Calcium/Vitamin D (Oyster Shell/ Vit-D (500/200)) 1 tab DAILY PO Last administered on 05/20/17 09:15; Admin Dose 1 TAB; Start 05/17/17 at 09:00 Mupirocin (Bactroban) 1 applic BID TOP Last administered on 05/20/17 09:22; Admin Dose 1 APPLIC; Start 05/17/17 at 15:00 Furosemide (Lasix) 40 mg DAILY IV Last administered on 05/20/17 09:14; Admin Dose 40 MG; Start 05/20/17 at 09:00 Assessment/Plan Chief Complaint/Hosp Course Assessment 1. Hypoxemic respiratory failure secondary to pleural effusion and congestive cardiac failure repeat chest x-ray shows ongoing congestive cardiac failure and recurrent pleural effusions 2. Pleural effusion likely secondary to heart failure status post thoracentesis 3. Severe aortic stenosis 4. Pulmonary hypertension Plan 1. Continue gentle diuresis 2. Aspiration precautions 3. Will likely require correction facility Overall prognosis remains guarded given her valvular disease and ongoing heart failure with renal insufficiency. Consider addressing CODE STATUS given her advanced age. Problems: PONCHO DE SANTIAGO MD, [facility] May 20, 2017 10:50
--- NOTE | 2017-05-20 12:05 | CONS ---
Date/Time of Note Date/Time of Note DATE: 05/20/17 TIME: 12:03 Assessment/Plan Assessment/Plan Chief Complaint/Hosp Course This is an 87-year-old woman presenting with: 1. Congestive heart failure exacerbation with elevated BNP, shortness of breath , lower extremity edema based on the chest x-ray. ECHO+ Mod to severe with Pulmonary HTN 2. Bilateral pleural effusions, left greater than right. 3. History of coronary artery disease status post angioplasty. 4. History of atrial fibrillation, on amiodarone. 5. Hypertension 6. Hyperlipidemia. 7. History of peripheral vascular disease. 8. History of gastroesophageal reflux disease. 9. History of insufficiency. 10. Anemia. 11. Cardiomegaly. 12. Glaucoma. Recs - s/p Thoracentesis - Hold BP meds if SBP<100 - Decrease Lasix to 40 - C/W ASA/ Plavix - Cards consult - Pulm consult - SW for code status Problems: Consultation Date/Type/Reason Admit Date/Time May 15, 2017 at 22:28 Initial Consult Date 05/17/17 Type of Consultation: Renal Referring Provider: SPEEDY YOST MD 24 HR Interval Summary Free Text/Dictation SBP 100 this am Exam/Review of Systems Vital Signs Vitals Vital Signs Date Time Temp Pulse Resp B/P Pulse Ox O2 Delivery O2 Flow Rate FiO2 05/20/17 11:33 98.1 72 18 83/50 95 05/20/17 07:32 Nasal Cannula 2.0 05/18/17 17:05 28 Intake and Output 05/19/17 05/19/17 05/20/17 15:00 23:00 07:00 Intake Total 780 ml Output Total 1200 ml Balance -420 ml Exam ENERAL: Patient opens his closed eyes, only responds to his name, tries to follow basic commands. Lens implant NECK: Supple, JVD. HEART: FAMILIA+ LUNGS: Decreased breath sounds on the right, . Also, on the left. ABDOMEN: Soft, nontender, nondistended, positive normoactive bowel sounds. EXTREMITIES: 1+ edema. Results Result Diagram: 05/20/17 0522 05/20/1722 Results 24 hrs Laboratory Tests Test 05/20/17 05:22 White Blood Count 6.1 Red Blood Count 4.03 L Hemoglobin 11.1 L Hematocrit 37.0 Mean Corpuscular Volume 91.8 Mean Corpuscular Hemoglobin 27.5 L Mean Corpuscular Hemoglobin Concent 30.0 L Red Cell Distribution Width 14.8 H Platelet Count 344 Mean Platelet Volume 9.4 Neutrophils % 62.1 Lymphocytes % 18.8 Monocytes % 12.4 H Eosinophils % 5.4 Basophils % 1.0 Nucleated Red Blood Cells % 0.0 Neutrophils # 3.8 Lymphocytes # 1.2 Monocytes # 0.8 Eosinophils # 0.3 Basophils # 0.1 Nucleated Red Blood Cells # 0.0 Sodium Level 140 Potassium Level 3.8 Chloride Level 96 L Carbon Dioxide Level 35 H Anion Gap 13 Blood Urea Nitrogen 34 H Creatinine 0.96 Glucose Level 82 Calcium Level 8.5 Medications Medications Current Medications Ondansetron HCl (Zofran Inj) 4 mg Q6H PRN IV NAUSEA AND/OR VOMITING; Start at 00:00 Acetaminophen (Tylenol Tab) 650 mg Q6H PRN PO PAIN LEVEL 1-3 OR FEVER Last administered on 05/17/17 21:44; Admin Dose 650 MG; Start 05/16/17 at 00:00 Acetaminophen/ Hydrocodone Bitart ([place] (5/325)) 1 tab Q6H PRN PO MODERATE PAIN LEVEL 4-6; Start 05/16/17 at 00:00 Docusate Sodium (Colace) 100 mg Q12H PRN PO CONSTIPATION; Start 05/16/17 at 00 :00 Zolpidem Tartrate (Ambien) 5 mg QHS PRN PO SLEEP; Start 05/16/17 at 00:00 Famotidine (Pepcid) 20 mg DAILY PO Last administered on 05/20/17 09:15; Admin Dose 20 MG; Start 05/16/17 at 09:00 Acetaminophen (Tylenol Tab) 650 mg Q4H PRN PO NON-CARDIAC PAIN LEVEL 1-3; Start 05/16/17 at 00:30 Amiodarone HCl (Cordarone) 100 mg DAILY PO Last administered on 05/20/17 09: 19; Admin Dose 100 MG; Start 05/16/17 at 09:00 Aspirin (Halfprin) 81 mg DAILY PO Last administered on 05/20/17 09:18; Admin Dose 81 MG; Start 05/16/17 at 09:00 Atorvastatin Calcium (Lipitor) 20 mg HS PO Last administered on 05/19/17 21: 12; Admin Dose 20 MG; Start 05/16/17 at 21:00 Benazepril HCl (Lotensin) 5 mg DAILY PO Last administered on 05/20/17 09:21; Admin Dose 5 MG; Start 05/16/17 at 09:00 Bisacodyl (Dulcolax Supp) 10 mg DAILY PRN [place] CONSTIPATION; Start 05/16/17 at 00:30 Brimonidine Tartrate (Alphagan 0.2%) 1 drop BID BOTH EYES Last administered on 05/20/17 09:21; Admin Dose 1 DROP; Start 05/16/17 at 09:00 Cilostazol (Pletal) 100 mg DAILY PO Last administered on 05/20/17 09:14; Admin Dose 100 MG; Start 05/16/17 at 09:00 Clopidogrel Bisulfate (plaVIX) 75 mg DAILY PO Last administered on 05/20/17 09:18; Admin Dose 75 MG; Start 05/16/17 at 09:00 Ferrous Sulfate (Ferrous Sulfate (Ec)) 325 mg DAILY PO Last administered on 09:22; Admin Dose 325 MG; Start 05/16/17 at 09:00 Magnesium Oxide (Mag-Ox 400) 400 mg BID PO Last administered on 05/20/17 09: 14; Admin Dose 400 MG; Start 05/16/17 at 09:00 Nitroglycerin (Nitroglycerin (Sl Tab) 0.4 Mg) 1 tab Q5M PRN SL ANGINA; Start 05/16/17 at 00:30 Sildenafil Citrate (Revatio) 20 mg TID PO Last administered on 05/20/17 09:15 ; Admin Dose 20 MG; Start 05/16/17 at 09:00 Carvedilol (Coreg) 3.125 mg BID PO Last administered on 05/20/17 09:16; Admin Dose 3.125 MG; Start 05/16/17 at 21:00 Calcium/Vitamin D (Oyster Shell/ Vit-D (500/200)) 1 tab DAILY PO Last administered on 05/20/17 09:15; Admin Dose 1 TAB; Start 05/17/17 at 09:00 Mupirocin (Bactroban) 1 applic BID TOP Last administered on 05/20/17 09:22; Admin Dose 1 APPLIC; Start 05/17/17 at 15:00 Furosemide (Lasix) 40 mg DAILY IV Last administered on 05/20/17t 09:14; Admin Dose 40 MG; Start 05/20/17 at 09:00 SPEEDY YOST MD May 20, 2017 12:05
--- NOTE | 2017-05-20 14:09 | CONS ---
Date/Time of Note Date/Time of Note DATE: 05/20/17 TIME: 14:08 Assessment/Plan Assessment/Plan Additional Assessment/Plan 1. Congestive heart failure exacerbation, diastolic, acute on chronic. 2. Mitral regurgitation, severe. 3. Tricuspid regurgitation, moderate to severe. 4. Aortic stenosis 5. CAD s/p PTCA and stent placement to right coronary artery 6. Pleural effusion status post thoracentesis. 7. Severe Pulmonary Hypertension 8. Anemia. hemodynamically stable Continue diuresis with Lasix Avoid Volume Overload Continue Sildenafil Continue Coreg Continue Amiodarone Continue benazepril Continue Lipitor Continue ASA and Plavix Continue Levothyroxine Consultation Date/Type/Reason Admit Date/Time May 15, 2017 at 22:28 Initial Consult Date 05/17/17 Type of Consultation: Renal Referring Provider: SPEEDY YOST MD Exam/Review of Systems Vital Signs Vitals Vital Signs Date Time Temp Pulse Resp B/P Pulse Ox O2 Delivery O2 Flow Rate FiO2 05/20/17 12:26 75 05/20/17 11:33 98.1 18 83/50 95 05/20/17 07:32 Nasal Cannula 2.0 05/18/17 17:05 28 Intake and Output 05/19/17 05/19/17 05/20/17 15:00 23:00 07:00 Intake Total 780 ml Output Total 1200 ml Balance -420 ml Exam Constitutional: alert, oriented Neck: non-tender, supple Respiratory: clear to auscultation Cardiovascular: other (systolic murmur heard at LSB and 5th LICS), regular rate and rhythm Results Result Diagram: 05/20/1722 05/20/17 0522 Results 24 hrs Laboratory Tests Test 05/20/17 05:22 White Blood Count 6.1 Red Blood Count 4.03 L Hemoglobin 11.1 L Hematocrit 37.0 Mean Corpuscular Volume 91.8 Mean Corpuscular Hemoglobin 27.5 L Mean Corpuscular Hemoglobin Concent 30.0 L Red Cell Distribution Width 14.8 H Platelet Count 344 Mean Platelet Volume 9.4 Neutrophils % 62.1 Lymphocytes % 18.8 Monocytes % 12.4 H Eosinophils % 5.4 Basophils % 1.0 Nucleated Red Blood Cells % 0.0 Neutrophils # 3.8 Lymphocytes # 1.2 Monocytes # 0.8 Eosinophils # 0.3 Basophils # 0.1 Nucleated Red Blood Cells # 0.0 Sodium Level 140 Potassium Level 3.8 Chloride Level 96 L Carbon Dioxide Level 35 H Anion Gap 13 Blood Urea Nitrogen 34 H Creatinine 0.96 Glucose Level 82 Calcium Level 8.5 Medications Medications Current Medications Ondansetron HCl (Zofran Inj) 4 mg Q6H PRN IV NAUSEA AND/OR VOMITING; Start at 00:00 Acetaminophen (Tylenol Tab) 650 mg Q6H PRN PO PAIN LEVEL 1-3 OR FEVER Last administered on 05/17/17 21:44; Admin Dose 650 MG; Start 05/16/17 at 00:00 Acetaminophen/ Hydrocodone Bitart ([place] (5/325)) 1 tab Q6H PRN PO MODERATE PAIN LEVEL 4-6; Start 05/16/17 at 00:00 Docusate Sodium (Colace) 100 mg Q12H PRN PO CONSTIPATION; Start 05/16/17 at 00 :00 Zolpidem Tartrate (Ambien) 5 mg QHS PRN PO SLEEP; Start 05/16/17 at 00:00 Famotidine (Pepcid) 20 mg DAILY PO Last administered on 05/20/17 09:15; Admin Dose 20 MG; Start 05/16/17 at 09:00 Acetaminophen (Tylenol Tab) 650 mg Q4H PRN PO NON-CARDIAC PAIN LEVEL 1-3; Start 05/16/17 at 00:30 Amiodarone HCl (Cordarone) 100 mg DAILY PO Last administered on 05/20/17 09: 19; Admin Dose 100 MG; Start 05/16/17 at 09:00 Aspirin (Halfprin) 81 mg DAILY PO Last administered on 05/20/17 09:18; Admin Dose 81 MG; Start 05/16/17 at 09:00 Atorvastatin Calcium (Lipitor) 20 mg HS PO Last administered on 05/19/17 21: 12; Admin Dose 20 MG; Start 05/16/17 at 21:00 Bisacodyl (Dulcolax Supp) 10 mg DAILY PRN [place] CONSTIPATION; Start 05/16/17 at 00:30 Brimonidine Tartrate (Alphagan 0.2%) 1 drop BID BOTH EYES Last administered on 05/20/17 09:21; Admin Dose 1 DROP; Start 05/16/17 at 09:00 Clopidogrel Bisulfate (plaVIX) 75 mg DAILY PO Last administered on 05/20/17 09:18; Admin Dose 75 MG; Start 05/16/17 at 09:00 Ferrous Sulfate (Ferrous Sulfate (Ec)) 325 mg DAILY PO Last administered on 09:22; Admin Dose 325 MG; Start 05/16/17 at 09:00 Magnesium Oxide (Mag-Ox 400) 400 mg BID PO Last administered on 05/20/17 09: 14; Admin Dose 400 MG; Start 05/16/17 at 09:00 Nitroglycerin (Nitroglycerin (Sl Tab) 0.4 Mg) 1 tab Q5M PRN SL ANGINA; Start 05/16/17 at 00:30 Sildenafil Citrate (Revatio) 20 mg TID PO Last administered on 05/20/17 09:15 ; Admin Dose 20 MG; Start 05/16/17 at 09:00 Carvedilol (Coreg) 3.125 mg BID PO Last administered on 05/20/17 09:16; Admin Dose 3.125 MG; Start 05/16/17 at 21:00 Calcium/Vitamin D (Oyster Shell/ Vit-D (500/200)) 1 tab DAILY PO Last administered on 05/20/17 09:15; Admin Dose 1 TAB; Start 05/17/17 at 09:00 Mupirocin (Bactroban) 1 applic BID TOP Last administered on 05/20/17 09:22; Admin Dose 1 APPLIC; Start 05/17/17 at 15:00 Furosemide (Lasix) 40 mg DAILY IV Last administered on 05/20/17 09:14; Admin Dose 40 MG; Start 05/20/17 at 09:00 Benazepril HCl (Lotensin) 5 mg DAILY PO ; Start 05/21/17 at 12:00 KENNY VENEGAS M.D. May 20, 2017 14:09
[2017-05-20] MEDS: ATORVASTATIN 20 MG TAB PO SCH (21:26)
[2017-05-21] VITALS (11 sets, daily range): BP systolic 106–117; BP diastolic 55–66; PULSE 69–75; RESP 18–66
[2017-05-21] MEDS: ALBUTEROL/IPRATROPIUM (NEB) 3 ML AMP INH SCH ×4 (01:58→20:41)
[2017-05-21] MEDS: LEVOTHYROXINE 50 MCG TAB PO SCH (06:14)
--- NOTE | 2017-05-21 08:19 | RADRPT ---
PROCEDURE: XR Chest. CLINICAL INDICATION: Shortness of breath. TECHNIQUE: Single frontal view. COMPARISON: 05/19/2017. FINDINGS: There is air space disease at the lung bases with right worse than left, unchanged. The lungs are ot herwise clear. The heart is enlarged. There is calcification in the aorta consistent with atherosclerosis. There is no pleural effusion. There is no pneumothorax. IMPRESSION: 1. No change from 05/19/2017. RPTAT: QQ .Manjit Lobato MD, Date Time Electronically viewed and signed by .Manjit Lobato MD, MD on 05/21/2017 08:19 .R/
[2017-05-21] MEDS: CALCIUM/VITAMIN D (500/200) TAB PO SCH (09:50)
[2017-05-21] MEDS: MAGNESIUM OXIDE 400 MG TAB PO SCH ×2 (09:50→21:44)
[2017-05-21] MEDS: FERROUS SULFATE (EC) 325 MG TAB PO SCH (09:50)
[2017-05-21] MEDS: CLOPIDOGREL 75 MG TAB PO SCH (09:51)
[2017-05-21] MEDS: FAMOTIDINE 20 MG TAB PO SCH (09:51)
[2017-05-21] MEDS: AMIODARONE 200 MG TAB PO SCH (09:52)
[2017-05-21] MEDS: BRIMONIDINE 0.2% 5 ML BTL BOTH EYES SCH ×2 (09:53→21:43)
[2017-05-21] MEDS: MUPIROCIN 2% 22 GM OINT TOP SCH ×2 (09:53→21:43)
[2017-05-21] MEDS: ASPIRIN (EC) 81 MG TAB PO SCH (09:53)
[2017-05-21] MEDS: SILDENAFIL 20 MG TAB PO SCH ×3 (09:54→21:00)
[2017-05-21] MEDS: FUROSEMIDE 40 MG INJ IV SCH ×2 (09:54→18:11)
--- NOTE | 2017-05-21 12:06 | CONS ---
Date/Time of Note Date/Time of Note DATE: 05/21/17 TIME: 12:04 Assessment/Plan Assessment/Plan Chief Complaint/Hosp Course IMPRESSION: 1. Congestive heart failure exacerbation, diastolic, acute on chronic. 2. Mitral regurgitation, severe. 3. Tricuspid regurgitation, moderate to severe. 4. Aortic stenosis, moderate to severe followed by echo, visually looks more moderate. The mitral valve area was severe. 5. History of percutaneous transluminal coronary angioplasty and stent placement to right coronary artery most recently 09/2016. 6. Pleural effusion status post thoracentesis. 7. Hypernatremia-resolved 8. Anemia. Recc: -Tele -serial ecg's -Continue asa/plavix -Continue benazepril/coreg -Continue amio -Continue lasix diuresis Problems: Consultation Date/Type/Reason Admit Date/Time May 15, 2017 at 22:28 Initial Consult Date 05/17/17 Type of Consultation: cardiology Reason for Consultation chf Referring Provider: SPEEDY YOST MD Exam/Review of Systems Vital Signs Vitals Vital Signs Date Time Temp Pulse Resp B/P Pulse Ox O2 Delivery O2 Flow Rate FiO2 05/21/17 11:57 98.5 70 22 106/56 94 05/21/17 08:06 Nasal Cannula 2.0 05/18/17 17:05 28 Intake and Output 05/20/17 05/20/17 05/21/17 15:00 23:00 07:00 Intake Total 450 ml 360 ml 300 ml Output Total 500 ml 400 ml 550 ml Balance -50 ml -40 ml -250 ml Exam Review of Systems: CONSTITUTIONAL: No fevers, chills. PULMONARY: No sob CARDIOVASCULAR: No chest pain/palpitations GASTROINTESTINAL: No nausea/vomiting. GENITOURINARY: No hematuria/dysuria. MUSCULOSKELETAL: No myagias/arthalgias. PSYCHIATRIC: The patient denies depression. NEUROLOGIC: No weakness Constitutional: alert, other (lethrgic) Psych: no complaints Head: normocephalic ENMT: mucosa pink and moist Neck: jvd (9 cm water), supple Respiratory: diminished breath sounds (at bases/b) Cardiovascular: regular rate and rhythm Gastrointestinal: non-tender, soft Musculoskeletal: muscle tone (normal) Extremities: edema (none) Neurological: lethargic, other (no focal deficits) Results Result Diagram: 05/20/1752105/20/17521 Medications Medications Current Medications Ondansetron HCl (Zofran Inj) 4 mg Q6H PRN IV NAUSEA AND/OR VOMITING; Start at 00:00 Acetaminophen (Tylenol Tab) 650 mg Q6H PRN PO PAIN LEVEL 1-3 OR FEVER Last administered on 05/17/17 21:44; Admin Dose 650 MG; Start 05/16/17 at 00:00 Acetaminophen/ Hydrocodone Bitart ([place] (5/325)) 1 tab Q6H PRN PO MODERATE PAIN LEVEL 4-6; Start 05/16/17 at 00:00 Docusate Sodium (Colace) 100 mg Q12H PRN PO CONSTIPATION; Start 05/16/17 at 00 :00 Zolpidem Tartrate (Ambien) 5 mg QHS PRN PO SLEEP; Start 05/16/17 at 00:00 Famotidine (Pepcid) 20 mg DAILY PO Last administered on 05/21/17 09:51; Admin Dose 20 MG; Start 05/16/17 at 09:00 Acetaminophen (Tylenol Tab) 650 mg Q4H PRN PO NON-CARDIAC PAIN LEVEL 1-3; Start 05/16/17 at 00:30 Amiodarone HCl (Cordarone) 100 mg DAILY PO Last administered on 05/21/17 09: 52; Admin Dose 100 MG; Start 05/16/17 at 09:00 Aspirin (Halfprin) 81 mg DAILY PO Last administered on 05/21/17 09:53; Admin Dose 81 MG; Start 05/16/17 at 09:00 Atorvastatin Calcium (Lipitor) 20 mg HS PO Last administered on 05/20/17 21: 26; Admin Dose 20 MG; Start 05/16/17 at 21:00 Bisacodyl (Dulcolax Supp) 10 mg DAILY PRN [place] CONSTIPATION; Start 05/16/17 at 00:30 Brimonidine Tartrate (Alphagan 0.2%) 1 drop BID BOTH EYES Last administered on 05/21/17 09:53; Admin Dose 1 DROP; Start 05/16/17 at 09:00 Clopidogrel Bisulfate (plaVIX) 75 mg DAILY PO Last administered on 05/21/17 09:51; Admin Dose 75 MG; Start 05/16/17 at 09:00 Ferrous Sulfate (Ferrous Sulfate (Ec)) 325 mg DAILY PO Last administered on 09:50; Admin Dose 325 MG; Start 05/16/17 at 09:00 Magnesium Oxide (Mag-Ox 400) 400 mg BID PO Last administered on 05/21/17 09: 50; Admin Dose 400 MG; Start 05/16/17 at 09:00 Nitroglycerin (Nitroglycerin (Sl Tab) 0.4 Mg) 1 tab Q5M PRN SL ANGINA; Start 05/16/17 at 00:30 Sildenafil Citrate (Revatio) 20 mg TID PO Last administered on 05/21/17 09:54 ; Admin Dose 20 MG; Start 05/16/17 at 09:00 Carvedilol (Coreg) 3.125 mg BID PO Last administered on 05/21/17 09:52; Admin Dose 3.125 MG; Start 05/16/17 at 21:00 Calcium/Vitamin D (Oyster Shell/ Vit-D (500/200)) 1 tab DAILY PO Last administered on 05/21/17 09:50; Admin Dose 1 TAB; Start 05/17/17 at 09:00 Mupirocin (Bactroban) 1 applic BID TOP Last administered on 05/21/17 09:53; Admin Dose 1 APPLIC; Start 05/17/17 at 15:00 Furosemide (Lasix) 40 mg DAILY IV Last administered on 05/21/17 09:54; Admin Dose 40 MG; Start 05/20/17 at 09:00 Benazepril HCl (Lotensin) 5 mg DAILY PO ; Start 05/21/17 at 12:00 HANNAH COLUNGA May 21, 2017 12:06
--- NOTE | 2017-05-21 12:29 | CONS ---
Date/Time of Note Date/Time of Note DATE: 05/21/17 TIME: 12:27 Consult Date/Type/Reason Admit Date/Time May 15, 2017 at 22:28 Initial Consult Date 05/17/17 Type of Consultation: Pulmonary Ordering Provider: SPEEDY YOST MD Subjective Patient comfortable this morning Objective Vital Signs Date Time Temp Pulse Resp B/P Pulse Ox O2 Delivery O2 Flow Rate FiO2 05/21/17 11:57 98.5 70 22 106/56 94 05/21/17 08:06 Nasal Cannula 2.0 05/18/17 17:05 28 Intake and Output 05/20/17 05/20/17 05/21/17 15:00 23:00 07:00 Intake Total 450 ml 360 ml 300 ml Output Total 500 ml 400 ml 550 ml Balance -50 ml -40 ml -250 ml Exam GENERAL: Elderly appearing lady comfortable at rest VITAL SIGNS: per chart NECK: Supple. No JVD or lymphadenopathy. CARDIAC EXAM: S1, S2. 2 out of 6 systolic ejection murmur. CHEST: Diminished air entry both lung bases. ABDOMEN: Soft, nontender. No guarding or rebound. EXTREMITIES: No cyanosis, clubbing or edema. NEUROLOGIC: Generalized weakness. No focal deficits. Results/Medications Result Diagram: 05/20/1752105/20/17521 Medications Current Medications Ondansetron HCl (Zofran Inj) 4 mg Q6H PRN IV NAUSEA AND/OR VOMITING; Start at 00:00 Acetaminophen (Tylenol Tab) 650 mg Q6H PRN PO PAIN LEVEL 1-3 OR FEVER Last administered on 05/17/17 21:44; Admin Dose 650 MG; Start 05/16/17 at 00:00 Acetaminophen/ Hydrocodone Bitart ([place] (5/325)) 1 tab Q6H PRN PO MODERATE PAIN LEVEL 4-6; Start 05/16/17 at 00:00 Docusate Sodium (Colace) 100 mg Q12H PRN PO CONSTIPATION; Start 05/16/17 at 00 :00 Zolpidem Tartrate (Ambien) 5 mg QHS PRN PO SLEEP; Start 05/16/17 at 00:00 Famotidine (Pepcid) 20 mg DAILY PO Last administered on 05/21/17 09:51; Admin Dose 20 MG; Start 05/16/17 at 09:00 Acetaminophen (Tylenol Tab) 650 mg Q4H PRN PO NON-CARDIAC PAIN LEVEL 1-3; Start 05/16/17 at 00:30 Amiodarone HCl (Cordarone) 100 mg DAILY PO Last administered on 05/21/17 09: 52; Admin Dose 100 MG; Start 05/16/17 at 09:00 Aspirin (Halfprin) 81 mg DAILY PO Last administered on 05/21/17 09:53; Admin Dose 81 MG; Start 05/16/17 at 09:00 Atorvastatin Calcium (Lipitor) 20 mg HS PO Last administered on 05/20/17 21: 26; Admin Dose 20 MG; Start 05/16/17 at 21:00 Bisacodyl (Dulcolax Supp) 10 mg DAILY PRN [place] CONSTIPATION; Start 05/16/17 at 00:30 Brimonidine Tartrate ([place] 0.2%) 1 drop BID BOTH EYES Last administered on 05/21/17 09:53; Admin Dose 1 DROP; Start 05/16/17 at 09:00 Clopidogrel Bisulfate (plaVIX) 75 mg DAILY PO Last administered on 05/21/17 09:51; Admin Dose 75 MG; Start 05/16/17 at 09:00 Ferrous Sulfate (Ferrous Sulfate (Ec)) 325 mg DAILY PO Last administered on 09:50; Admin Dose 325 MG; Start 05/16/17 at 09:00 Magnesium Oxide (Mag-Ox 400) 400 mg BID PO Last administered on 05/21/17 09: 50; Admin Dose 400 MG; Start 05/16/17 at 09:00 Nitroglycerin (Nitroglycerin (Sl Tab) 0.4 Mg) 1 tab Q5M PRN SL ANGINA; Start 05/16/17 at 00:30 Sildenafil Citrate (Revatio) 20 mg TID PO Last administered on 05/21/17 09:54 ; Admin Dose 20 MG; Start 05/16/17 at 09:00 Carvedilol (Coreg) 3.125 mg BID PO Last administered on 05/21/17 09:52; Admin Dose 3.125 MG; Start 05/16/17 at 21:00 Calcium/Vitamin D (Oyster Shell/ Vit-D (500/200)) 1 tab DAILY PO Last administered on 05/21/17 09:50; Admin Dose 1 TAB; Start 05/17/17 at 09:00 Mupirocin (Bactroban) 1 applic BID TOP Last administered on 05/21/17 09:53; Admin Dose 1 APPLIC; Start 05/17/17 at 15:00 Benazepril HCl (Lotensin) 5 mg DAILY PO ; Start 05/21/17 at 12:00 Assessment/Plan Chief Complaint/Hosp Course Assessment 1. Hypoxemic respiratory failure secondary to pleural effusion and congestive cardiac failure repeat chest x-ray shows ongoing congestive cardiac failure and recurrent pleural effusions 2. Pleural effusion likely secondary to heart failure status post thoracentesis 3. Severe aortic stenosis 4. Pulmonary hypertension Plan 1. Continue gentle diuresis 2. Aspiration precautions 3. [facility] Consider discharge planning Problems: PONCHO DE SANTIAGO [facility] May 21, 2017 12:29
--- NOTE | 2017-05-21 12:29 | CONS ---
Date/Time of Note Date/Time of Note DATE: 05/21/17 TIME: 12:27 Consult Date/Type/Reason Admit Date/Time May 15, 2017 at 22:28 Initial Consult Date 05/17/17 Type of Consultation: Pulmonary Ordering Provider: SPEEDY YOST MD Subjective Patient comfortable this morning Objective Vital Signs Date Time Temp Pulse Resp B/P Pulse Ox O2 Delivery O2 Flow Rate FiO2 05/21/17 11:57 98.5 70 22 106/56 94 05/21/17 08:06 Nasal Cannula 2.0 05/18/17 17:05 28 Intake and Output 05/20/17 05/20/17 05/21/17 15:00 23:00 07:00 Intake Total 450 ml 360 ml 300 ml Output Total 500 ml 400 ml 550 ml Balance -50 ml -40 ml -250 ml Exam GENERAL: Elderly appearing lady comfortable at rest VITAL SIGNS: per chart NECK: Supple. No JVD or lymphadenopathy. CARDIAC EXAM: S1, S2. 2 out of 6 systolic ejection murmur. CHEST: Diminished air entry both lung bases. ABDOMEN: Soft, nontender. No guarding or rebound. EXTREMITIES: No cyanosis, clubbing or edema. NEUROLOGIC: Generalized weakness. No focal deficits. Results/Medications Result Diagram: 05/20/1752105/20/17521 Medications Current Medications Ondansetron HCl (Zofran Inj) 4 mg Q6H PRN IV NAUSEA AND/OR VOMITING; Start at 00:00 Acetaminophen (Tylenol Tab) 650 mg Q6H PRN PO PAIN LEVEL 1-3 OR FEVER Last administered on 05/17/17 21:44; Admin Dose 650 MG; Start 05/16/17 at 00:00 Acetaminophen/ Hydrocodone Bitart ([place] (5/325)) 1 tab Q6H PRN PO MODERATE PAIN LEVEL 4-6; Start 05/16/17 at 00:00 Docusate Sodium (Colace) 100 mg Q12H PRN PO CONSTIPATION; Start 05/16/17 at 00 :00 Zolpidem Tartrate (Ambien) 5 mg QHS PRN PO SLEEP; Start 05/16/17 at 00:00 Famotidine (Pepcid) 20 mg DAILY PO Last administered on 05/21/17 09:51; Admin Dose 20 MG; Start 05/16/17 at 09:00 Acetaminophen (Tylenol Tab) 650 mg Q4H PRN PO NON-CARDIAC PAIN LEVEL 1-3; Start 05/16/17 at 00:30 Amiodarone HCl (Cordarone) 100 mg DAILY PO Last administered on 05/21/17 09: 52; Admin Dose 100 MG; Start 05/16/17 at 09:00 Aspirin (Halfprin) 81 mg DAILY PO Last administered on 05/21/17 09:53; Admin Dose 81 MG; Start 05/16/17 at 09:00 Atorvastatin Calcium (Lipitor) 20 mg HS PO Last administered on 05/20/17 21: 26; Admin Dose 20 MG; Start 05/16/17 at 21:00 Bisacodyl (Dulcolax Supp) 10 mg DAILY PRN [place] CONSTIPATION; Start 05/16/17 at 00:30 Brimonidine Tartrate ([place]ph[place] 0.2%) 1 drop BID BOTH EYES Last administered on 05/21/17 09:53; Admin Dose 1 DROP; Start 05/16/17 at 09:00 Clopidogrel Bisulfate (plaVIX) 75 mg DAILY PO Last administered on 05/21/17 09:51; Admin Dose 75 MG; Start 05/16/17 at 09:00 Ferrous Sulfate (Ferrous Sulfate (Ec)) 325 mg DAILY PO Last administered on 09:50; Admin Dose 325 MG; Start 05/16/17 at 09:00 Magnesium Oxide (Mag-Ox 400) 400 mg BID PO Last administered on 05/21/17 09: 50; Admin Dose 400 MG; Start 05/16/17 at 09:00 Nitroglycerin (Nitroglycerin (Sl Tab) 0.4 Mg) 1 tab Q5M PRN SL ANGINA; Start 05/16/17 at 00:30 Sildenafil Citrate (Revatio) 20 mg TID PO Last administered on 05/21/17 09:54 ; Admin Dose 20 MG; Start 05/16/17 at 09:00 Carvedilol (Coreg) 3.125 mg BID PO Last administered on 05/21/17 09:52; Admin Dose 3.125 MG; Start 05/16/17 at 21:00 Calcium/Vitamin D (Oyster Shell/ Vit-D (500/200)) 1 tab DAILY PO Last administered on 05/21/17 09:50; Admin Dose 1 TAB; Start 05/17/17 at 09:00 Mupirocin (Bactroban) 1 applic BID TOP Last administered on 05/21/17 09:53; Admin Dose 1 APPLIC; Start 05/17/17 at 15:00 Benazepril HCl (Lotensin) 5 mg DAILY PO ; Start 05/21/17 at 12:00 Assessment/Plan Chief Complaint/Hosp Course Assessment 1. Hypoxemic respiratory failure secondary to pleural effusion and congestive cardiac failure repeat chest x-ray shows ongoing congestive cardiac failure and recurrent pleural effusions 2. Pleural effusion likely secondary to heart failure status post thoracentesis 3. Severe aortic stenosis 4. Pulmonary hypertension Plan 1. Continue gentle diuresis 2. Aspiration precautions 3. Will likely require [facility] facility Consider discharge planning Problems: PONCHO DE [facility]ANTIAGO [facility], [facility] May 21, 2017 12:29
--- NOTE | 2017-05-21 12:29 | CONS ---
Date/Time of Note Date/Time of Note DATE: 05/21/17 TIME: 12:27 Consult Date/Type/Reason Admit Date/Time May 15, 2017 at 22:28 Initial Consult Date 05/17/17 Type of Consultation: Pulmonary Ordering Provider: SPEEDY YOST MD Subjective Patient comfortable this morning Objective Vital Signs Date Time Temp Pulse Resp B/P Pulse Ox O2 Delivery O2 Flow Rate FiO2 05/21/17 11:57 98.5 70 22 106/56 94 05/21/17 08:06 Nasal Cannula 2.0 05/18/17 17:05 28 Intake and Output 05/20/17 05/20/17 05/21/17 15:00 23:00 07:00 Intake Total 450 ml 360 ml 300 ml Output Total 500 ml 400 ml 550 ml Balance -50 ml -40 ml -250 ml Exam GENERAL: Elderly appearing lady comfortable at rest VITAL SIGNS: per chart NECK: Supple. No JVD or lymphadenopathy. CARDIAC EXAM: S1, S2. 2 out of 6 systolic ejection murmur. CHEST: Diminished air entry both lung bases. ABDOMEN: Soft, nontender. No guarding or rebound. EXTREMITIES: No cyanosis, clubbing or edema. NEUROLOGIC: Generalized weakness. No focal deficits. Results/Medications Result Diagram: 05/20/1752105/20/17521 Medications Current Medications Ondansetron HCl (Zofran Inj) 4 mg Q6H PRN IV NAUSEA AND/OR VOMITING; Start at 00:00 Acetaminophen (Tylenol Tab) 650 mg Q6H PRN PO PAIN LEVEL 1-3 OR FEVER Last administered on 05/17/17 21:44; Admin Dose 650 MG; Start 05/16/17 at 00:00 Acetaminophen/ Hydrocodone Bitart ([place] (5/325)) 1 tab Q6H PRN PO MODERATE PAIN LEVEL 4-6; Start 05/16/17 at 00:00 Docusate Sodium (Colace) 100 mg Q12H PRN PO CONSTIPATION; Start 05/16/17 at 00 :00 Zolpidem Tartrate (Ambien) 5 mg QHS PRN PO SLEEP; Start 05/16/17 at 00:00 Famotidine (Pepcid) 20 mg DAILY PO Last administered on 05/21/17 09:51; Admin Dose 20 MG; Start 05/16/17 at 09:00 Acetaminophen (Tylenol Tab) 650 mg Q4H PRN PO NON-CARDIAC PAIN LEVEL 1-3; Start 05/16/17 at 00:30 Amiodarone HCl (Cordarone) 100 mg DAILY PO Last administered on 05/21/17 09: 52; Admin Dose 100 MG; Start 05/16/17 at 09:00 Aspirin (Halfprin) 81 mg DAILY PO Last administered on 05/21/17 09:53; Admin Dose 81 MG; Start 05/16/17 at 09:00 Atorvastatin Calcium (Lipitor) 20 mg HS PO Last administered on 05/20/17 21: 26; Admin Dose 20 MG; Start 05/16/17 at 21:00 Bisacodyl (Dulcolax Supp) 10 mg DAILY PRN [place] CONSTIPATION; Start 05/16/17 at 00:30 Brimonidine Tartrate (Alphagan 0.2%) 1 drop BID BOTH EYES Last administered on 05/21/17 09:53; Admin Dose 1 DROP; Start 05/16/17 at 09:00 Clopidogrel Bisulfate (plaVIX) 75 mg DAILY PO Last administered on 05/21/17 09:51; Admin Dose 75 MG; Start 05/16/17 at 09:00 Ferrous Sulfate (Ferrous Sulfate (Ec)) 325 mg DAILY PO Last administered on 09:50; Admin Dose 325 MG; Start 05/16/17 at 09:00 Magnesium Oxide (Mag-Ox 400) 400 mg BID PO Last administered on 05/21/17 09: 50; Admin Dose 400 MG; Start 05/16/17 at 09:00 Nitroglycerin (Nitroglycerin (Sl Tab) 0.4 Mg) 1 tab Q5M PRN SL ANGINA; Start 05/16/17 at 00:30 Sildenafil Citrate (Revatio) 20 mg TID PO Last administered on 05/21/17 09:54 ; Admin Dose 20 MG; Start 05/16/17 at 09:00 Carvedilol (Coreg) 3.125 mg BID PO Last administered on 05/21/17 09:52; Admin Dose 3.125 MG; Start 05/16/17 at 21:00 Calcium/Vitamin D (Oyster Shell/ Vit-D (500/200)) 1 tab DAILY PO Last administered on 05/21/17 09:50; Admin Dose 1 TAB; Start 05/17/17 at 09:00 Mupirocin (Bactroban) 1 applic BID TOP Last administered on 05/21/17 09:53; Admin Dose 1 APPLIC; Start 05/17/17 at 15:00 Benazepril HCl (Lotensin) 5 mg DAILY PO ; Start 05/21/17 at 12:00 Assessment/Plan Chief Complaint/Hosp Course Assessment 1. Hypoxemic respiratory failure secondary to pleural effusion and congestive cardiac failure repeat chest x-ray shows ongoing congestive cardiac failure and recurrent pleural effusions 2. Pleural effusion likely secondary to heart failure status post thoracentesis 3. Severe aortic stenosis 4. Pulmonary hypertension Plan 1. Continue gentle diuresis 2. Aspiration precautions 3. Will likely require assisted facility Consider discharge planning Problems: PON[facility] DE SANTIAGO [facility], [facility] May 21, 2017 12:29
[2017-05-21] MEDS: BENAZEPRIL 5 MG TAB PO SCH (12:59)
--- NOTE | 2017-05-21 17:15 | PN ---
Date/Time of Note Date/Time of Note DATE: 05/21/17 TIME: 17:13 Assessment/Plan VTE Prophylaxis VTE Prophylaxis Intervention: other Lines/Catheters IV Catheter Type (from Nrsg): [place] Urinary Cath still in place: Yes Reason Cath still needed: other (indicate) Assessment/Plan Chief Complaint/Hosp Course 1. Congestive heart failure exacerbation with elevated BNP BETTER 2. Bilateral pleural effusions, S/P THORACENTESIS 3. History of coronary artery disease status post angioplasty. 4. History of atrial fibrillation, on amiodarone. 5. Hypertension 6. Hyperlipidemia. 7. History of peripheral vascular disease. 8. History of gastroesophageal reflux disease. 9. History of CKD insufficiency. 10. Anemia. 11. Cardiomegaly. 12. Glaucoma. PLAN DIURETIC Problems: Subjective 24 Hr Interval Summary Subjective hx not possible: other (SOB BETTER) Exam/Review of Systems Vital Signs Vitals Vital Signs Date Time Temp Pulse Resp B/P Pulse Ox O2 Delivery O2 Flow Rate FiO2 05/21/17 16:14 98.2 64 66 113/59 92 05/21/17 13:17 2.0 05/21/17 13:17 Nasal Cannula 05/18/17 17:05 28 Intake and Output 05/20/17 05/20/17 05/21/17 15:00 23:00 07:00 Intake Total 450 ml 360 ml 300 ml Output Total 500 ml 400 ml 550 ml Balance -50 ml -40 ml -250 ml Exam Respiratory: clear to auscultation Cardiovascular: regular rate and rhythm Gastrointestinal: bowel sounds (+), soft Extremities: No edema Results Result Diagram: 05/20/1752105/20/17521 Medications Medications Current Medications Ondansetron HCl (Zofran Inj) 4 mg Q6H PRN IV NAUSEA AND/OR VOMITING; Start at 00:00 Acetaminophen (Tylenol Tab) 650 mg Q6H PRN PO PAIN LEVEL 1-3 OR FEVER Last administered on 05/17/17t 21:44; Admin Dose 650 MG; Start 05/16/17 at 00:00 Acetaminophen/ Hydrocodone Bitart ([place] (5/325)) 1 tab Q6H PRN PO MODERATE PAIN LEVEL 4-6; Start 05/16/17 at 00:00 Docusate Sodium (Colace) 100 mg Q12H PRN PO CONSTIPATION; Start 05/16/17 at 00 :00 Zolpidem Tartrate (Ambien) 5 mg QHS PRN PO SLEEP; Start 05/16/17 at 00:00 Famotidine (Pepcid) 20 mg DAILY PO Last administered on 05/21/17 09:51; Admin Dose 20 MG; Start 05/16/17 at 09:00 Acetaminophen (Tylenol Tab) 650 mg Q4H PRN PO NON-CARDIAC PAIN LEVEL 1-3; Start 05/16/17 at 00:30 Amiodarone HCl (Cordarone) 100 mg DAILY PO Last administered on 05/21/17 09: 52; Admin Dose 100 MG; Start 05/16/17 at 09:00 Aspirin (Halfprin) 81 mg DAILY PO Last administered on 05/21/17 09:53; Admin Dose 81 MG; Start 05/16/17 at 09:00 Atorvastatin Calcium (Lipitor) 20 mg HS PO Last administered on 05/20/17 21: 26; Admin Dose 20 MG; Start 05/16/17 at 21:00 Bisacodyl (Dulcolax Supp) 10 mg DAILY PRN [place]STIPATION; Start 05/16/17 at 00:30 Brimonidine Tartrate (Alph[place] 0.2%) 1 drop BID BOTH EYES Last administered on 05/21/17 09:53; Admin Dose 1 DROP; Start 05/16/17 at 09:00 Clopidogrel Bisulfate (plaVIX) 75 mg DAILY PO Last administered on 05/21/17 09:51; Admin Dose 75 MG; Start 05/16/17 at 09:00 Ferrous Sulfate (Ferrous Sulfate (Ec)) 325 mg DAILY PO Last administered on 09:50; Admin Dose 325 MG; Start 05/16/17 at 09:00 Magnesium Oxide (Mag-Ox 400) 400 mg BID PO Last administered on 05/21/17 09: 50; Admin Dose 400 MG; Start 05/16/17 at 09:00 Nitroglycerin (Nitroglycerin (Sl Tab) 0.4 Mg) 1 tab Q5M PRN SL ANGINA; Start 05/16/17 at 00:30 Sildenafil Citrate (Revatio) 20 mg TID PO Last administered on 05/21/17 12:58 ; Admin Dose 20 MG; Start 05/16/17 at 09:00 Carvedilol (Coreg) 3.125 mg BID PO Last administered on 05/21/17 09:52; Admin Dose 3.125 MG; Start 05/16/17 at 21:00 Calcium/Vitamin D (Oyster Shell/ Vit-D (500/200)) 1 tab DAILY PO Last administered on 05/21/17 09:50; Admin Dose 1 TAB; Start 05/17/17 at 09:00 Mupirocin (Bactroban) 1 applic BID TOP Last administered on 05/21/17 09:53; Admin Dose 1 APPLIC; Start 05/17/17 at 15:00 Benazepril HCl (Lotensin) 5 mg DAILY PO Last administered on 05/21/17 12:59; Admin Dose 5 MG; Start 05/21/17 at 12:00 CHANTEL COLLINS MD May 21, 2017 17:15
[2017-05-21] MEDS: ATORVASTATIN 20 MG TAB PO SCH (21:46)
[2017-05-22] VITALS (10 sets, daily range): BP systolic 88–117; BP diastolic 47–65; PULSE 60–72; RESP 16–19
[2017-05-22] MEDS: ALBUTEROL/IPRATROPIUM (NEB) 3 ML AMP INH SCH ×3 (02:26→14:37)
[2017-05-22] MEDS: FUROSEMIDE 40 MG INJ IV SCH ×2 (06:17→18:00)
[2017-05-22] MEDS: LEVOTHYROXINE 50 MCG TAB PO SCH (06:28)
[2017-05-22] MEDS: MUPIROCIN 2% 22 GM OINT TOP SCH (08:48)
[2017-05-22] MEDS: BRIMONIDINE 0.2% 5 ML BTL BOTH EYES SCH (08:49)
[2017-05-22] MEDS: BENAZEPRIL 5 MG TAB PO SCH (08:50)
[2017-05-22] MEDS: ASPIRIN (EC) 81 MG TAB PO SCH (08:50)
[2017-05-22] MEDS: CLOPIDOGREL 75 MG TAB PO SCH (08:51)
[2017-05-22] MEDS: AMIODARONE 200 MG TAB PO SCH (08:51)
[2017-05-22] MEDS: SILDENAFIL 20 MG TAB PO SCH ×2 (08:52→12:31)
[2017-05-22] MEDS: FAMOTIDINE 20 MG TAB PO SCH (08:54)
[2017-05-22] MEDS: CALCIUM/VITAMIN D (500/200) TAB PO SCH (08:55)
[2017-05-22] MEDS: MAGNESIUM OXIDE 400 MG TAB PO SCH (08:55)
[2017-05-22] MEDS: FERROUS SULFATE (EC) 325 MG TAB PO SCH (08:59)
--- NOTE | 2017-05-22 11:41 | CONS ---
Date/Time of Note Date/Time of Note DATE: 05/22/17 TIME: 11:35 Consult Date/Type/Reason Admit Date/Time May 15, 2017 at 22:28 Initial Consult Date 05/17/17 Type of Consultation: Pulmonary Ordering Provider: SPEEDY YOST MD Subjective Comfortable this morning. Objective Vital Signs Date Time Temp Pulse Resp B/P Pulse Ox O2 Delivery O2 Flow Rate FiO2 05/22/17 11:26 97.8 69 16 88/47 100 05/22/17 07:55 Nasal Cannula 2.0 05/18/17 17:05 28 Intake and Output 05/21/17 05/21/17 05/22/17 15:00 23:00 07:00 Intake Total 520 ml Output Total 450 ml Balance 70 ml Exam GENERAL: Elderly appearing lady comfortable at rest VITAL SIGNS: per chart NECK: Supple. No JVD or lymphadenopathy. CARDIAC EXAM: S1, S2. 2 out of 6 systolic ejection murmur. CHEST: Diminished air entry both lung bases. ABDOMEN: Soft, nontender. No guarding or rebound. EXTREMITIES: No cyanosis, clubbing or edema. NEUROLOGIC: Generalized weakness. No focal deficits. Results/Medications Result Diagram: 05/20/1752105/20/17521 Medications Current Medications Ondansetron HCl (Zofran Inj) 4 mg Q6H PRN IV NAUSEA AND/OR VOMITING; Start at 00:00 Acetaminophen (Tylenol Tab) 650 mg Q6H PRN PO PAIN LEVEL 1-3 OR FEVER Last administered on 05/17/17 21:44; Admin Dose 650 MG; Start 05/16/17 at 00:00 Acetaminophen/ Hydrocodone Bitart ([place] (5/325)) 1 tab Q6H PRN PO MODERATE PAIN LEVEL 4-6; Start 05/16/17 at 00:00 Docusate Sodium (Colace) 100 mg Q12H PRN PO CONSTIPATION; Start 05/16/17 at 00 :00 Zolpidem Tartrate (Ambien) 5 mg QHS PRN PO SLEEP; Start 05/16/17 at 00:00 Famotidine (Pepcid) 20 mg DAILY PO Last administered on 05/22/17 08:54; Admin Dose 20 MG; Start 05/16/17 at 09:00 Acetaminophen (Tylenol Tab) 650 mg Q4H PRN PO NON-CARDIAC PAIN LEVEL 1-3; Start 05/16/17 at 00:30 Amiodarone HCl (Cordarone) 100 mg DAILY PO Last administered on 05/22/17 08: 51; Admin Dose 100 MG; Start 05/16/17 at 09:00 Aspirin (Halfprin) 81 mg DAILY PO Last administered on 05/22/17 08:50; Admin Dose 81 MG; Start 05/16/17 at 09:00 Atorvastatin Calcium (Lipitor) 20 mg HS PO Last administered on 05/21/17 21: 46; Admin Dose 20 MG; Start 05/16/17 at 21:00 Bisacodyl (Dulcolax Supp) 10 mg DAILY PRN [place] CONSTIPATION; Start 05/16/17 at 00:30 Brimonidine Tartrate ([place] 0.2%) 1 drop BID BOTH EYES Last administered on 05/22/17 08:49; Admin Dose 1 DROP; Start 05/16/17 at 09:00 Clopidogrel Bisulfate (plaVIX) 75 mg DAILY PO Last administered on 05/22/17 08:51; Admin Dose 75 MG; Start 05/16/17 at 09:00 Ferrous Sulfate (Ferrous Sulfate (Ec)) 325 mg DAILY PO Last administered on 08:59; Admin Dose 325 MG; Start 05/16/17 at 09:00 Magnesium Oxide (Mag-Ox 400) 400 mg BID PO Last administered on 05/22/17 08: 55; Admin Dose 400 MG; Start 05/16/17 at 09:00 Nitroglycerin (Nitroglycerin (Sl Tab) 0.4 Mg) 1 tab Q5M PRN SL ANGINA; Start 05/16/17 at 00:30 Sildenafil Citrate (Revatio) 20 mg TID PO Last administered on 05/22/17 08:52 ; Admin Dose 20 MG; Start 05/16/17 at 09:00 Carvedilol (Coreg) 3.125 mg BID PO Last administered on 05/22/17 08:51; Admin Dose 3.125 MG; Start 05/16/17 at 21:00 Calcium/Vitamin D ([place]yster Shell/ Vit-D (500/200)) 1 tab DAILY PO Last administered on 05/22/17 08:55; Admin Dose 1 TAB; Start 05/17/17 at 09:00 Mupirocin (Bactroban) 1 applic BID TOP Last administered on 05/22/17 08:48; Admin Dose 1 APPLIC; Start 05/17/17 at 15:00 Benazepril HCl (Lotensin) 5 mg DAILY PO Last administered on 05/22/17 08:50; Admin Dose 5 MG; Start 05/21/17 at 12:00 Assessment/Plan Chief Complaint/Hosp Course Assessment 1. Hypoxemic respiratory failure secondary to pleural effusion and congestive cardiac failure repeat chest x-ray shows ongoing congestive cardiac failure and recurrent pleural effusions 2. Pleural effusion likely secondary to heart failure status post thoracentesis 3. Severe aortic stenosis 4. Pulmonary hypertension Plan 1. Continue gentle diuresis 2. Aspiration precautions 3. Will likely require custodial facility Consider discharge planning Problems: PON[facility] DE [facility]ANT[facility]AGO [facility], [facility] May 22, 2017 11:41
--- NOTE | 2017-05-22 11:41 | CONS ---
Date/Time of Note Date/Time of Note DATE: 05/22/17 TIME: 11:35 Consult Date/Type/Reason Admit Date/Time May 15, 2017 at 22:28 Initial Consult Date 05/17/17 Type of Consultation: Pulmonary Ordering Provider: SPEEDY YOST MD Subjective Comfortable this morning. Objective Vital Signs Date Time Temp Pulse Resp B/P Pulse Ox O2 Delivery O2 Flow Rate FiO2 05/22/17 11:26 97.8 69 16 88/47 100 05/22/17 07:55 Nasal Cannula 2.0 05/18/17 17:05 28 Intake and Output 05/21/17 05/21/17 05/22/17 15:00 23:00 07:00 Intake Total 520 ml Output Total 450 ml Balance 70 ml Exam GENERAL: Elderly appearing lady comfortable at rest VITAL SIGNS: per chart NECK: Supple. No JVD or lymphadenopathy. CARDIAC EXAM: S1, S2. 2 out of 6 systolic ejection murmur. CHEST: Diminished air entry both lung bases. ABDOMEN: Soft, nontender. No guarding or rebound. EXTREMITIES: No cyanosis, clubbing or edema. NEUROLOGIC: Generalized weakness. No focal deficits. Results/Medications Result Diagram: 05/20/1752105/20/17521 Medications Current Medications Ondansetron HCl (Zofran Inj) 4 mg Q6H PRN IV NAUSEA AND/OR VOMITING; Start at 00:00 Acetaminophen (Tylenol Tab) 650 mg Q6H PRN PO PAIN LEVEL 1-3 OR FEVER Last administered on 05/17/17 21:44; Admin Dose 650 MG; Start 05/16/17 at 00:00 Acetaminophen/ Hydrocodone Bitart ([place] (5/325)) 1 tab Q6H PRN PO MODERATE PAIN LEVEL 4-6; Start 05/16/17 at 00:00 Docusate Sodium (Colace) 100 mg Q12H PRN PO CONSTIPATION; Start 05/16/17 at 00 :00 Zolpidem Tartrate (Ambien) 5 mg QHS PRN PO SLEEP; Start 05/16/17 at 00:00 Famotidine (Pepcid) 20 mg DAILY PO Last administered on 05/22/17 08:54; Admin Dose 20 MG; Start 05/16/17 at 09:00 Acetaminophen (Tylenol Tab) 650 mg Q4H PRN PO NON-CARDIAC PAIN LEVEL 1-3; Start 05/16/17 at 00:30 Amiodarone HCl (Cordarone) 100 mg DAILY PO Last administered on 05/22/17 08: 51; Admin Dose 100 MG; Start 05/16/17 at 09:00 Aspirin (Halfprin) 81 mg DAILY PO Last administered on 05/22/17 08:50; Admin Dose 81 MG; Start 05/16/17 at 09:00 Atorvastatin Calcium (Lipitor) 20 mg HS PO Last administered on 05/21/17 21: 46; Admin Dose 20 MG; Start 05/16/17 at 21:00 Bisacodyl (Dulcolax Supp) 10 mg DAILY PRN [place] CONSTIPATION; Start 05/16/17 at 00:30 Brimonidine Tartrate (Alphagan 0.2%) 1 drop BID BOTH EYES Last administered on 05/22/17 08:49; Admin Dose 1 DROP; Start 05/16/17 at 09:00 Clopidogrel Bisulfate (plaVIX) 75 mg DAILY PO Last administered on 05/22/17 08:51; Admin Dose 75 MG; Start 05/16/17 at 09:00 Ferrous Sulfate (Ferrous Sulfate (Ec)) 325 mg DAILY PO Last administered on 08:59; Admin Dose 325 MG; Start 05/16/17 at 09:00 Magnesium Oxide (Mag-Ox 400) 400 mg BID PO Last administered on 05/22/17 08: 55; Admin Dose 400 MG; Start 05/16/17 at 09:00 Nitroglycerin (Nitroglycerin (Sl Tab) 0.4 Mg) 1 tab Q5M PRN SL ANGINA; Start 05/16/17 at 00:30 Sildenafil Citrate (Revatio) 20 mg TID PO Last administered on 05/22/17 08:52 ; Admin Dose 20 MG; Start 05/16/17 at 09:00 Carvedilol (Coreg) 3.125 mg BID PO Last administered on 05/22/17 08:51; Admin Dose 3.125 MG; Start 05/16/17 at 21:00 Calcium/Vitamin D (Oyster Shell/ Vit-D (500/200)) 1 tab DAILY PO Last administered on 05/22/17 08:55; Admin Dose 1 TAB; Start 05/17/17 at 09:00 Mupirocin (Bactroban) 1 applic BID TOP Last administered on 05/22/17 08:48; Admin Dose 1 APPLIC; Start 05/17/17 at 15:00 Benazepril HCl (Lotensin) 5 mg DAILY PO Last administered on 05/22/17 08:50; Admin Dose 5 MG; Start 05/21/17 at 12:00 Assessment/Plan Chief Complaint/Hosp Course Assessment 1. Hypoxemic respiratory failure secondary to pleural effusion and congestive cardiac failure repeat chest x-ray shows ongoing congestive cardiac failure and recurrent pleural effusions 2. Pleural effusion likely secondary to heart failure status post thoracentesis 3. Severe aortic stenosis 4. Pulmonary hypertension Plan 1. Continue gentle diuresis 2. Aspiration precautions 3. Will likely require longterm facility Consider discharge planning Problems: PONCHO DE SANTIAGO MD[facility] May 22, 2017 11:41
--- NOTE | 2017-05-22 15:37 | CONS ---
Date/Time of Note Date/Time of Note DATE: 05/22/17 TIME: 15:35 Assessment/Plan Assessment/Plan Additional Assessment/Plan 1. Congestive heart failure exacerbation, diastolic, acute on chronic- euvolemic by my exam now, 2. Mitral regurgitation, severe - no intervention palnned, Rx CHf.. 3. Tricuspid regurgitation, moderate to severe. 4. Aortic stenosis, moderate to severe followed by echo, visually looks more moderate. The mitral valve area was severe - Benny Irby follows. 5. History of percutaneous transluminal coronary angioplasty and stent placement to right coronary artery most recently 09/2016. 6. Pleural effusion status post thoracentesis- better now, improved resp satys. 7. Hypernatremia-resolved 8. Anemia- no active bleeding noted. Consultation Date/Type/Reason Admit Date/Time May 15, 2017 at 22:28 Initial Consult Date 05/17/17 Type of Consultation: Pulmonary Referring Provider: SPEEDY YOST MD 24 HR Interval Summary Free Text/Dictation NO acute events - BP in good range - NO CP now. ROS: No fever, no chills, no nausea, no vomiting, no diarrhea/constipation No recent weight changes No chest pain, no PND, no orthopnea No dizziness, blurred vision No thirst, no heat or cold intolerance Exam/Review of Systems Vital Signs Vitals Vital Signs Date Time Temp Pulse Resp B/P Pulse Ox O2 Delivery O2 Flow Rate FiO2 05/22/17 12:00 67 05/22/17 11:26 97.8 16 88/47 100 05/22/17 08:00 Nasal Cannula 2.0 05/18/17 17:05 28 Intake and Output 05/21/17 05/21/17 05/22/17 15:00 23:00 07:00 Intake Total 520 ml Output Total 450 ml Balance 70 ml Exam General: WN/WD/NAD, AOx 0-1 comfortable HEENT: Unicetric/atraumatic/EOMI (does not follow commands) NECK: JVD elevated, no thyromegaly Lymph: no lymphadenopathy HEART: regular with no S3, II/ systolic murmur at apex LUNGS: Coarse sounds ABD: soft, NT, ND, +BS : Intact Neuro: non focal SKIN: chronic changes EXT: trace edema Results Result Diagram: 05/20/1752105/20/17521 Medications Medications Current Medications Ondansetron HCl (Zofran Inj) 4 mg Q6H PRN IV NAUSEA AND/OR VOMITING; Start at 00:00 Acetaminophen (Tylenol Tab) 650 mg Q6H PRN PO PAIN LEVEL 1-3 OR FEVER Last administered on 05/17/17 21:44; Admin Dose 650 MG; Start 05/16/17 at 00:00 Acetaminophen/ Hydrocodone Bitart ([place] (5/325)) 1 tab Q6H PRN PO MODERATE PAIN LEVEL 4-6; Start 05/16/17 at 00:00 Docusate Sodium (Colace) 100 mg Q12H PRN PO CONSTIPATION; Start 05/16/17 at 00 :00 Zolpidem Tartrate (Ambien) 5 mg QHS PRN PO SLEEP; Start 05/16/17 at 00:00 Famotidine (Pepcid) 20 mg DAILY PO Last administered on 05/22/17 08:54; Admin Dose 20 MG; Start 05/16/17 at 09:00 Acetaminophen (Tylenol Tab) 650 mg Q4H PRN PO NON-CARDIAC PAIN LEVEL 1-3; Start 05/16/17 at 00:30 Amiodarone HCl (Cordarone) 100 mg DAILY PO Last administered on 05/22/17 08: 51; Admin Dose 100 MG; Start 05/16/17 at 09:00 Aspirin (Halfprin) 81 mg DAILY PO Last administered on 05/22/17 08:50; Admin Dose 81 MG; Start 05/16/17 at 09:00 Atorvastatin Calcium (Lipitor) 20 mg HS PO Last administered on 05/21/17 21: 46; Admin Dose 20 MG; Start 05/16/17 at 21:00 Bisacodyl (Dulcolax Supp) 10 mg DAILY PRN [place] CONSTIPATION; Start 05/16/17 at 00:30 Brimonidine Tartrate (Alphagan 0.2%) 1 drop BID BOTH EYES Last administered on 05/22/17 08:49; Admin Dose 1 DROP; Start 05/16/17 at 09:00 Clopidogrel Bisulfate (plaVIX) 75 mg DAILY PO Last administered on 05/22/17 08:51; Admin Dose 75 MG; Start 05/16/17 at 09:00 Ferrous Sulfate (Ferrous Sulfate (Ec)) 325 mg DAILY PO Last administered on 08:59; Admin Dose 325 MG; Start 05/16/17 at 09:00 Magnesium Oxide (Mag-Ox 400) 400 mg BID PO Last administered on 05/22/17 08: 55; Admin Dose 400 MG; Start 05/16/17 at 09:00 Nitroglycerin (Nitroglycerin (Sl Tab) 0.4 Mg) 1 tab Q5M PRN SL ANGINA; Start 05/16/17 at 00:30 Sildenafil Citrate (Revatio) 20 mg TID PO Last administered on 05/22/17 08:52 ; Admin Dose 20 MG; Start 05/16/17 at 09:00 Carvedilol (Coreg) 3.125 mg BID PO Last administered on 05/22/17 08:51; Admin Dose 3.125 MG; Start 05/16/17 at 21:00 Calcium/Vitamin D (Oyster Shell/ Vit-D (500/200)) 1 tab DAILY PO Last administered on 05/22/17 08:55; Admin Dose 1 TAB; Start 05/17/17 at 09:00 Mupirocin (Bactroban) 1 applic BID TOP Last administered on 05/22/17 08:48; Admin Dose 1 APPLIC; Start 05/17/17 at 15:00 Benazepril HCl (Lotensin) 5 mg DAILY PO Last administered on 05/22/17 08:50; Admin Dose 5 MG; Start 05/21/17 at 12:00 JENNA ROCHE MD May 22, 2017 15:37
--- NOTE | 2017-05-22 15:53 | PDOCDIS ---
Discharge Instructions CONDITION Patient Condition: Stable HOME CARE INSTRUCTIONS: Special Diet: PUREED ACTIVITY: Activity Restrictions: Slowly Increase Activity FOLLOW UP/APPOINTMENTS Follow-up Plan f/u dr collins at [facility] see dr aguilar 2 wks CHANTEL COLLINS MD May 22, 2017 15:53
--- NOTE | 2017-05-22 15:53 | PDOCDIS ---
Discharge Instructions CONDITION Patient Condition: Stable HOME CARE INSTRUCTIONS: Special Diet: PUREED ACTIVITY: Activity Restrictions: Slowly Increase Activity FOLLOW UP/APPOINTMENTS Follow-up Plan f/u dr collins at [facility] see dr aguilar 2 wks CHANTEL COLLINS MD May 22, 2017 15:53
--- NOTE | 2017-05-22 15:53 | PDOCDIS ---
Discharge Instructions CONDITION Patient Condition: Stable HOME CARE INSTRUCTIONS: Special Diet: PUREED ACTIVITY: Activity Restrictions: Slowly Increase Activity FOLLOW UP/APPOINTMENTS Follow-up Plan f/u dr collins at [facility] see dr aguilar 2 wks CHANTEL COLLINS MD May 22, 2017 15:53
[2017-05-22] MEDS ORDERED: DOCU-216 PO (15:58)
[2017-05-22] MEDS ORDERED: HYDR-3498 PO (15:58)
[2017-05-22] MEDS ORDERED: FAMO20TA18 PO (15:58)
[2017-05-22] MEDS ORDERED: Furosemide IV (15:58)
[2017-05-22] MEDS ORDERED: CARV3.1260 PO (15:58)
[2017-05-22] MEDS ORDERED: ZOLP5TAB PO (15:58)
[2017-05-22] MEDS ORDERED: BENA5TAB2 PO (15:58)
--- NOTE | 2017-05-22 16:31 | PN ---
Date/Time of Note Date/Time of Note DATE: 05/22/17 TIME: 16:29 Assessment/Plan VTE Prophylaxis VTE Prophylaxis Intervention: other Lines/Catheters IV Catheter Type (from Nrsg): [place] Urinary Cath still in place: Yes Reason Cath still needed: other (indicate) Assessment/Plan Chief Complaint/Hosp Course 1. Congestive heart failure exacerbation with elevated BNP BETTER 2. Bilateral pleural effusions, S/P THORACENTESIS 3. History of coronary artery disease status post angioplasty. 4. History of atrial fibrillation, on amiodarone. 5. Hypertension 6. Hyperlipidemia. 7. History of peripheral vascular disease. 8. History of gastroesophageal reflux disease. 9. History of CKD insufficiency. 10. Anemia. 11. Cardiomegaly. 12. Glaucoma. PLAN snf Problems: Subjective 24 Hr Interval Summary Respiratory: No shortness of breath Cardiovascular: no complaints Exam/Review of Systems Vital Signs Vitals Vital Signs Date Time Temp Pulse Resp B/P Pulse Ox O2 Delivery O2 Flow Rate FiO2 05/22/17 15:54 2.0 05/22/17 15:50 97.9 76 16 99/60 100 05/22/17 14:47 Nasal Cannula 05/18/17 17:05 28 Intake and Output 05/21/17 05/21/17 05/22/17 15:00 23:00 07:00 Intake Total 520 ml Output Total 450 ml Balance 70 ml Exam Respiratory: clear to auscultation Cardiovascular: regular rate and rhythm Gastrointestinal: soft Musculoskeletal: nl extremities to inspection Extremities: normal pulses Results Result Diagram: 05/20/1752105/20/17521 Medications Medications Current Medications Ondansetron HCl (Zofran Inj) 4 mg Q6H PRN IV NAUSEA AND/OR VOMITING; Start at 00:00 Acetaminophen (Tylenol Tab) 650 mg Q6H PRN PO PAIN LEVEL 1-3 OR FEVER Last administered on 05/17/17t 21:44; Admin Dose 650 MG; Start 05/16/17 at 00:00 Acetaminophen/ Hydrocodone Bitart ([place] (5/325)) 1 tab Q6H PRN PO MODERATE PAIN LEVEL 4-6; Start 05/16/17 at 00:00 Docusate Sodium (Colace) 100 mg Q12H PRN PO CONSTIPATION; Start 05/16/17 at 00 :00 Zolpidem Tartrate (Ambien) 5 mg QHS PRN PO SLEEP; Start 05/16/17 at 00:00 Famotidine (Pepcid) 20 mg DAILY PO Last administered on 05/22/17 08:54; Admin Dose 20 MG; Start 05/16/17 at 09:00 Acetaminophen (Tylenol Tab) 650 mg Q4H PRN PO NON-CARDIAC PAIN LEVEL 1-3; Start 05/16/17 at 00:30 Amiodarone HCl (Cordarone) 100 mg DAILY PO Last administered on 05/22/17 08: 51; Admin Dose 100 MG; Start 05/16/17 at 09:00 Aspirin (Halfprin) 81 mg DAILY PO Last administered on 05/22/17 08:50; Admin Dose 81 MG; Start 05/16/17 at 09:00 Atorvastatin Calcium (Lipitor) 20 mg HS PO Last administered on 05/21/17 21: 46; Admin Dose 20 MG; Start 05/16/17 at 21:00 Bisacodyl (Dulcolax Supp) 10 mg DAILY PRN [place] CONSTIPATION; Start 05/16/17 at 00:30 Brimonidine Tartrate (Alphagan 0.2%) 1 drop BID BOTH EYES Last administered on 05/22/17 08:49; Admin Dose 1 DROP; Start 05/16/17 at 09:00 Clopidogrel Bisulfate (plaVIX) 75 mg DAILY PO Last administered on 05/22/17 08:51; Admin Dose 75 MG; Start 05/16/17 at 09:00 Ferrous Sulfate (Ferrous Sulfate (Ec)) 325 mg DAILY PO Last administered on 08:59; Admin Dose 325 MG; Start 05/16/17 at 09:00 Magnesium Oxide (Mag-Ox 400) 400 mg BID PO Last administered on 05/22/17 08: 55; Admin Dose 400 MG; Start 05/16/17 at 09:00 Nitroglycerin (Nitroglycerin (Sl Tab) 0.4 Mg) 1 tab Q5M PRN SL ANGINA; Start 05/16/17 at 00:30 Sildenafil Citrate (Revatio) 20 mg TID PO Last administered on 05/22/17 08:52 ; Admin Dose 20 MG; Start 05/16/17 at 09:00 Carvedilol (Coreg) 3.125 mg BID PO Last administered on 05/22/17 08:51; Admin Dose 3.125 MG; Start 05/16/17 at 21:00 Calcium/Vitamin D (Oyster Shell/ Vit-D (500/200)) 1 tab DAILY PO Last administered on 05/22/17 08:55; Admin Dose 1 TAB; Start 05/17/17 at 09:00 Mupirocin (Bactroban) 1 applic BID TOP Last administered on 05/22/17 08:48; Admin Dose 1 APPLIC; Start 05/17/17 at 15:00 Benazepril HCl (Lotensin) 5 mg DAILY PO Last administered on 05/22/17 08:50; Admin Dose 5 MG; Start 05/21/17 at 12:00 CHANTEL COLLINS MD May 22, 2017 16:31
--- NOTE | 2017-05-27 11:57 | QN ---
Documentation Comment [id number] CHANTEL COLLINS MD May 27, 2017 11:57
--- NOTE | 2017-05-27 11:57 | QN ---
Documentation Comment [id number] CHANTEL COLLINS MD May 27, 2017 11:57
--- NOTE | 2017-05-27 11:57 | QN ---
Documentation Comment [id number] CHANTEL COLLINS MD May 27, 2017 11:57
--- NOTE | 2017-05-27 19:22 | DS ---
DATE OF ADMISSION: 05/15/2017 DATE OF DISCHARGE: 05/22/2017 The patient was admitted with diagnoses of congestive heart failure exacerbation , elevated BNP, short of breath, lower extremity edema, bilateral pleural effusion, left greater than right, history of coronary artery bypass graft, history of CAD and angioplasty history, history of atrial fibrillation, hypertension, dyslipidemia, PVD, GERD, renal insufficiency, anemia, cardiomegaly , history of glaucoma. The patient was seen in pulmonary consultation and was seen in cardiology consultation. The patient also was seen by Dr. Zapata in consultation, and his impression congestive heart failure exacerbation, mitral regurgitation, tricuspid regurgitation, aortic stenosis, moderate to severe. History of percutaneous transluminal coronary angioplasty and stent placement. s/p thoracentesis. The patient had a right mid lung thoracentesis with 810 mL of fluid was removed. The patient's symptoms are resolving and patient is stable to be discharged back to SNF. DISCHARGE DIAGNOSES: Includes: The patient has congestive heart failure exacerbation, better, bilateral pleural effusion, status post thoracentesis, history of coronary artery disease, angioplasty, history of atrial fibrillation , hypertension, dyslipidemia, history of peripheral vascular disease, history of gastroesophageal reflux disease, history of chronic kidney disease, history of anemia, cardiomegaly, history of glaucoma. The patient has anemia, azotemia , hypoxemic respiratory failure resolving, mitral regurgitation, aortic stenosis , pulmonary hypertension. The patient also has electrolyte imbalance, status post thoracentesis, tricuspid regurgitation, moderate to severe mitral regurgitation. DISCHARGE MEDICATIONS: To continue on: 1. Benazepril. 2. Coreg. 3. Docusate sodium. 4. Pepcid. 5. Hydrocodone. 6. Cough medicine. 7. Ambien. 8. Lasix. 9. Tylenol. 10. Amiodarone. 11. Ascorbic acid. 12. Lipitor. 13. Bisacodyl. 14. Calcium carbonate. 15. Pletal. 16. Plavix. 17. Cranberry extract. 18. Docusate sodium. 19. stool softner 20. Atrovent. 21. Levothyroxine. 22. Magnesium hydroxide. 23. Magnesium oxide. 24. Multiple vitamin. 25. Nitroglycerin. 26. Protonix. 27. Senna. 28. Simethicone. The patient is stable at the time of discharge. The patient will be followed up at SNF. DIET: Cardiac and renal diet. Dictated By: CHANTEL COLLINS MD BS/JOVANY Conf#: [id number] DID#: [id number]
== END 2017-05-22 19:50 | DRG 292 ==
LOC: E/R 18:34 → TEL 22:28
PROVIDERS: ADMIT Internal Medicine; ATTEND Internal Medicine
PROC: 0W993ZZ Drainage of Right Pleural Cavity, Percutaneous Approach (ICD-10-PCS; principal; 2017-05-17)
DX: I50.33 Acute on chronic diastolic (congestive) heart failure (principal); J90 Pleural effusion, not elsewhere classified; E87.0 Hyperosmolality and hypernatremia; I42.9 Cardiomyopathy, unspecified; I27.20 Pulmonary hypertension, unspecified; I48.91 Unspecified atrial fibrillation; D64.9 Anemia, unspecified; I35.0 Nonrheumatic aortic (valve) stenosis; E03.9 Hypothyroidism, unspecified; I25.10 Atherosclerotic heart disease of native coronary artery without angina pectoris; I11.0 Hypertensive heart disease with heart failure; H40.9 Unspecified glaucoma; I34.0 Nonrheumatic mitral (valve) insufficiency
CPT/HCPCS: 36415; 36600; 71010; 76942; 80048; 80053; 82550; 82553; 82803; 82945; 83615; 83735; 83880; 84100; 84157; 84484; 85025; 85610; 85730; 87070; 87081; 87102; 87116; 88104; 88305; 89051; 92526; 92610; 93005; 93306; 94640; 94664; 96374; J1940